=== PATIENT | female | born 1970 | race Caucasian/White ===

== ENCOUNTER 2019-02-24 09:44 | Inpatient (IN) | payer MEDICARE, MEDICAID ==
[~2019-02-24] VITALS: Ht 167.6 cm; Wt 190.0 kg
[~2019-02-24 09:44] MED LIST: BUPR300T86 PO; CELE200C PO
[2019-02-24] MEDS ORDERED: piperacillin/tazo 3.375gm/50ml 50 ML IV ONE (10:40)
[2019-02-24] MEDS ORDERED: vancomycin/NS 1 GM ADD-VANTAGE 250 ML IV ONE (10:40)
[2019-02-24] MEDS ORDERED: normal saline 1000ML IV soln IV ONE (10:40)
[2019-02-24 11:30] LABS: BASOPHILS % (AUTO) 0.5 % (0-1); EOSINOPHILS % (AUTO) 0.4 % (0-6); HEMOGLOBIN 14.3 g/dl (12.0-16.0); LYMPHOCYTES % (AUTO) 25.7 % (21-51); MEAN CORPUSCULAR HEMOGLOBIN 29.4 PG (27.0-31.0); MEAN CORPUSCULAR HGB CONC 33.3 g/dL (33.0-36.5); MEAN CORPUSCULAR VOLUME 88.4 FL (78-98); MONOCYTES # (AUTO) 0.5 X10'3 (0-0.9); MONOCYTES % (AUTO) 6.8 % (2-12); NEUTROPHILS # (AUTO) 5.1 X10'3 (1.8-7.7); NEUTROPHILS % (AUTO) 66.6 % (42-75); PLATELET COUNT 179 X10'3 (140-440); RED BLOOD COUNT 4.86 X10'6 (4.20-5.60); RED CELL DISTRIBUTION WIDTH 13.6 % (11.5-14.5); WHITE BLOOD COUNT 7.6 X10'3 (4.5-11.0)
[2019-02-24 12:05] LABS: ALANINE AMINOTRANSFERASE 14 U/L (12-78); ALBUMIN 3.3 G/DL (3.4-5.0); ALBUMIN/GLOBULIN RATIO 0.8 (1.1-1.5); ALKALINE PHOSPHATASE 60 IU/L (46-116); ANION GAP 9 (8-16); ASPARTATE AMINO TRANSFERASE 8 U/L (10-37); BILIRUBIN,TOTAL 0.6 MG/DL (0.1-1.0); BLOOD UREA NITROGEN 10 MG/DL (7-18); BUN/CREATININE RATIO 15.9 (6.6-38.0); CALCIUM 8.8 MG/DL (8.5-10.1); CHLORIDE 104 MMOL/L (99-107); CREATININE 0.63 MG/DL (0.40-0.90); GLUCOSE 99 MG/DL (70-104); POTASSIUM 3.7 MMOL/L (3.5-5.1); SODIUM 139 MMOL/L (135-145); TOTAL CARBON DIOXIDE 25.7 MMOL/L (24-32); TOTAL PROTEIN 7.7 G/DL (6.4-8.2); eGFR > 90 ML/MIN
[2019-02-24] MEDS ORDERED: magnesium Cl slow-release 64mg tablet PO PRN (12:50)
[2019-02-24] MEDS ORDERED: magnesium hydroxide 30ml (MOM) UD suspension PO PRN (12:50)
[2019-02-24] MEDS ORDERED: acetaminophen 325mg tablet PO PRN ×2 (12:50)
[2019-02-24] MEDS ORDERED: mag hydrox/Alum hydrox/simeth 30ml oral suspension PO PRN (12:50)
[2019-02-24] MEDS ORDERED: morphine 2 MG/ML inj. syringe IV PRN (12:50)
[2019-02-24] MEDS ORDERED: magnesium 2GM in 50ml NS 50 ML IV PRN (12:50)
[2019-02-24] MEDS ORDERED: potassium CL 10mEq/100ml bag 100 ML IV PRN ×2 (12:50)
[2019-02-24] MEDS ORDERED: potassium Cl 20 mEq SR tablet PO PRN (12:50)
[2019-02-24] MEDS ORDERED: magnesium 4gm in 100ml NS 100 ML IV PRN (12:50)
[2019-02-24] MEDS ORDERED: HYDROcodone/acetaminophen 5mg/325mg tablet PO PRN (12:50)
[2019-02-24] MEDS ORDERED: DULO30CA52 PO (12:58)
[2019-02-24] MEDS ORDERED: MIRT15TA PO (12:58)
[2019-02-24] MEDS ORDERED: NYST15PO4 TOP (13:01)
[2019-02-24] MEDS ORDERED: LORazepam 2 mg/ml vial IV STA (13:16)
[2019-02-24] MEDS ORDERED: LORazepam 2 mg/ml vial IV ONE (13:25)
--- NOTE | 2019-02-24 13:28 | NUR ---
pt talking with tech and began coughing and hyperventilating. Pt unwilling to open eyes or speak to staff. Ohlfs at bedside. Pt attempted to remove PIV with teeth said she wants to go home and tried to get up, biting at staff. MD requested soft upper limb restraints. Required 4 nurses and MD at bedside to keep patient from removing lines and not getting out of bed. Pt crying and appears to be trying to gag herself to throw up. HOB is up, suction at bedside. Attempting to calm patient down. Ativan given per MD order.
[2019-02-24] MEDS: normal saline 1000ml 1,000 ML IV SCH ×2 (14:10→22:49)
--- NOTE | 2019-02-24 15:20 | NUR ---
pt has wrist restraints but still managing to pull at PIV. Unable to administer vancomycin due to patient combativeness. Nurse at bedside. MD aware and pharmacist being called for medication schedule chnage.
--- NOTE | 2019-02-24 16:29 | NUR ---
non-behavioral restraints soft limb upper extremity restraints placed at 1323 per MD order. behavioral restraints were ordered by mistake. Charge nurse revising computer order. Pt was placed in soft limb restraints for confusion, pulling at lines, and unable to follow commands to keep patient safe.
--- NOTE | 2019-02-24 16:45 | NUR ---
Received report from KAILASH Ontiveros in ED.
[2019-02-24] MEDS: morphine 2 MG/ML inj. syringe IV PRN (17:21)
--- NOTE | 2019-02-24 17:40 | NUR ---
Patient receiving a lab draw and began hyperventilating, face became red, patient refused to respond to staff, or open her eyes. Kathi, dry charge process attendant, myself and sitter and aide at bedside, attempting to calm patient down. O2 saturation 98% with HR of 90, BP 150/90. Communicated to quality control lab technician to come back at a later time. Respiratory therapy called to bedside, got a fan and patient now calming down. notified and requested ativan. awaiting further orders.
[2019-02-24 17:51] VITALS: BP 150/98
[2019-02-24] MEDS: LORazepam 2 mg/ml vial IV PRN (18:21)
--- NOTE | 2019-02-24 18:35 | NUR ---
Patient in room [facility]. I have received report from Michelle LINDER and Rachel RN and had the opportunity to ask questions and assume patient care.
--- NOTE | 2019-02-24 18:36 | NUR ---
patient continues to bang head against the rail seizure pads placed and restraints, patient has sitter. medicated also with Ativan night staff will continue to monitor
--- NOTE | 2019-02-24 19:21 | NUR ---
Patient has just fallen to sleep, RN will give meds when patient wakes up as patient is very agitated and upset and a danger to self when awake. Patient is sleeping in bed, breathing even and unlabored. no s/s of distress. Sitter at bedside. Will continue to monitor closely.
[2019-02-24 21:00] VITALS: BP 132/69
[2019-02-24] MEDS: heparin, porcine 5000 units/ml vial SQ SCH (21:10)
[2019-02-24] MEDS: mirtazapine 15mg tablet PO SCH (21:26)
[2019-02-24] MEDS: docusate sod 100mg capsule PO SCH (21:26)
[2019-02-24] MEDS: HYDROcodone/acetaminophen 10/325mg tab PO PRN (21:38)
[2019-02-24] MEDS ORDERED: haloperidol lactate 5mg/ml inj IM PRN (21:50)
[2019-02-24] MEDS: quetiapine 100mg tablet PO PRN (22:00)
[2019-02-25] MEDS: normal saline 1000ml 1,000 ML IV SCH ×2 (00:21→12:41)
[2019-02-25 06:30] VITALS: BP 132/78
--- NOTE | 2019-02-25 06:35 | NUR ---
Problems reprioritized. Patient report given, questions answered & plan of care reviewed with Kristyn LINDER
--- NOTE | 2019-02-25 06:40 | NUR ---
Patient in room [facility]. I have received report from KAILASH Rosenberg and had the opportunity to ask questions and assume patient care.
--- NOTE | 2019-02-25 07:15 | NUR ---
Lab reports they are unable to obtain labs 2/2 pt resistance even with the help of 2 other people.
[2019-02-25] MEDS: K and/or MAG REPLACEMENT MC SCH (07:29)
[2019-02-25] MEDS: docusate sod 100mg capsule PO SCH ×2 (08:21→20:53)
[2019-02-25] MEDS: heparin, porcine 5000 units/ml vial SQ SCH ×2 (08:32→20:53)
[2019-02-25] MEDS: LORazepam 2 mg/ml vial IV PRN ×3 (08:50→17:58)
[2019-02-25 11:00] VITALS: BP 131/67
[2019-02-25] MEDS ORDERED: MESSAGE TO NURSING IV ONE (13:30)
[2019-02-25] MEDS ORDERED: VANCOMYCIN LEVEL IV NR (13:30)
[2019-02-25 14:15] LABS: ALBUMIN 2.7 G/DL (3.4-5.0); ANION GAP 8 (8-16); BLOOD UREA NITROGEN 6 MG/DL (7-18); BUN/CREATININE RATIO 10.7 (6.6-38.0); CALCIUM 8.3 MG/DL (8.5-10.1); CHLORIDE 108 MMOL/L (99-107); CREATININE 0.56 MG/DL (0.40-0.90); GLUCOSE 87 MG/DL (70-104); MAGNESIUM 1.9 MG/DL (1.5-2.4); POTASSIUM 3.9 MMOL/L (3.5-5.1); SODIUM 139 MMOL/L (135-145); eGFR > 90 ML/MIN
[2019-02-25 14:16] LABS: BASOPHILS % (AUTO) 0.3 % (0-1); EOSINOPHILS # (AUTO) 0.1 X10'3 (0-0.9); EOSINOPHILS % (AUTO) 1.4 % (0-6); HEMOGLOBIN 12.9 g/dl (12.0-16.0); LYMPHOCYTES # (AUTO) 1.9 X10'3 (1.1-4.8); LYMPHOCYTES % (AUTO) 29.4 % (21-51); MEAN CORPUSCULAR HEMOGLOBIN 29.5 PG (27.0-31.0); MEAN CORPUSCULAR VOLUME 89.5 FL (78-98); MEAN PLATELET VOLUME 10.3 FL (7.4-10.4); MONOCYTES # (AUTO) 0.3 X10'3 (0-0.9); MONOCYTES % (AUTO) 5.3 % (2-12); NEUTROPHILS # (AUTO) 4.1 X10'3 (1.8-7.7); NEUTROPHILS % (AUTO) 63.6 % (42-75); PLATELET COUNT 169 X10'3 (140-440); RED BLOOD COUNT 4.35 X10'6 (4.20-5.60); RED CELL DISTRIBUTION WIDTH 13.8 % (11.5-14.5); WHITE BLOOD COUNT 6.4 X10'3 (4.5-11.0)
[2019-02-25 18:00] VITALS: BP 128/72
--- NOTE | 2019-02-25 18:15 | NUR ---
Problems reprioritized. Patient report given, questions answered & plan of care reviewed with KAILASH De León.
--- NOTE | 2019-02-25 18:33 | NUR ---
Patient in room [facility]. I have received report from KAILASH Simons and had the opportunity to ask questions and assume patient care. Addendum: 02/25/19 at 1835 by Joan Hogan RN Amended: Links added.
[2019-02-25] MEDS: mirtazapine 15mg tablet PO SCH (20:53)
[2019-02-25] MEDS: lactobacillus rhamnosus 10,000 MMU CELLS/CAPSULE PO SCH (20:53)
[2019-02-26] MEDS: LORazepam 2 mg/ml vial IV PRN ×5 (00:16→23:06)
[2019-02-26] MEDS: quetiapine 100mg tablet PO PRN (00:30)
[2019-02-26] MEDS: normal saline 1000ml 1,000 ML IV SCH ×2 (05:32→15:14)
--- NOTE | 2019-02-26 06:15 | NUR ---
Patient in room [facility]. I have received report from KAILASH De León and had the opportunity to ask questions and assume patient care.
--- NOTE | 2019-02-26 06:29 | NUR ---
Problems reprioritized. Patient report given, questions answered & plan of care reviewed with KAILASH Simons. Addendum: 02/26/19 at 8728 by Joan Hogan RN Amended: Links added.
[2019-02-26 06:30] VITALS: BP 132/92
[2019-02-26] MEDS: K and/or MAG REPLACEMENT MC SCH (07:46)
[2019-02-26] MEDS: lactobacillus rhamnosus 10,000 MMU CELLS/CAPSULE PO SCH ×2 (09:42→22:41)
[2019-02-26] MEDS: docusate sod 100mg capsule PO SCH ×2 (09:42→22:41)
[2019-02-26] MEDS: heparin, porcine 5000 units/ml vial SQ SCH ×2 (09:46→22:43)
--- NOTE | 2019-02-26 12:00 | NUR ---
Pt refused VS check
[2019-02-26 14:45] LABS: CLARITY,URINE CLEAR (Clear); COLOR,URINE STRAW (Yellow); GLUCOSE, URINE NEGATIVE (Neg); KETONES,URINE >=80 mg/dl (Neg); LEUKOCYTE ESTERASE ,URINE NEGATIVE (Neg); NITRITES, URINE NEGATIVE (Neg); OCCULT BLOOD,URINE MODERATE (Neg); PH,URINE 5.5 (4.8-8.0); PROTEIN,URINE NEGATIVE (Neg); UROBILINOGEN,URINE 0.2 E.U/dL (0.2-1.0)
[2019-02-26 14:50] LABS: UA COLLECTION TYPE FOLEY CATH
[2019-02-26 14:54] LABS: BACTERIA,URINE FEW /HPF (Neg); MUCUS STRANDS FEW /LPF (Neg); SQUAMOUS EPITHELIAL CELL,UR FEW /LPF (FEW); WBC,URINE 0-4 /HPF (0-4)
--- NOTE | 2019-02-26 18:30 | NUR ---
Problems reprioritized. Patient report given, questions answered & plan of care reviewed with KAILASH Pagan.
--- NOTE | 2019-02-26 18:50 | NUR ---
Patient in room [facility]. I have received report from Kristyn LINDER and had the opportunity to ask questions and assume patient care.
[2019-02-26 19:00] VITALS: BP 142/52
[2019-02-26 20:13] LABS: BASOPHILS % (AUTO) 0.4 % (0-1); EOSINOPHILS # (AUTO) 0.1 X10'3 (0-0.9); EOSINOPHILS % (AUTO) 1.4 % (0-6); HEMATOCRIT 38.5 % (35.0-45.0); HEMOGLOBIN 12.6 g/dl (12.0-16.0); LYMPHOCYTES # (AUTO) 1.6 X10'3 (1.1-4.8); MEAN CORPUSCULAR HGB CONC 32.7 g/dL (33.0-36.5); MEAN CORPUSCULAR VOLUME 88.5 FL (78-98); MEAN PLATELET VOLUME 9.8 FL (7.4-10.4); MONOCYTES # (AUTO) 0.3 X10'3 (0-0.9); MONOCYTES % (AUTO) 5.1 % (2-12); NEUTROPHILS # (AUTO) 4.1 X10'3 (1.8-7.7); NEUTROPHILS % (AUTO) 67.1 % (42-75); PLATELET COUNT 171 X10'3 (140-440); RED BLOOD COUNT 4.35 X10'6 (4.20-5.60); RED CELL DISTRIBUTION WIDTH 13.8 % (11.5-14.5); WHITE BLOOD COUNT 6.2 X10'3 (4.5-11.0)
[2019-02-26 20:15] LABS: ALBUMIN 2.4 G/DL (3.4-5.0); ANION GAP 10 (8-16); BLOOD UREA NITROGEN 5 MG/DL (7-18); BUN/CREATININE RATIO 9.4 (6.6-38.0); CHLORIDE 107 MMOL/L (99-107); CREATININE 0.53 MG/DL (0.40-0.90); GLUCOSE 101 MG/DL (70-104); MAGNESIUM 1.7 MG/DL (1.5-2.4); POTASSIUM 3.3 MMOL/L (3.5-5.1); SODIUM 139 MMOL/L (135-145); TOTAL CARBON DIOXIDE 22.2 MMOL/L (24-32); eGFR > 90 ML/MIN
[2019-02-26] MEDS: mirtazapine 15mg tablet PO SCH (22:49)
[2019-02-26] MEDS: morphine 2 MG/ML inj. syringe IV PRN (23:30)
[2019-02-27] VITALS: BP 163/80
[2019-02-27] MEDS: normal saline 1000ml 1,000 ML IV SCH ×2 (00:49→11:43)
[2019-02-27] MEDS: potassium Cl 20 mEq SR tablet PO PRN ×2 (02:40→08:10)
[2019-02-27] MEDS: quetiapine 100mg tablet PO PRN (02:40)
--- NOTE | 2019-02-27 06:15 | NUR ---
Patient in room [facility]. I have received report from KAILASH Pagan and had the opportunity to ask questions and assume patient care.
[2019-02-27 06:30] VITALS: BP 164/91
--- NOTE | 2019-02-27 06:46 | NUR ---
Problems reprioritized. Patient report given, questions answered & plan of care reviewed with Kristyn RN.
[2019-02-27] MEDS: K and/or MAG REPLACEMENT MC SCH (06:50)
[2019-02-27] MEDS: docusate sod 100mg capsule PO SCH ×2 (07:47→20:00)
[2019-02-27] MEDS: heparin, porcine 5000 units/ml vial SQ SCH ×2 (07:47→20:00)
[2019-02-27] MEDS: lactobacillus rhamnosus 10,000 MMU CELLS/CAPSULE PO SCH ×2 (07:47→20:00)
[2019-02-27] MEDS: CefTRIAXone 2gm/D5W 50ml 50 ML IV SCH (07:48)
[2019-02-27] MEDS: LORazepam 2 mg/ml vial IV PRN ×2 (07:48→13:52)
[2019-02-27 11:00] VITALS: BP 184/93
[2019-02-27] MEDS: morphine 2 MG/ML inj. syringe IV PRN (11:44)
[2019-02-27 16:44] LABS: BASOPHILS % (AUTO) 0.4 % (0-1); EOSINOPHILS # (AUTO) 0.1 X10'3 (0-0.9); EOSINOPHILS % (AUTO) 1.5 % (0-6); HEMOGLOBIN 12.9 g/dl (12.0-16.0); LYMPHOCYTES # (AUTO) 1.6 X10'3 (1.1-4.8); LYMPHOCYTES % (AUTO) 26.7 % (21-51); MEAN CORPUSCULAR HEMOGLOBIN 29.2 PG (27.0-31.0); MEAN CORPUSCULAR HGB CONC 33.1 g/dL (33.0-36.5); MEAN CORPUSCULAR VOLUME 88.3 FL (78-98); MEAN PLATELET VOLUME 9.8 FL (7.4-10.4); MONOCYTES # (AUTO) 0.3 X10'3 (0-0.9); MONOCYTES % (AUTO) 5.7 % (2-12); NEUTROPHILS % (AUTO) 65.7 % (42-75); PLATELET COUNT 183 X10'3 (140-440); RED BLOOD COUNT 4.42 X10'6 (4.20-5.60); RED CELL DISTRIBUTION WIDTH 13.6 % (11.5-14.5); WHITE BLOOD COUNT 6.1 X10'3 (4.5-11.0)
[2019-02-27 16:54] LABS: ALBUMIN 2.4 G/DL (3.4-5.0); ANION GAP 9 (8-16); BLOOD UREA NITROGEN 5 MG/DL (7-18); BUN/CREATININE RATIO 9.4 (6.6-38.0); CALCIUM 7.7 MG/DL (8.5-10.1); CHLORIDE 109 MMOL/L (99-107); CREATININE 0.53 MG/DL (0.40-0.90); GLUCOSE 99 MG/DL (70-104); MAGNESIUM 1.7 MG/DL (1.5-2.4); POTASSIUM 3.5 MMOL/L (3.5-5.1); SODIUM 141 MMOL/L (135-145); eGFR > 90 ML/MIN
--- NOTE | 2019-02-27 18:40 | NUR ---
Problems reprioritized. Patient report given, questions answered & plan of care reviewed with KAILASH Haley.
[2019-02-27 20:00] VITALS: BP 149/74
[2019-02-28 00:57] VITALS: BP 123/66
[2019-02-28] MEDS ORDERED: DULO-31 PO (01:22)
[2019-02-28] MEDS ORDERED: FURO-150 PO (01:22)
[2019-02-28] MEDS ORDERED: POTA10TA36 PO (01:22)
[2019-02-28] MEDS: mirtazapine 15mg tablet PO SCH ×2 (03:20→20:13)
[2019-02-28] MEDS: LORazepam 2 mg/ml vial IV PRN ×2 (03:56→09:25)
[2019-02-28 05:13] LABS: BASOPHILS # (AUTO) 0.1 X10'3 (0-0.2); BASOPHILS % (AUTO) 0.9 % (0-1); EOSINOPHILS # (AUTO) 0.1 X10'3 (0-0.9); EOSINOPHILS % (AUTO) 1.6 % (0-6); HEMATOCRIT 40.7 % (35.0-45.0); HEMOGLOBIN 13.2 g/dl (12.0-16.0); LYMPHOCYTES # (AUTO) 1.7 X10'3 (1.1-4.8); LYMPHOCYTES % (AUTO) 27.2 % (21-51); MEAN CORPUSCULAR HEMOGLOBIN 28.8 PG (27.0-31.0); MEAN CORPUSCULAR HGB CONC 32.5 g/dL (33.0-36.5); MEAN CORPUSCULAR VOLUME 88.6 FL (78-98); MEAN PLATELET VOLUME 9.7 FL (7.4-10.4); MONOCYTES # (AUTO) 0.5 X10'3 (0-0.9); MONOCYTES % (AUTO) 7.3 % (2-12); PLATELET COUNT 187 X10'3 (140-440); RED BLOOD COUNT 4.59 X10'6 (4.20-5.60); RED CELL DISTRIBUTION WIDTH 13.9 % (11.5-14.5); WHITE BLOOD COUNT 6.4 X10'3 (4.5-11.0)
[2019-02-28 05:38] LABS: ALBUMIN 2.5 G/DL (3.4-5.0); ANION GAP 10 (8-16); BLOOD UREA NITROGEN 5 MG/DL (7-18); BUN/CREATININE RATIO 9.8 (6.6-38.0); CALCIUM 8.3 MG/DL (8.5-10.1); CHLORIDE 108 MMOL/L (99-107); CREATININE 0.51 MG/DL (0.40-0.90); GLUCOSE 102 MG/DL (70-104); MAGNESIUM 1.6 MG/DL (1.5-2.4); POTASSIUM 3.3 MMOL/L (3.5-5.1); SODIUM 141 MMOL/L (135-145); TOTAL CARBON DIOXIDE 23.1 MMOL/L (24-32); eGFR > 90 ML/MIN
--- NOTE | 2019-02-28 06:37 | NUR ---
Problems reprioritized. Patient report given, questions answered & plan of care reviewed with KAILASH Brown.
[2019-02-28 07:24] VITALS: BP 164/91
[2019-02-28] MEDS: K and/or MAG REPLACEMENT MC SCH (08:00)
[2019-02-28] MEDS: docusate sod 100mg capsule PO SCH ×2 (08:00→20:13)
[2019-02-28] MEDS: CefTRIAXone 2gm/D5W 50ml 50 ML IV SCH (09:15)
[2019-02-28] MEDS: heparin, porcine 5000 units/ml vial SQ SCH ×2 (09:25→20:12)
[2019-02-28] MEDS: lactobacillus rhamnosus 10,000 MMU CELLS/CAPSULE PO SCH ×2 (09:25→20:13)
[2019-02-28] MEDS: HYDROcodone/acetaminophen 10/325mg tab PO PRN (14:02)
[2019-02-28] MEDS ORDERED: potassium CL 10mEq/100ml bag 100 ML IV PRN (16:05)
[2019-02-28] MEDS ORDERED: potassium Cl 20 mEq SR tablet PO PRN (16:05)
[2019-02-28] MEDS: duloxetine 30mg CAPSULE.DR PO SCH (17:35)
[2019-02-28] MEDS: potassium Cl 20 mEq SR tablet PO PRN ×2 (17:36→21:27)
--- NOTE | 2019-02-28 18:57 | NUR ---
Patient in room [facility]. I have received report from KAILASH Fletcher and had the opportunity to ask questions and assume patient care. Addendum: 02/28/19 at 1857 by Joan Hogan RN Amended: Links added.
[2019-02-28 20:00] VITALS: BP 158/90
[2019-02-28] MEDS: morphine 2 MG/ML inj. syringe IV PRN (20:11)
[2019-02-28] MEDS: potassium chloride 10mEq ER tablet PO SCH (20:13)
[2019-02-28] MEDS: furosemide 20MG tablet PO SCH (20:13)
[2019-02-28] MEDS: quetiapine 100mg tablet PO PRN (21:29)
[2019-03-01] VITALS: BP 159/90
--- NOTE | 2019-03-01 06:30 | NUR ---
Problems reprioritized. Patient report given, questions answered & plan of care reviewed with KAILASH TITUS.
[2019-03-01 07:08] LABS: BASOPHILS % (AUTO) 0.6 % (0-1); EOSINOPHILS # (AUTO) 0.1 X10'3 (0-0.9); HEMATOCRIT 42.3 % (35.0-45.0); HEMOGLOBIN 14.1 g/dl (12.0-16.0); LYMPHOCYTES # (AUTO) 1.5 X10'3 (1.1-4.8); LYMPHOCYTES % (AUTO) 20.3 % (21-51); MEAN CORPUSCULAR HEMOGLOBIN 29.3 PG (27.0-31.0); MEAN CORPUSCULAR HGB CONC 33.3 g/dL (33.0-36.5); MEAN CORPUSCULAR VOLUME 87.9 FL (78-98); MONOCYTES # (AUTO) 0.5 X10'3 (0-0.9); MONOCYTES % (AUTO) 7.3 % (2-12); NEUTROPHILS # (AUTO) 5.1 X10'3 (1.8-7.7); NEUTROPHILS % (AUTO) 69.8 % (42-75); PLATELET COUNT 190 X10'3 (140-440); RED BLOOD COUNT 4.82 X10'6 (4.20-5.60); RED CELL DISTRIBUTION WIDTH 13.6 % (11.5-14.5); WHITE BLOOD COUNT 7.3 X10'3 (4.5-11.0)
[2019-03-01 07:25] VITALS: BP 144/71
[2019-03-01 07:36] LABS: ALBUMIN 2.7 G/DL (3.4-5.0); ANION GAP 7 (8-16); BLOOD UREA NITROGEN 6 MG/DL (7-18); BUN/CREATININE RATIO 11.1 (6.6-38.0); CALCIUM 8.6 MG/DL (8.5-10.1); CHLORIDE 105 MMOL/L (99-107); CREATININE 0.54 MG/DL (0.40-0.90); GLUCOSE 101 MG/DL (70-104); MAGNESIUM 1.5 MG/DL (1.5-2.4); SODIUM 141 MMOL/L (135-145); TOTAL CARBON DIOXIDE 29.1 MMOL/L (24-32); eGFR > 90 ML/MIN
[2019-03-01] MEDS: K and/or MAG REPLACEMENT MC SCH (08:00)
[2019-03-01] MEDS: potassium chloride 10mEq ER tablet PO SCH ×2 (08:13→20:08)
[2019-03-01] MEDS: CefTRIAXone 2gm/D5W 50ml 50 ML IV SCH (08:13)
[2019-03-01] MEDS: duloxetine 30mg CAPSULE.DR PO SCH (08:13)
[2019-03-01] MEDS: lactobacillus rhamnosus 10,000 MMU CELLS/CAPSULE PO SCH ×2 (08:13→20:08)
[2019-03-01] MEDS: heparin, porcine 5000 units/ml vial SQ SCH ×2 (08:14→20:13)
[2019-03-01] MEDS: docusate sod 100mg capsule PO SCH ×2 (08:14→20:08)
[2019-03-01] MEDS: furosemide 20MG tablet PO SCH ×2 (08:14→20:08)
[2019-03-01 11:00] VITALS: BP 156/87
--- NOTE | 2019-03-01 11:05 | NUR ---
Initial: Pt admit with bilat chronic lymphedema with suspected cellulitis. Pt has been in restraints with a sitter d/t current mentation. Pt on heart healthy diet documented to have refused all meals 02/25-02/27; poor PO intake likely r/t mentation. Pt documented with 75-100% PO intake 02/28, pending PO intake for today. Per MD notes pt overall behaving a little better. Pt A/O x 1 and confused per physical assessment. LB 02/27. Will follow closely and monitor PO trends and need for ONS. Recommendations: 1) Advance to regular diet as medically indicated 2) Monitor need for ONS 3) Wt per rx Addendum: 03/01/19 at [address] Amended: Links added.
[2019-03-01] MEDS: LORazepam 2 mg/ml vial IV PRN ×2 (13:21→20:23)
--- NOTE | 2019-03-01 18:12 | NUR ---
Problems reprioritized. Patient report given, questions answered & plan of care reviewed with KAILASH Haley.
--- NOTE | 2019-03-01 18:30 | NUR ---
Patient in room [facility]. I have received report from KAILASH TITUS and had the opportunity to ask questions and assume patient care. Addendum: 03/01/19 at 1830 by Joan Hogan RN Amended: Links added.
[2019-03-01 20:00] VITALS: BP 115/70
[2019-03-01] MEDS: mirtazapine 15mg tablet PO SCH (20:08)
[2019-03-02] VITALS: BP 147/83
[2019-03-02] MEDS: nystatin 15 GM powder TP SCH ×4 (02:42→20:20)
[2019-03-02] MEDS: LORazepam 2 mg/ml vial IV PRN ×3 (02:48→20:34)
--- NOTE | 2019-03-02 06:27 | NUR ---
Problems reprioritized. Patient report given, questions answered & plan of care reviewed with KAILASH Luis.
[2019-03-02 07:15] VITALS: BP 144/84
[2019-03-02] MEDS: K and/or MAG REPLACEMENT MC SCH (08:00)
[2019-03-02] MEDS: potassium chloride 10mEq ER tablet PO SCH ×2 (08:27→20:13)
[2019-03-02] MEDS: CefTRIAXone 2gm/D5W 50ml 50 ML IV SCH (08:27)
[2019-03-02] MEDS: furosemide 20MG tablet PO SCH ×2 (08:27→20:14)
[2019-03-02] MEDS: lactobacillus rhamnosus 10,000 MMU CELLS/CAPSULE PO SCH ×2 (08:27→20:14)
[2019-03-02] MEDS: duloxetine 30mg CAPSULE.DR PO SCH (08:27)
[2019-03-02] MEDS: docusate sod 100mg capsule PO SCH ×2 (08:27→20:13)
[2019-03-02] MEDS: heparin, porcine 5000 units/ml vial SQ SCH ×2 (08:28→20:12)
[2019-03-02 11:00] VITALS: BP 122/81
[2019-03-02 18:00] VITALS: BP 112/59
--- NOTE | 2019-03-02 18:25 | NUR ---
Patient in room [facility]. I have received report from KAILASH Moe and had the opportunity to ask questions and assume patient care.
--- NOTE | 2019-03-02 18:45 | NUR ---
Problems reprioritized. Patient report given, questions answered & plan of care reviewed with KAILASH Billy.
[2019-03-02] MEDS: mirtazapine 15mg tablet PO SCH (20:13)
[2019-03-03] VITALS: BP 108/67
--- NOTE | 2019-03-03 06:37 | NUR ---
Problems reprioritized. Patient report given, questions answered & plan of care reviewed with KAILASH Kothari.
--- NOTE | 2019-03-03 06:39 | NUR ---
Patient in room [facility]. I have received report from KAILASH Billy and had the opportunity to ask questions and assume patient care.
[2019-03-03 08:00] VITALS: BP 129/75
[2019-03-03] MEDS: K and/or MAG REPLACEMENT MC SCH (08:00)
[2019-03-03] MEDS: duloxetine 30mg CAPSULE.DR PO SCH (09:28)
[2019-03-03] MEDS: lactobacillus rhamnosus 10,000 MMU CELLS/CAPSULE PO SCH ×2 (09:28→20:25)
[2019-03-03] MEDS: docusate sod 100mg capsule PO SCH ×2 (09:28→20:25)
[2019-03-03] MEDS: potassium chloride 10mEq ER tablet PO SCH ×2 (09:28→20:25)
[2019-03-03] MEDS: cefpodoxime proxetil 100mg tablet PO SCH ×2 (09:28→17:30)
[2019-03-03] MEDS: heparin, porcine 5000 units/ml vial SQ SCH ×2 (09:29→20:31)
[2019-03-03] MEDS: furosemide 20MG tablet PO SCH ×2 (09:29→20:25)
[2019-03-03] MEDS: nystatin 15 GM powder TP SCH ×3 (09:29→20:33)
[2019-03-03 12:00] VITALS: BP 109/60
[2019-03-03] MEDS: LORazepam 2 mg/ml vial IV PRN ×2 (13:39→20:27)
[2019-03-03 18:00] VITALS: BP 110/65
--- NOTE | 2019-03-03 18:22 | NUR ---
Patient in room [facility]. I have received report from KAILASH MERRITT and had the opportunity to ask questions and assume patient care.
--- NOTE | 2019-03-03 18:22 | NUR ---
Patient in PROCEDURE, EGD. I have received report from KAILASH MERRITT and had the opportunity to ask questions and assume patient care. AWAITING PT ARRIVAL BACK TO UNIT FROM PROCEDURE. Addendum: 03/03/19 at 1847 by Jeovanny Law RN DISREGARD NOTE, WRONG PATIENT
--- NOTE | 2019-03-03 18:45 | NUR ---
Problems reprioritized. Patient report given, questions answered & plan of care reviewed with KAILASH Billy.
[2019-03-03] MEDS: mirtazapine 15mg tablet PO SCH (20:25)
--- NOTE | 2019-03-03 21:45 | NUR ---
pt attempted to exit bed. after placing back into bed, surrounding skin of genitalia breakdown noted. placed Calazime lotion and nystatin.
[2019-03-04] VITALS: BP_SYST 115; BP_SYST 125; BP_DIAS 60; BP_DIAS 61
--- NOTE | 2019-03-04 06:25 | NUR ---
Patient in room [facility]. I have received report from KAILASH Billy and had the opportunity to ask questions and assume patient care.
[2019-03-04 06:30] VITALS: BP 117/71
--- NOTE | 2019-03-04 06:46 | NUR ---
Problems reprioritized. Patient report given, questions answered & plan of care reviewed with KAILASH Simons.
[2019-03-04] MEDS: K and/or MAG REPLACEMENT MC SCH (07:17)
[2019-03-04] MEDS: cefpodoxime proxetil 100mg tablet PO SCH ×2 (08:47→17:19)
[2019-03-04] MEDS: potassium chloride 10mEq ER tablet PO SCH ×2 (08:47→20:09)
[2019-03-04] MEDS: docusate sod 100mg capsule PO SCH ×2 (08:47→20:09)
[2019-03-04] MEDS: furosemide 20MG tablet PO SCH ×2 (08:49→20:09)
[2019-03-04] MEDS: lactobacillus rhamnosus 10,000 MMU CELLS/CAPSULE PO SCH ×2 (08:49→20:09)
[2019-03-04] MEDS: heparin, porcine 5000 units/ml vial SQ SCH ×2 (08:49→20:11)
[2019-03-04] MEDS: duloxetine 30mg CAPSULE.DR PO SCH (08:49)
[2019-03-04] MEDS: nystatin 15 GM powder TP SCH ×3 (08:51→20:12)
[2019-03-04 11:00] VITALS: BP 135/78
[2019-03-04 18:00] VITALS: BP 127/70
--- NOTE | 2019-03-04 18:07 | NUR ---
Patient in room [facility]. I have received report from KAILASH Simons and had the opportunity to ask questions and assume patient care.
[2019-03-04] MEDS: mirtazapine 15mg tablet PO SCH (20:09)
[2019-03-04] MEDS: LORazepam 2 mg/ml vial IV PRN (22:52)
[2019-03-05] VITALS: BP 113/85
[2019-03-05 06:30] VITALS: BP 144/78
--- NOTE | 2019-03-05 06:30 | NUR ---
Patient in room [facility]. I have received report from KAILASH Billy and had the opportunity to ask questions and assume patient care.
--- NOTE | 2019-03-05 06:33 | NUR ---
Problems reprioritized. Patient report given, questions answered & plan of care reviewed with KAILASH Simons.
[2019-03-05] MEDS: K and/or MAG REPLACEMENT MC SCH (06:56)
[2019-03-05 09:49] LABS: BASOPHILS # (AUTO) 0.1 X10'3 (0-0.2); BASOPHILS % (AUTO) 0.9 % (0-1); EOSINOPHILS # (AUTO) 0.2 X10'3 (0-0.9); EOSINOPHILS % (AUTO) 2.6 % (0-6); HEMATOCRIT 48.2 % (35.0-45.0); HEMOGLOBIN 16.3 g/dl (12.0-16.0); LYMPHOCYTES % (AUTO) 29.5 % (21-51); MEAN CORPUSCULAR HEMOGLOBIN 29.6 PG (27.0-31.0); MEAN CORPUSCULAR HGB CONC 33.7 g/dL (33.0-36.5); MEAN CORPUSCULAR VOLUME 87.8 FL (78-98); MEAN PLATELET VOLUME 9.8 FL (7.4-10.4); MONOCYTES # (AUTO) 0.5 X10'3 (0-0.9); MONOCYTES % (AUTO) 7.8 % (2-12); NEUTROPHILS % (AUTO) 59.2 % (42-75); PLATELET COUNT 199 X10'3 (140-440); RED BLOOD COUNT 5.49 X10'6 (4.20-5.60); RED CELL DISTRIBUTION WIDTH 13.8 % (11.5-14.5); WHITE BLOOD COUNT 6.8 X10'3 (4.5-11.0)
[2019-03-05] MEDS: potassium chloride 10mEq ER tablet PO SCH ×2 (09:54→20:22)
[2019-03-05] MEDS: lactobacillus rhamnosus 10,000 MMU CELLS/CAPSULE PO SCH ×2 (09:54→20:21)
[2019-03-05] MEDS: docusate sod 100mg capsule PO SCH ×2 (09:54→20:21)
[2019-03-05] MEDS: furosemide 20MG tablet PO SCH ×2 (09:55→20:22)
[2019-03-05] MEDS: duloxetine 30mg CAPSULE.DR PO SCH (09:55)
[2019-03-05] MEDS: heparin, porcine 5000 units/ml vial SQ SCH ×2 (09:56→20:24)
[2019-03-05] MEDS: nystatin 15 GM powder TP SCH ×3 (09:56→20:22)
[2019-03-05 10:00] LABS: ALBUMIN 3.2 G/DL (3.4-5.0); ANION GAP 6 (8-16); BLOOD UREA NITROGEN 14 MG/DL (7-18); BUN/CREATININE RATIO 20.9 (6.6-38.0); CHLORIDE 100 MMOL/L (99-107); CREATININE 0.67 MG/DL (0.40-0.90); GLUCOSE 120 MG/DL (70-104); MAGNESIUM 1.8 MG/DL (1.5-2.4); POTASSIUM 3.9 MMOL/L (3.5-5.1); SODIUM 138 MMOL/L (135-145); TOTAL CARBON DIOXIDE 32.1 MMOL/L (24-32); eGFR > 90 ML/MIN
[2019-03-05 10:02] LABS: CALCIUM 9.6 MG/DL (8.5-10.1)
[2019-03-05] MEDS: LORazepam 2 mg/ml vial IV PRN ×3 (10:30→20:19)
[2019-03-05 11:00] VITALS: BP 136/76
--- NOTE | 2019-03-05 14:52 | NUR ---
Nutrition consult RE "pt requests only veggies broccoli and asparagus; likes hamburgers:" Pt currently AOx1 w/ acute psychotic symptoms including mood swings, agitation, and self-harm following behavioral healthy MD per MD note. Will continue to send regular diet and monitor for pt preferences once more appropriate. PO 25%/refusing meals w/ ALOC. LBM 03/04. Ensure pudding TIDWM added for additional protein needs; dietary notified. Will continue to monitor. Recommendations: 1) Continue regular diet 2) ensure pudding TIDWM 3) Wt per rx Addendum: 03/05/19 at [address] Amended: Links added.
--- NOTE | 2019-03-05 15:15 | NUR ---
Bladder nfbw=263. Pt has not voided today & states the last time she voided it severely burned. Request for FC from . Order received.
[2019-03-05 15:57] LABS: CLARITY,URINE SLIGHTLY CLOUDY (Clear); COLOR,URINE YELLOW (Yellow); GLUCOSE, URINE NEGATIVE (Neg); KETONES,URINE NEGATIVE (Neg); LEUKOCYTE ESTERASE ,URINE MODERATE (Neg); NITRITES, URINE NEGATIVE (Neg); OCCULT BLOOD,URINE TRACE-LYSED (Neg); PROTEIN,URINE NEGATIVE (Neg); UROBILINOGEN,URINE 0.2 E.U/dL (0.2-1.0)
[2019-03-05 16:03] LABS: UA COLLECTION TYPE NON-SPECIFIED
[2019-03-05 16:06] LABS: BACTERIA,URINE 1+ /HPF (Neg); MUCUS STRANDS FEW /LPF (Neg); RBC,URINE 0-2 /HPF (0-2); SQUAMOUS EPITHELIAL CELL,UR MODERATE /LPF (FEW)
[2019-03-05 16:07] LABS: CAL OXALATE CRYSTALS 1+ /HPF (NEGATIVE); HYALINE CASTS 0-3 /LPF (NEGATIVE); YEAST FEW /HPF (NEGATIVE)
--- NOTE | 2019-03-05 18:20 | NUR ---
Patient in room [facility]. I have received report from Autumn LINDER and had the opportunity to ask questions and assume patient care.
--- NOTE | 2019-03-05 18:25 | NUR ---
Problems reprioritized. Patient report given, questions answered & plan of care reviewed with KAILASH Pagan.
[2019-03-05] MEDS: ondansetron/PF 4mg/2ml inj IV PRN (18:57)
[2019-03-05 19:00] VITALS: BP 133/81
[2019-03-05] MEDS: HYDROcodone/acetaminophen 10/325mg tab PO PRN (20:22)
[2019-03-05] MEDS: mirtazapine 15mg tablet PO SCH (20:28)
[2019-03-06] VITALS: BP 125/71
[2019-03-06] MEDS: LORazepam 2 mg/ml vial IV PRN ×3 (02:07→21:36)
--- NOTE | 2019-03-06 04:15 | NUR ---
Bladder scanned as patient has not voided since around 8pm. Scanner revealed 208ml. Patient was also bladder scanned earlier at 1am with only 98cc in ladder at this time. Have been trying to encourage patient to drink more when awake, but patient will only take a few sips at a time, despite juices being offered.
--- NOTE | 2019-03-06 06:25 | NUR ---
Patient in room [facility]. I have received report from KAILASH Pagan and had the opportunity to ask questions and assume patient care.
[2019-03-06 06:30] VITALS: BP 125/67
--- NOTE | 2019-03-06 06:30 | NUR ---
Patient in room [facility]. I have received report from Kristyn LINDER and had the opportunity to ask questions and assume patient care.
[2019-03-06] MEDS: K and/or MAG REPLACEMENT MC SCH (06:49)
[2019-03-06] MEDS: heparin, porcine 5000 units/ml vial SQ SCH ×2 (08:40→21:35)
[2019-03-06] MEDS: duloxetine 30mg CAPSULE.DR PO SCH (08:40)
[2019-03-06] MEDS: potassium chloride 10mEq ER tablet PO SCH ×2 (08:40→21:34)
[2019-03-06] MEDS: lactobacillus rhamnosus 10,000 MMU CELLS/CAPSULE PO SCH ×2 (08:40→21:34)
[2019-03-06] MEDS: furosemide 20MG tablet PO SCH ×2 (08:40→21:34)
[2019-03-06] MEDS: docusate sod 100mg capsule PO SCH ×2 (08:40→21:34)
[2019-03-06] MEDS: nystatin 15 GM powder TP SCH ×3 (08:41→21:36)
--- NOTE | 2019-03-06 09:50 | NUR ---
Dr Mauricio notified of pt recently was having a state of staring @ the ceiling w/o blinking X several mins while grunting. Ativan given & w/in a minute pt closed her eyes & fell asleep. Dr Mauricio states to have the psych MD to come see pt again today. [facility] notified & they state Dr Acevedo is not in yet, but they will inform him when he does rounds today.
[2019-03-06 11:00] VITALS: BP 126/78
[2019-03-06] MEDS: dextrose 5%-normal saline 1,000 ML IV SCH (12:22)
--- NOTE | 2019-03-06 18:35 | NUR ---
Problems reprioritized. Patient report given, questions answered & plan of care reviewed with KAILASH Pagan.
--- NOTE | 2019-03-06 18:35 | NUR ---
Patient in room [facility]. I have received report from Autumn LINDER and had the opportunity to ask questions and assume patient care.
[2019-03-06 19:00] VITALS: BP 126/79
[2019-03-06] MEDS: mirtazapine 15mg tablet PO SCH (21:35)
[2019-03-07] VITALS: BP 116/67
[2019-03-07] MEDS: dextrose 5%-normal saline 1,000 ML IV SCH ×2 (04:12→20:32)
[2019-03-07] MEDS: HYDROcodone/acetaminophen 10/325mg tab PO PRN (05:00)
[2019-03-07] MEDS: LORazepam 2 mg/ml vial IV PRN ×4 (05:00→20:46)
--- NOTE | 2019-03-07 06:30 | NUR ---
Patient in room [facility]. I have received report from EVITA LINDER and had the opportunity to ask questions and assume patient care.
--- NOTE | 2019-03-07 06:40 | NUR ---
Reported off to Lv LINDER. Sitter at bedside.
[2019-03-07 07:37] VITALS: BP 110/72
[2019-03-07] MEDS: K and/or MAG REPLACEMENT MC SCH (08:00)
[2019-03-07] MEDS: docusate sod 100mg capsule PO SCH ×2 (09:59→20:33)
[2019-03-07] MEDS: lactobacillus rhamnosus 10,000 MMU CELLS/CAPSULE PO SCH ×2 (09:59→20:33)
[2019-03-07] MEDS: furosemide 20MG tablet PO SCH ×2 (10:00→20:33)
[2019-03-07] MEDS: potassium chloride 10mEq ER tablet PO SCH ×2 (10:00→20:33)
[2019-03-07] MEDS: duloxetine 30mg CAPSULE.DR PO SCH (10:01)
[2019-03-07] MEDS: heparin, porcine 5000 units/ml vial SQ SCH ×2 (10:02→20:34)
[2019-03-07] MEDS: nystatin 15 GM powder TP SCH ×3 (10:02→20:34)
[2019-03-07 11:00] VITALS: BP 114/78
--- NOTE | 2019-03-07 18:30 | NUR ---
Problems reprioritized. Patient report given, questions answered & plan of care reviewed with Rachel LINDER.
[2019-03-07 20:00] VITALS: BP 138/71
[2019-03-07] MEDS: mirtazapine 15mg tablet PO SCH (20:33)
[2019-03-08] VITALS: BP 126/62
[2019-03-08] MEDS: LORazepam 2 mg/ml vial IV PRN ×2 (04:03→08:22)
--- NOTE | 2019-03-08 06:35 | NUR ---
Problems reprioritized. Patient report given, questions answered & plan of care reviewed with Lv RN.
[2019-03-08 07:29] VITALS: BP 134/68
[2019-03-08] MEDS: K and/or MAG REPLACEMENT MC SCH (08:00)
[2019-03-08] MEDS: potassium chloride 10mEq ER tablet PO SCH ×2 (08:20→19:34)
[2019-03-08] MEDS: docusate sod 100mg capsule PO SCH ×2 (08:20→19:34)
[2019-03-08] MEDS: furosemide 20MG tablet PO SCH ×2 (08:20→19:35)
[2019-03-08] MEDS: duloxetine 30mg CAPSULE.DR PO SCH (08:21)
[2019-03-08] MEDS: lactobacillus rhamnosus 10,000 MMU CELLS/CAPSULE PO SCH ×2 (08:21→19:35)
[2019-03-08] MEDS: heparin, porcine 5000 units/ml vial SQ SCH ×2 (08:22→19:34)
[2019-03-08] MEDS: nystatin 15 GM powder TP SCH ×3 (08:27→19:34)
--- NOTE | 2019-03-08 10:41 | NUR ---
Reassessment: Per MD notes cellulitis clinically improving and pt continues with Lasix for lymphedema. PO intake seems to be improving. Pt documented with 0-25% PO intake 03/06 and 50-100% PO intake 03/07, pending PO intake for today. LBM 03/07. Per MD notes pt continues with a sitter with restraints PRN and awaiting SNF placement. Will continue to follow. Recommendations: 1) Continue regular diet 2) ensure pudding TIDWM 3) Wt per rx Addendum: 03/08/19 at [address] Amended: Links added.
[2019-03-08 11:00] VITALS: BP 129/78
--- NOTE | 2019-03-08 15:28 | NUR ---
Pt requested specialty lymphadema wrapping to be applied to legs before discharge d/t her concern the "wrapping" will not be available unless she goes to a facility after discharge. This was discussed w/ Dr. Mauricio and KAILASH Awan. stated there is no medical necessity at this time for wraps, and RN reiterated CM stated no facilities are accepting pt, and current plan is pt will be d/c'g to her private residence w/ [facility] to follow pt. Pt was instructed that wraps will not be applied at this time.
--- NOTE | 2019-03-08 18:57 | NUR ---
Problems reprioritized. Patient report given, questions answered & plan of care reviewed with Sierra LINDER.
[2019-03-08] MEDS: mirtazapine 15mg tablet PO SCH (19:34)
[2019-03-08] MEDS: LORazepam 1 MG tablet PO PRN (19:34)
--- NOTE | 2019-03-09 02:12 | NUR ---
Patient in room [facility]. I have received report from KAILASH Awan and had the opportunity to ask questions and assume patient care. Addendum: 03/09/19 at 0213 by Sierra Flower RN Amended: Links added.
[2019-03-09] MEDS: LORazepam 1 MG tablet PO PRN ×3 (03:04→20:00)
[2019-03-09] MEDS ORDERED: ziprasidone IM 20mg inj **IM only IM ONE (03:30)
--- NOTE | 2019-03-09 06:20 | NUR ---
Patient in room [facility]. I have received report from KAILASH Esquivel and had the opportunity to ask questions and assume patient care.
--- NOTE | 2019-03-09 06:35 | NUR ---
Problems reprioritized. Patient report given, questions answered & plan of care reviewed with KAILASH Santana. Addendum: 03/09/19 at 0635 by Sierra Flower RN Amended: Links added.
[2019-03-09 07:29] VITALS: BP 143/76
[2019-03-09] MEDS: K and/or MAG REPLACEMENT MC SCH (08:00)
[2019-03-09] MEDS: duloxetine 30mg CAPSULE.DR PO SCH (09:33)
[2019-03-09] MEDS: lactobacillus rhamnosus 10,000 MMU CELLS/CAPSULE PO SCH ×2 (09:33→19:59)
[2019-03-09] MEDS: potassium chloride 10mEq ER tablet PO SCH ×2 (09:33→19:59)
[2019-03-09] MEDS: furosemide 20MG tablet PO SCH ×2 (09:34→19:59)
[2019-03-09] MEDS: heparin, porcine 5000 units/ml vial SQ SCH ×2 (09:34→20:00)
[2019-03-09] MEDS: docusate sod 100mg capsule PO SCH ×2 (09:34→19:59)
[2019-03-09] MEDS: nystatin 15 GM powder TP SCH ×3 (09:35→20:00)
[2019-03-09 11:30] VITALS: BP 136/79
--- NOTE | 2019-03-09 13:00 | NUR ---
Patient is becoming very agitated wanting to climb out of bed. She is very difficult to reason with and talks in circles. She is very afraid about what will happen if we can't find a place for her. She said that someone came in to talk to her and told her that she would have to go home if we couldn't find placement for her. The was very upset and was given Ativan to try and help her relax. AKILASH Bocanegra and I tried to reason with her and help her understand that we wouldn't send her home if it wasn't safe for her to go there. I also paged PT to come and work with her because she kept saying that she had to get out of here and wanted to get out of bed.
--- NOTE | 2019-03-09 18:15 | NUR ---
Patient in room [facility]. I have received report from Esther LINDER and had the opportunity to ask questions and assume patient care.
--- NOTE | 2019-03-09 18:25 | NUR ---
Problems reprioritized. Patient report given, questions answered & plan of care reviewed with KAILASH Quevedo.
[2019-03-09 20:00] VITALS: BP 131/71
[2019-03-09] MEDS: mirtazapine 15mg tablet PO SCH (20:00)
[2019-03-10] VITALS: BP 122/74
[2019-03-10] MEDS: LORazepam 1 MG tablet PO PRN ×5 (02:00→23:51)
--- NOTE | 2019-03-10 06:33 | NUR ---
Problems reprioritized. Patient report given, questions answered & plan of care reviewed with Jesi LINDER.
--- NOTE | 2019-03-10 06:46 | NUR ---
Patient in room [facility]. I have received report from Sae LINDER and had the opportunity to ask questions and assume patient care.
[2019-03-10 07:00] VITALS: BP 120/82
[2019-03-10] MEDS: K and/or MAG REPLACEMENT MC SCH (08:00)
[2019-03-10] MEDS: duloxetine 30mg CAPSULE.DR PO SCH (08:39)
[2019-03-10] MEDS: potassium chloride 10mEq ER tablet PO SCH ×2 (08:39→20:03)
[2019-03-10] MEDS: docusate sod 100mg capsule PO SCH ×2 (08:39→20:03)
[2019-03-10] MEDS: lactobacillus rhamnosus 10,000 MMU CELLS/CAPSULE PO SCH ×2 (08:39→20:03)
[2019-03-10] MEDS: furosemide 20MG tablet PO SCH ×2 (08:39→20:03)
[2019-03-10] MEDS: nystatin 15 GM powder TP SCH ×3 (08:40→20:05)
[2019-03-10] MEDS: heparin, porcine 5000 units/ml vial SQ SCH ×2 (08:40→20:04)
[2019-03-10 11:00] VITALS: BP 156/87
--- NOTE | 2019-03-10 18:15 | NUR ---
Patient in room [facility]. I have received report from Jesi LINDER and had the opportunity to ask questions and assume patient care.
--- NOTE | 2019-03-10 18:17 | NUR ---
patient ambulated with PT see note. Able to tolerate sitting in chair. Ativan required x3 for anxiety and mild agitation. Resting in bed with appropriate affecrt at time of report.
--- NOTE | 2019-03-10 18:18 | NUR ---
Problems reprioritized. Patient report given, questions answered & plan of care reviewed with Sae LINDER.
[2019-03-10 20:00] VITALS: BP 130/65
[2019-03-10] MEDS: mirtazapine 15mg tablet PO SCH (20:03)
--- NOTE | 2019-03-10 23:12 | NUR ---
Patient stated that her stomach felt like it was going to "pop" and that she could not pee. Bladder scan showed 535ml. Spoke with Dr. Mauricio and recieved order to straight cath once, and if repeat is necessary to place a alex. Straight cath drained 400ml. Patient says that she no longer feels the need to pee. Will continue to monitor.
[2019-03-11] VITALS: BP 138/81
--- NOTE | 2019-03-11 06:18 | NUR ---
Problems reprioritized. Patient report given, questions answered & plan of care reviewed with Jesi LINDER.
--- NOTE | 2019-03-11 06:23 | NUR ---
Patient in room [facility]. I have received report from Sae LINDER and had the opportunity to ask questions and assume patient care.
[2019-03-11 07:00] VITALS: BP 127/79
[2019-03-11] MEDS: docusate sod 100mg capsule PO SCH ×2 (07:51→21:20)
[2019-03-11] MEDS: potassium chloride 10mEq ER tablet PO SCH ×2 (07:51→21:19)
[2019-03-11] MEDS: duloxetine 30mg CAPSULE.DR PO SCH (07:51)
[2019-03-11] MEDS: furosemide 20MG tablet PO SCH ×2 (07:51→21:20)
[2019-03-11] MEDS: nystatin 15 GM powder TP SCH ×3 (07:51→21:25)
[2019-03-11] MEDS: lactobacillus rhamnosus 10,000 MMU CELLS/CAPSULE PO SCH ×2 (07:51→21:20)
[2019-03-11] MEDS: heparin, porcine 5000 units/ml vial SQ SCH ×2 (07:51→21:21)
[2019-03-11] MEDS: K and/or MAG REPLACEMENT MC SCH (07:52)
[2019-03-11 11:00] VITALS: BP 141/88
[2019-03-11] MEDS: LORazepam 1 MG tablet PO PRN ×2 (11:09→21:20)
--- NOTE | 2019-03-11 12:33 | NUR ---
Reassessment: Chronic bilat lymphedema improved per MD notes. Patient's PO intake fluctuates with overall 50-100% PO intake with Ensure pudding TID likely closely meeting nutrient needs. Unknown LBM per physical assessment, pt receiving routine Colace with MoM PRN. Outpatient tx being arranged per MD notes. Will continue to follow. Recommendations: 1) Continue regular diet 2) ensure pudding TIDWM 3) Routine bowel care; monitor need for additional 4) Wt per rx Addendum: 03/11/19 at [address] Amended: Links added.
[2019-03-11] MEDS: HYDROcodone/acetaminophen 10/325mg tab PO PRN (17:40)
--- NOTE | 2019-03-11 18:15 | NUR ---
patient pleasant today interacting with sister and staff. Ativan given x1 for anxiety. [place] x1 for pain. patient complained of sore bottom. calzime applied to buttocks, and nystatin powder also applied between legs and folds with relief. patient worked with PT see note. Report given to Sae LINDER
--- NOTE | 2019-03-11 18:20 | NUR ---
Patient in room [facility]. I have received report from Jesi LINDER and had the opportunity to ask questions and assume patient care.
[2019-03-11 20:00] VITALS: BP 132/84
[2019-03-11] MEDS: mirtazapine 15mg tablet PO SCH (21:20)
[2019-03-12] VITALS: BP 152/78
--- NOTE | 2019-03-12 06:34 | NUR ---
Problems reprioritized. Patient report given, questions answered & plan of care reviewed with Michelle RN.
--- NOTE | 2019-03-12 06:34 | NUR ---
Patient in room [facility]. I have received report from KAILASH Quevedo and had the opportunity to ask questions and assume patient care.
[2019-03-12 07:00] VITALS: BP 120/60
[2019-03-12] MEDS: K and/or MAG REPLACEMENT MC SCH (08:00)
[2019-03-12] MEDS: duloxetine 30mg CAPSULE.DR PO SCH (08:32)
[2019-03-12] MEDS: potassium chloride 10mEq ER tablet PO SCH ×2 (08:32→21:42)
[2019-03-12] MEDS: docusate sod 100mg capsule PO SCH ×2 (08:32→21:42)
[2019-03-12] MEDS: lactobacillus rhamnosus 10,000 MMU CELLS/CAPSULE PO SCH ×2 (08:32→21:42)
[2019-03-12] MEDS: furosemide 20MG tablet PO SCH ×2 (08:32→21:42)
[2019-03-12] MEDS: heparin, porcine 5000 units/ml vial SQ SCH ×2 (08:33→21:42)
[2019-03-12] MEDS: nystatin 15 GM powder TP SCH ×3 (08:33→21:43)
[2019-03-12] MEDS: LORazepam 1 MG tablet PO PRN ×3 (08:44→23:05)
[2019-03-12 11:30] VITALS: BP 125/83
--- NOTE | 2019-03-12 18:20 | NUR ---
Patient in room [facility]. I have received report from Janelle LINDER and had the opportunity to ask questions and assume patient care. Addendum: 03/13/19 at 0035 by Latasha Patton RN Nurse was Michelle LINDER NOT Janelle Linder
--- NOTE | 2019-03-12 18:49 | NUR ---
Problems reprioritized. Patient report given, questions answered & plan of care reviewed with KAILASH Pagan.
[2019-03-12 19:00] VITALS: BP 133/87
[2019-03-12] MEDS: mirtazapine 15mg tablet PO SCH (21:43)
--- NOTE | 2019-03-13 00:16 | NUR ---
Patient had received 1x dose of ativan at 2305 for agitation and trying to climb out of bed. It appeared to help for a while but then patient awoke crying and trying to get OOb again. Unable to get patient to relax and settle. Called MD and got an order for 1 time dose of 10mg geodon IM, and soft wrist restraints as patient trying to bite her SL tubing and pull out her F/C. Geodon given IM to L thigh,patient tolerated well. Charge nurse in room talking to patient using soothing talk. Patient appears to be calming down.
--- NOTE | 2019-03-13 06:45 | NUR ---
Problems reprioritized. Patient report given, questions answered & plan of care reviewed with Sindy LINDER.
[2019-03-13 07:00] VITALS: BP 159/89
[2019-03-13] MEDS: K and/or MAG REPLACEMENT MC SCH (08:00)
--- NOTE | 2019-03-13 08:03 | NUR ---
PAGER ID: [phone] MESSAGE: [phone] Angeline Mathur Can we have order to DC restraints. Sindy [id number]
[2019-03-13] MEDS: furosemide 20MG tablet PO SCH ×2 (08:18→20:07)
[2019-03-13] MEDS: HYDROcodone/acetaminophen 10/325mg tab PO PRN (08:18)
[2019-03-13] MEDS: docusate sod 100mg capsule PO SCH ×2 (08:18→20:06)
[2019-03-13] MEDS: potassium chloride 10mEq ER tablet PO SCH ×2 (08:18→20:06)
[2019-03-13] MEDS: lactobacillus rhamnosus 10,000 MMU CELLS/CAPSULE PO SCH ×2 (08:18→20:06)
[2019-03-13] MEDS: duloxetine 30mg CAPSULE.DR PO SCH (08:19)
[2019-03-13] MEDS: nystatin 15 GM powder TP SCH ×3 (08:19→20:08)
[2019-03-13] MEDS: heparin, porcine 5000 units/ml vial SQ SCH ×2 (08:19→20:08)
--- NOTE | 2019-03-13 08:47 | NUR ---
Pt anxious and trying to stand up alone. Ativan administered per order. MD notified.
[2019-03-13] MEDS: LORazepam 1 MG tablet PO PRN (08:52)
[2019-03-13 11:16] VITALS: BP 140/75
[2019-03-13] MEDS ORDERED: normal saline 1000ml 1,000 ML IVB ONE (16:58)
--- NOTE | 2019-03-13 17:07 | NUR ---
Verified intake with PLIER WORKER - 120 intake. Addendum: 03/13/19 at 1708 by Sindy Melara RN Amended: Links added.
--- NOTE | 2019-03-13 17:10 | NUR ---
Pt. only had 200 out in [place]. made aware. Flushed catheter. ordered bolus NS. See new orders.
--- NOTE | 2019-03-13 18:30 | NUR ---
Patient in room [facility]. I have received report from Sindy LINDER and had the opportunity to ask questions and assume patient care.
[2019-03-13] MEDS ORDERED: ziprasidone IM 20mg inj **IM only IM ONE ×3 (18:45)
--- NOTE | 2019-03-13 18:51 | NUR ---
while giving report to Latasha LINDER patient start to climb out of bed, hit her head. when wrist restraints reapplied she started to try to self harm on the side of the bed, and managed to break free of her soft restraints. notified, see new orders.
--- NOTE | 2019-03-13 19:00 | NUR ---
Patient received 1 time dose of geodon, and sitter in room helping to calmer her down. Patient would not allow for vs to be taken at this time.
[2019-03-13] MEDS: mirtazapine 15mg tablet PO SCH (20:08)
[2019-03-14 05:00] VITALS: BP 138/74
--- NOTE | 2019-03-14 06:36 | NUR ---
Patient in room [facility]. I have received report from Latasha LINDER and had the opportunity to ask questions and assume patient care.
[2019-03-14 07:00] VITALS: BP 146/84
[2019-03-14] MEDS: K and/or MAG REPLACEMENT MC SCH (08:00)
[2019-03-14] MEDS ORDERED: QUEtiapine 25mg tablet PO SCH (08:00)
[2019-03-14] MEDS: LORazepam 1 MG tablet PO PRN ×4 (08:44→22:58)
[2019-03-14] MEDS: furosemide 20MG tablet PO SCH ×2 (08:45→19:01)
[2019-03-14] MEDS: docusate sod 100mg capsule PO SCH ×2 (08:45→19:06)
[2019-03-14] MEDS: potassium chloride 10mEq ER tablet PO SCH ×2 (08:45→19:01)
[2019-03-14] MEDS: lactobacillus rhamnosus 10,000 MMU CELLS/CAPSULE PO SCH ×2 (08:45→19:01)
[2019-03-14] MEDS: duloxetine 30mg CAPSULE.DR PO SCH (08:46)
[2019-03-14] MEDS: heparin, porcine 5000 units/ml vial SQ SCH ×2 (08:47→19:02)
[2019-03-14] MEDS: nystatin 15 GM powder TP SCH ×3 (08:47→19:02)
[2019-03-14 11:00] VITALS: BP 135/88
--- NOTE | 2019-03-14 13:35 | NUR ---
Reassessment: Pt with fluctuating PO intake averaging 75% then 25-50% with some refusals. Fluctuations in PO intake likely r/t mentation. Pt documented with intermittent cooperation with increased agitation; pt with a sitter and restraints PRN. Pt receiving Ensure Pudding TID to optimize PO intake. [facility] 03/13. Will continue to follow closely and obtain food preferences to optimize PO intake once appropriate. Recommendations: 1) Continue regular diet 2) ensure pudding TIDWM 3) Routine bowel care; monitor need for additional 4) Encourage PO intake 5) Wt per rx Addendum: 03/14/19 at [address] Amended: Links added.
[2019-03-14] MEDS: QUEtiapine 25mg tablet PO SCH (17:00)
--- NOTE | 2019-03-14 18:40 | NUR ---
Problems reprioritized. Patient report given, questions answered & plan of care reviewed with [cayetano land].
[2019-03-14] MEDS: mirtazapine 15mg tablet PO SCH (19:01)
[2019-03-14 20:00] VITALS: BP 121/71
[2019-03-15] MEDS: LORazepam 1 MG tablet PO PRN ×3 (04:19→21:15)
--- NOTE | 2019-03-15 06:40 | NUR ---
Patient in room [facility]. I have received report from Sudha LINDER and had the opportunity to ask questions and assume patient care.
--- NOTE | 2019-03-15 06:42 | NUR ---
Problems reprioritized. Patient report given, questions answered & plan of care reviewed with KAILASH Fulton.
[2019-03-15] MEDS: docusate sod 100mg capsule PO SCH ×2 (07:12→21:15)
[2019-03-15] MEDS: lactobacillus rhamnosus 10,000 MMU CELLS/CAPSULE PO SCH ×2 (07:12→21:15)
[2019-03-15] MEDS: QUEtiapine 25mg tablet PO SCH ×2 (07:12→17:00)
[2019-03-15] MEDS: heparin, porcine 5000 units/ml vial SQ SCH ×2 (07:12→21:16)
[2019-03-15] MEDS: furosemide 20MG tablet PO SCH ×2 (07:13→21:15)
[2019-03-15] MEDS: potassium chloride 10mEq ER tablet PO SCH ×2 (07:13→21:15)
[2019-03-15] MEDS: duloxetine 30mg CAPSULE.DR PO SCH (07:16)
[2019-03-15] MEDS: nystatin 15 GM powder TP SCH ×3 (07:28→21:19)
[2019-03-15] MEDS: K and/or MAG REPLACEMENT MC SCH (07:40)
--- NOTE | 2019-03-15 07:57 | NUR ---
Pt refused to allow us to do her vitals. She is upset because her roommate in bed B is too noisy and she could not sleep all night.
[2019-03-15] MEDS: LORazepam 2 mg/ml vial IV PRN (08:52)
--- NOTE | 2019-03-15 12:56 | NUR ---
Pt refused vitals, asked at 0800, 0900, 1000, 1100, 1200. Pt refusing to get vitals done. She is upset and tired from no sleep. sitter on bedside.
[2019-03-15] MEDS ORDERED: ziprasidone IM 20mg inj **IM only IM ONE (16:00)
--- NOTE | 2019-03-15 18:12 | NUR ---
pt's urine output was very low today, x1 void and 200ml all day. Dr Marcell Maciel. notified while his visit with the pt and he educated her on the risks of dehydration and not drinking enough fluids. Been encouraging pt to drink fluids but pt has refused fluids other than 2 juice boxes and two sips of tea.
--- NOTE | 2019-03-15 18:16 | NUR ---
Problems reprioritized. Patient report given, questions answered & plan of care reviewed with Sudha LINDER.
[2019-03-15 20:06] VITALS: BP 116/59
[2019-03-15] MEDS: mirtazapine 15mg tablet PO SCH (21:15)
[2019-03-15] MEDS: ondansetron/PF 4mg/2ml inj IV PRN (22:08)
[2019-03-16] VITALS: BP 116/71
--- NOTE | 2019-03-16 06:38 | NUR ---
Patient in room [facility]. I have received report from Sudha Rutherford RN and had the opportunity to ask questions and assume patient care.
--- NOTE | 2019-03-16 06:38 | NUR ---
Problems reprioritized. Patient report given, questions answered & plan of care reviewed with KAILASH Martinez.
[2019-03-16] MEDS: LORazepam 2 mg/ml vial IV PRN (07:53)
[2019-03-16 08:00] VITALS: BP 116/61
[2019-03-16] MEDS: K and/or MAG REPLACEMENT MC SCH (08:00)
[2019-03-16] MEDS: QUEtiapine 25mg tablet PO SCH ×2 (08:00→17:00)
[2019-03-16] MEDS: furosemide 20MG tablet PO SCH ×2 (09:15→20:27)
[2019-03-16] MEDS: docusate sod 100mg capsule PO SCH ×2 (09:15→20:28)
[2019-03-16] MEDS: potassium chloride 10mEq ER tablet PO SCH ×2 (09:15→20:28)
[2019-03-16] MEDS: lactobacillus rhamnosus 10,000 MMU CELLS/CAPSULE PO SCH ×2 (09:15→20:28)
[2019-03-16] MEDS: duloxetine 30mg CAPSULE.DR PO SCH (09:15)
[2019-03-16] MEDS: nystatin 15 GM powder TP SCH ×3 (09:16→20:53)
[2019-03-16] MEDS: heparin, porcine 5000 units/ml vial SQ SCH ×2 (09:17→20:28)
--- NOTE | 2019-03-16 09:30 | NUR ---
Patient taking wound dressing off her RLE and scratching her leg and scratching at her back, stating it itches. Pt resistive to care and not listening to sitter or nursing staff, but continuing to try and harm herself by hitting and scratching. Patient refusing medication for itching. Charge nurse Kathi in to speak to patient. Dr. Maciel notified. Orders received for IM Tamiko to give. Patient refuses Geodon states "you are not going to give me that shot!" Educated patient on necessity of being safe for/to herself. Dr. Faith now at bedside. Will continue to monitor.
[2019-03-16] MEDS ORDERED: hydrOXYzine 10 MG tablet PO PRN (09:55)
[2019-03-16] MEDS ORDERED: ziprasidone IM 20mg inj **IM only IM ONE ×2 (09:55→18:05)
[2019-03-16 12:00] VITALS: BP 123/71
[2019-03-16] MEDS: LORazepam 1 MG tablet PO PRN (17:21)
--- NOTE | 2019-03-16 17:55 | NUR ---
Patient suddenly began attempting to climb out of bed, patient then proceeded to start kicking, hitting her head with her hands. Dr. Faith notified that patient in a state of psychotic crisis. Vitals taken, O2 saturation 97%. Orders received to place pt back on soft limb restraints and orders received to give Geodon 10 mg IM now. Geodon given. Psychiatrist, Dr. Childs, also now at bedside to evaluate patient. Sitter at bedside. Will continue to monitor.
[2019-03-16 18:00] VITALS: BP 129/64
--- NOTE | 2019-03-16 18:59 | NUR ---
Patient in room [facility]. I have received report from KAILASH Martinez and had the opportunity to ask questions and assume patient care. Addendum: 03/16/19 at 1859 by Joan Hogan RN Amended: Links added.
--- NOTE | 2019-03-16 19:01 | NUR ---
Problems reprioritized. Patient report given, questions answered & plan of care reviewed with Sudha Trujillo RN.
[2019-03-16] MEDS: mirtazapine 15mg tablet PO SCH (20:27)
[2019-03-16] MEDS: risperiDONE 0.5mg tablet PO SCH (20:36)
[2019-03-17] VITALS: BP 110/56
--- NOTE | 2019-03-17 06:38 | NUR ---
Problems reprioritized. Patient report given, questions answered & plan of care reviewed with KAILASH Martinez.
--- NOTE | 2019-03-17 06:40 | NUR ---
Patient in room [facility]. I have received report from Sudha Trujillo RN and had the opportunity to ask questions and assume patient care.
[2019-03-17 07:30] VITALS: BP 100/70
[2019-03-17] MEDS: K and/or MAG REPLACEMENT MC SCH (08:00)
[2019-03-17] MEDS: furosemide 20MG tablet PO SCH ×2 (08:32→20:42)
[2019-03-17] MEDS: lactobacillus rhamnosus 10,000 MMU CELLS/CAPSULE PO SCH ×2 (08:32→20:41)
[2019-03-17] MEDS: potassium chloride 10mEq ER tablet PO SCH ×2 (08:32→20:42)
[2019-03-17] MEDS: nystatin 15 GM powder TP SCH ×3 (08:32→20:43)
[2019-03-17] MEDS: docusate sod 100mg capsule PO SCH ×2 (08:32→20:00)
[2019-03-17] MEDS: duloxetine 30mg CAPSULE.DR PO SCH (08:32)
[2019-03-17] MEDS: risperiDONE 0.5mg tablet PO SCH ×2 (08:32→20:42)
[2019-03-17] MEDS: heparin, porcine 5000 units/ml vial SQ SCH ×2 (08:40→20:43)
--- NOTE | 2019-03-17 10:33 | NUR ---
Reassessment: Pt continues with fluctuating PO intake with 100% 03/14, 0% and 100% 03/15, and 0-50% 03/16; pending documented PO intake for today. Pt now receiving routine Remeron which may increase appetite. Likely fluctuations in PO intake are r/t fluctuations in mentation as pt is increasingly agitated however medically stable per MD notes, psychiatry following. Per MD notes pt wont drink water and only wants soda and juice. Pt receiving Ensure pudding TID, d/w dietary to send vanilla shake with lunch to optimize PO intake. LBM 03/15. Will continue to follow closely and make recommendations as appropriate. Recommendations: 1) Continue regular diet 2) Vanilla ensure pudding TIDWM 3) Routine bowel care; monitor need for additional 4) Encourage PO intake 5) Wt per rx Addendum: 03/17/19 at [address] Amended: Links added.
--- NOTE | 2019-03-17 11:30 | NUR ---
Upon Physical therapy entering room to ambulate with patient, patient crying and refused. Physical therapy had patient standing, sat patient back down into bed, and left room. RN in room with patient, patient's legs hanging off bed. Upon physical therapy leaving the room, patient immediately sat up and started to leave bed and slide down. RN assisted pt with knees to floor. Patient on floor when physical therapy, ED technicians, RN and sitter all helped patient into EZ lift sling and lifted patient back to bed. Patient was not injured. Denies pain. MD aware of the situation.
--- NOTE | 2019-03-17 12:30 | NUR ---
Patient refusing afternoon vitals. states to leave her the alone.
[2019-03-17 18:00] VITALS: BP 143/82
--- NOTE | 2019-03-17 18:25 | NUR ---
Patient in room [facility]. I have received report from KAILASH Martinez and had the opportunity to ask questions and assume patient care. Addendum: 03/17/19 at 1826 by Joan Hogan RN Amended: Links added.
--- NOTE | 2019-03-17 19:31 | NUR ---
pt has no IV access and ok per MD Addendum: 03/17/19 at 1931 by Joan Hogan RN Amended: Links added.
[2019-03-17] MEDS: mirtazapine 15mg tablet PO SCH (20:41)
--- NOTE | 2019-03-18 06:50 | NUR ---
Problems reprioritized. Patient report given, questions answered & plan of care reviewed with KAILASH Nye. Addendum: 03/18/19 at 0651 by Joan Hogan RN Amended: Links added.
--- NOTE | 2019-03-18 06:58 | NUR ---
Patient in room [facility]. I have received report from Sudha Trujillo RN and had the opportunity to ask questions and assume patient care.
[2019-03-18] MEDS: docusate sod 100mg capsule PO SCH ×2 (08:00→20:56)
[2019-03-18] MEDS: K and/or MAG REPLACEMENT MC SCH (08:00)
[2019-03-18 09:20] VITALS: BP 141/72
[2019-03-18] MEDS: risperiDONE 0.5mg tablet PO SCH ×2 (09:55→20:56)
[2019-03-18] MEDS: nystatin 15 GM powder TP SCH ×3 (09:55→20:57)
[2019-03-18] MEDS: lactobacillus rhamnosus 10,000 MMU CELLS/CAPSULE PO SCH ×2 (09:55→20:56)
[2019-03-18] MEDS: potassium chloride 10mEq ER tablet PO SCH ×2 (09:56→20:56)
[2019-03-18] MEDS: duloxetine 30mg CAPSULE.DR PO SCH (09:56)
[2019-03-18] MEDS: furosemide 20MG tablet PO SCH ×2 (09:56→20:56)
[2019-03-18] MEDS: heparin, porcine 5000 units/ml vial SQ SCH ×2 (10:00→20:57)
[2019-03-18 11:00] VITALS: BP 122/78
[2019-03-18 12:00] LABS: ALANINE AMINOTRANSFERASE 25 U/L (12-78); ALBUMIN/GLOBULIN RATIO 0.7 (1.1-1.5); ALKALINE PHOSPHATASE 63 IU/L (46-116); ANION GAP 9 (8-16); ASPARTATE AMINO TRANSFERASE 18 U/L (10-37); BILIRUBIN,TOTAL 0.5 MG/DL (0.1-1.0); BLOOD UREA NITROGEN 11 MG/DL (7-18); BUN/CREATININE RATIO 15.5 (6.6-38.0); CALCIUM 9.1 MG/DL (8.5-10.1); CHLORIDE 104 MMOL/L (99-107); CREATININE 0.71 MG/DL (0.40-0.90); GLUCOSE 148 MG/DL (70-104); MAGNESIUM 1.8 MG/DL (1.5-2.4); PHOSPHORUS 3.7 MG/DL (2.3-4.5); SODIUM 141 MMOL/L (135-145); TOTAL CARBON DIOXIDE 28.4 MMOL/L (24-32); TOTAL PROTEIN 7.1 G/DL (6.4-8.2); eGFR 87 ML/MIN
[2019-03-18 12:32] LABS: BASOPHILS % (AUTO) 0.8 % (0-1); EOSINOPHILS # (AUTO) 0.1 X10'3 (0-0.9); EOSINOPHILS % (AUTO) 2.1 % (0-6); HEMATOCRIT 45.3 % (35.0-45.0); HEMOGLOBIN 15.2 g/dl (12.0-16.0); LYMPHOCYTES # (AUTO) 1.6 X10'3 (1.1-4.8); LYMPHOCYTES % (AUTO) 25.2 % (21-51); MEAN CORPUSCULAR HEMOGLOBIN 29.7 PG (27.0-31.0); MEAN CORPUSCULAR HGB CONC 33.5 g/dL (33.0-36.5); MEAN CORPUSCULAR VOLUME 88.7 FL (78-98); MEAN PLATELET VOLUME 9.9 FL (7.4-10.4); MONOCYTES # (AUTO) 0.5 X10'3 (0-0.9); MONOCYTES % (AUTO) 7.3 % (2-12); NEUTROPHILS # (AUTO) 4.2 X10'3 (1.8-7.7); NEUTROPHILS % (AUTO) 64.6 % (42-75); PLATELET COUNT 169 X10'3 (140-440); RED BLOOD COUNT 5.11 X10'6 (4.20-5.60); RED CELL DISTRIBUTION WIDTH 13.9 % (11.5-14.5); WHITE BLOOD COUNT 6.5 X10'3 (4.5-11.0)
[2019-03-18] MEDS: LORazepam 1 MG tablet PO PRN ×2 (17:25→21:50)
--- NOTE | 2019-03-18 18:41 | NUR ---
Problems reprioritized. Patient report given, questions answered & plan of care reviewed with Pat RN.
[2019-03-18 19:30] VITALS: BP 125/77
[2019-03-18] MEDS: mirtazapine 15mg tablet PO SCH (20:57)
[2019-03-19] VITALS: BP 117/70
--- NOTE | 2019-03-19 06:17 | NUR ---
Patient in room [facility]. I have received report from Pat RN and had the opportunity to ask questions and assume patient care.
[2019-03-19 07:00] VITALS: BP 151/84
[2019-03-19] MEDS: K and/or MAG REPLACEMENT MC SCH (08:00)
[2019-03-19] MEDS: lactobacillus rhamnosus 10,000 MMU CELLS/CAPSULE PO SCH ×2 (09:24→20:16)
[2019-03-19] MEDS: duloxetine 30mg CAPSULE.DR PO SCH (09:24)
[2019-03-19] MEDS: furosemide 20MG tablet PO SCH ×2 (09:24→20:16)
[2019-03-19] MEDS: potassium chloride 10mEq ER tablet PO SCH ×2 (09:24→20:16)
[2019-03-19] MEDS: risperiDONE 0.5mg tablet PO SCH ×2 (09:24→20:17)
[2019-03-19] MEDS: docusate sod 100mg capsule PO SCH ×2 (09:24→20:16)
[2019-03-19] MEDS: nystatin 15 GM powder TP SCH ×3 (09:25→21:33)
[2019-03-19] MEDS: heparin, porcine 5000 units/ml vial SQ SCH ×2 (09:26→20:16)
[2019-03-19] MEDS: LORazepam 1 MG tablet PO PRN ×2 (09:30→20:16)
--- NOTE | 2019-03-19 09:41 | NUR ---
Patient started getting anxious and wanted to get up from bed. Ativan PO given as indicated. Bed alarm on. Sitter at bedside.
[2019-03-19 11:00] VITALS: BP 131/84
--- NOTE | 2019-03-19 18:24 | NUR ---
Patient in room [facility]. I have received report from Popeye LINDER and had the opportunity to ask questions and assume patient care.
--- NOTE | 2019-03-19 18:54 | NUR ---
Problems reprioritized. Patient report given, questions answered & plan of care reviewed with Radha LINDER.
[2019-03-19 20:00] VITALS: BP 157/72
[2019-03-19] MEDS: mirtazapine 15mg tablet PO SCH (20:17)
[2019-03-20] VITALS: BP 133/79
[2019-03-20] MEDS: LORazepam 1 MG tablet PO PRN ×3 (03:59→21:56)
--- NOTE | 2019-03-20 06:20 | NUR ---
Problems reprioritized. Patient report given, questions answered & plan of care reviewed with Lv RN.
[2019-03-20 07:33] VITALS: BP 152/84
[2019-03-20] MEDS: K and/or MAG REPLACEMENT MC SCH (08:46)
[2019-03-20] MEDS: furosemide 20MG tablet PO SCH ×2 (10:22→21:28)
[2019-03-20] MEDS: duloxetine 30mg CAPSULE.DR PO SCH (10:23)
[2019-03-20] MEDS: potassium chloride 10mEq ER tablet PO SCH ×2 (10:23→21:29)
[2019-03-20] MEDS: docusate sod 100mg capsule PO SCH ×2 (10:23→21:28)
[2019-03-20] MEDS: heparin, porcine 5000 units/ml vial SQ SCH ×2 (10:24→21:33)
[2019-03-20] MEDS: lactobacillus rhamnosus 10,000 MMU CELLS/CAPSULE PO SCH ×2 (10:24→21:29)
[2019-03-20] MEDS: risperiDONE 0.5mg tablet PO SCH ×2 (10:27→21:29)
[2019-03-20] MEDS: nystatin 15 GM powder TP SCH ×3 (10:30→21:34)
[2019-03-20] MEDS: diphenhydrAMINE 25mg capsule PO PRN (14:27)
--- NOTE | 2019-03-20 15:44 | NUR ---
Reassessment: Pt PO 75-100% avg regular meals meeting needs. LBM 03/18. No nutrition concerns at this time. Recommendations: 1) Continue regular diet 2) Vanilla ensure pudding TIDWM; vanilla shake at lunch 3) Routine bowel care 4) Encourage PO intake 5) Wt per rx Addendum: 03/20/19 at [address] Amended: Links added.
--- NOTE | 2019-03-20 16:48 | NUR ---
Patient did have one of her two 7.5oz cans.
[2019-03-20 20:00] VITALS: BP 154/86
[2019-03-20] MEDS: mirtazapine 15mg tablet PO SCH (21:29)
[2019-03-21] VITALS: BP 119/86
--- NOTE | 2019-03-21 06:30 | NUR ---
Patient in room [facility]. I have received report from Radha LINDER and had the opportunity to ask questions and assume patient care.
--- NOTE | 2019-03-21 06:37 | NUR ---
Problems reprioritized. Patient report given, questions answered & plan of care reviewed with Lv RN.
[2019-03-21 08:00] VITALS: BP 135/82
[2019-03-21] MEDS: K and/or MAG REPLACEMENT MC SCH (08:00)
[2019-03-21] MEDS: furosemide 20MG tablet PO SCH ×2 (09:33→19:25)
[2019-03-21] MEDS: potassium chloride 10mEq ER tablet PO SCH ×2 (09:34→19:25)
[2019-03-21] MEDS: duloxetine 30mg CAPSULE.DR PO SCH (09:34)
[2019-03-21] MEDS: docusate sod 100mg capsule PO SCH ×2 (09:34→19:25)
[2019-03-21] MEDS: risperiDONE 0.5mg tablet PO SCH ×2 (09:35→19:25)
[2019-03-21] MEDS: nystatin 15 GM powder TP SCH ×3 (09:36→19:33)
[2019-03-21] MEDS: lactobacillus rhamnosus 10,000 MMU CELLS/CAPSULE PO SCH ×2 (09:37→19:25)
[2019-03-21] MEDS: heparin, porcine 5000 units/ml vial SQ SCH ×2 (09:38→19:25)
[2019-03-21 11:00] VITALS: BP 151/76
--- NOTE | 2019-03-21 18:30 | NUR ---
Problems reprioritized. Patient report given, questions answered & plan of care reviewed with Radha LINDER.
[2019-03-21 19:00] VITALS: BP 127/93
--- NOTE | 2019-03-21 19:09 | NUR ---
Patient in room [facility]. I have received report from Lv LINDER and had the opportunity to ask questions and assume patient care.
[2019-03-21] MEDS: mirtazapine 15mg tablet PO SCH (19:25)
[2019-03-21] MEDS: LORazepam 1 MG tablet PO PRN (19:25)
[2019-03-21 20:23] VITALS: BP 127/93
[2019-03-22 00:23] VITALS: BP 121/71
[2019-03-22] MEDS: LORazepam 1 MG tablet PO PRN ×3 (02:40→17:36)
--- NOTE | 2019-03-22 06:06 | NUR ---
Problems reprioritized. Patient report given, questions answered & plan of care reviewed with Danisha LINDER.
[2019-03-22 07:00] VITALS: BP 125/89
[2019-03-22] MEDS: K and/or MAG REPLACEMENT MC SCH (08:00)
[2019-03-22] MEDS: docusate sod 100mg capsule PO SCH ×3 (08:00→23:35)
[2019-03-22] MEDS: nystatin 15 GM powder TP SCH ×3 (08:00→23:36)
[2019-03-22] MEDS: lactobacillus rhamnosus 10,000 MMU CELLS/CAPSULE PO SCH ×3 (09:29→23:35)
[2019-03-22] MEDS: duloxetine 30mg CAPSULE.DR PO SCH (09:29)
[2019-03-22] MEDS: potassium chloride 10mEq ER tablet PO SCH ×3 (09:30→23:35)
[2019-03-22] MEDS: furosemide 20MG tablet PO SCH ×2 (09:30→23:35)
[2019-03-22] MEDS: risperiDONE 0.5mg tablet PO SCH ×3 (09:30→23:35)
[2019-03-22] MEDS: heparin, porcine 5000 units/ml vial SQ SCH ×3 (09:30→23:35)
[2019-03-22 12:00] VITALS: BP 146/94
[2019-03-22 18:00] VITALS: BP 145/77
--- NOTE | 2019-03-22 20:15 | NUR ---
pt. very agitated saying "i need to get out of this bed". Unable to reason with pt. Tamiko given IM as ordered prn.
[2019-03-22] MEDS: ziprasidone IM 20mg inj **IM only IM PRN (20:19)
[2019-03-22] MEDS: mirtazapine 15mg tablet PO SCH ×2 (21:00→23:35)
--- NOTE | 2019-03-22 22:29 | NUR ---
Patient in room [facility]. I have received report from KAILASH Raman and had the opportunity to ask questions and assume patient care. Addendum: 03/22/19 at 2234 by Sierra Flower RN Amended: Links added.
--- NOTE | 2019-03-23 06:27 | NUR ---
Problems reprioritized. Patient report given, questions answered & plan of care reviewed with KAILASH Raman. Addendum: 03/23/19 at 0933 by Sierra Flower RN Amended: Links added.
[2019-03-23 08:00] VITALS: BP 160/69
[2019-03-23] MEDS: K and/or MAG REPLACEMENT MC SCH (08:00)
[2019-03-23] MEDS: duloxetine 30mg CAPSULE.DR PO SCH (10:00)
[2019-03-23] MEDS: furosemide 20MG tablet PO SCH ×2 (10:00→20:43)
[2019-03-23] MEDS: lactobacillus rhamnosus 10,000 MMU CELLS/CAPSULE PO SCH ×2 (10:00→20:43)
[2019-03-23] MEDS: potassium chloride 10mEq ER tablet PO SCH ×2 (10:00→20:43)
[2019-03-23] MEDS: risperiDONE 0.5mg tablet PO SCH ×2 (10:00→20:43)
[2019-03-23] MEDS: docusate sod 100mg capsule PO SCH ×2 (10:00→20:43)
[2019-03-23] MEDS: heparin, porcine 5000 units/ml vial SQ SCH ×2 (10:01→20:43)
[2019-03-23] MEDS: nystatin 15 GM powder TP SCH ×3 (10:01→20:44)
[2019-03-23 11:00] VITALS: BP 152/78
[2019-03-23] MEDS: LORazepam 1 MG tablet PO PRN ×2 (16:53→20:43)
[2019-03-23 18:00] VITALS: BP 146/92
[2019-03-23] MEDS: mirtazapine 15mg tablet PO SCH (20:43)
--- NOTE | 2019-03-23 23:12 | NUR ---
Patient in room [facility]. I have received report from KAILASH Raman and had the opportunity to ask questions and assume patient care. Addendum: 03/23/19 at 2315 by Sierra Flower RN Amended: Links added.
[2019-03-24] MEDS: ondansetron 4mg rapidly disintigrating tab PO PRN (00:04)
[2019-03-24 06:00] VITALS: BP 123/82
--- NOTE | 2019-03-24 06:30 | NUR ---
Patient in room [facility]. I have received report from KAILASH Esquivel and had the opportunity to ask questions and assume patient care.
--- NOTE | 2019-03-24 06:33 | NUR ---
Problems reprioritized. Patient report given, questions answered & plan of care reviewed with [KAILASH Santana]. Addendum: 03/24/19 at 0634 by Sierra Flower RN Amended: Links added.
[2019-03-24] MEDS: K and/or MAG REPLACEMENT MC SCH (08:00)
[2019-03-24] MEDS: docusate sod 100mg capsule PO SCH ×2 (09:33→20:04)
[2019-03-24] MEDS: lactobacillus rhamnosus 10,000 MMU CELLS/CAPSULE PO SCH ×2 (09:33→20:04)
[2019-03-24] MEDS: duloxetine 30mg CAPSULE.DR PO SCH (09:34)
[2019-03-24] MEDS: furosemide 20MG tablet PO SCH ×2 (09:34→20:03)
[2019-03-24] MEDS: potassium chloride 10mEq ER tablet PO SCH ×2 (09:34→20:04)
[2019-03-24] MEDS: risperiDONE 0.5mg tablet PO SCH ×2 (09:35→20:04)
[2019-03-24] MEDS: nystatin 15 GM powder TP SCH ×3 (09:35→20:04)
[2019-03-24] MEDS: heparin, porcine 5000 units/ml vial SQ SCH ×2 (09:36→20:04)
[2019-03-24 11:00] VITALS: BP 131/87
--- NOTE | 2019-03-24 11:28 | NUR ---
Reassessment: PO intake fluctuates overall 75-100% with some 25-50%. Cellulitis discontinued per physical assessment. LBM 03/23. CM working on placement per MD notes. No nutrition diagnosis at this time. Will continue to follow. Recommendations: 1) Continue regular diet 2) Vanilla ensure pudding TIDWM; vanilla shake at lunch 3) Routine bowel care 4) Encourage PO intake 5) Wt per rx Addendum: 03/24/19 at [address] Amended: Links added.
[2019-03-24] MEDS: LORazepam 1 MG tablet PO PRN ×2 (14:51→20:03)
[2019-03-24] MEDS: fluconazole 100mg tablet PO SCH (16:10)
--- NOTE | 2019-03-24 18:25 | NUR ---
Problems reprioritized. Patient report given, questions answered & plan of care reviewed with KAILASH Rivera.
--- NOTE | 2019-03-24 18:43 | NUR ---
Received report from Esther LINDER pt is awake eating dinner on RA in no apparent distress.
[2019-03-24 19:00] VITALS: BP 135/73
[2019-03-24] MEDS: mirtazapine 15mg tablet PO SCH (20:03)
--- NOTE | 2019-03-24 21:35 | NUR ---
pt trying to get out of bed, becoming inconsolable, have given PO ativan 95mins ago, will try Tamiko IM
[2019-03-24] MEDS: ziprasidone IM 20mg inj **IM only IM PRN (21:39)
[2019-03-25 06:30] VITALS: BP 146/83
--- NOTE | 2019-03-25 06:37 | NUR ---
Problems reprioritized. Patient report given, questions answered & plan of care reviewed with Kristyn RN.
--- NOTE | 2019-03-25 06:45 | NUR ---
Patient in room [facility]. I have received report from KAILASH Rivera and had the opportunity to ask questions and assume patient care.
[2019-03-25 08:15] LABS: BASOPHILS # (AUTO) 0.1 X10'3 (0-0.2); EOSINOPHILS # (AUTO) 0.2 X10'3 (0-0.9); EOSINOPHILS % (AUTO) 2.2 % (0-6); HEMATOCRIT 44.8 % (35.0-45.0); HEMOGLOBIN 14.9 g/dl (12.0-16.0); LYMPHOCYTES # (AUTO) 2.1 X10'3 (1.1-4.8); LYMPHOCYTES % (AUTO) 24.8 % (21-51); MEAN CORPUSCULAR HEMOGLOBIN 29.5 PG (27.0-31.0); MEAN CORPUSCULAR HGB CONC 33.2 g/dL (33.0-36.5); MEAN CORPUSCULAR VOLUME 88.9 FL (78-98); MEAN PLATELET VOLUME 10.1 FL (7.4-10.4); MONOCYTES # (AUTO) 0.6 X10'3 (0-0.9); MONOCYTES % (AUTO) 7.4 % (2-12); NEUTROPHILS # (AUTO) 5.4 X10'3 (1.8-7.7); NEUTROPHILS % (AUTO) 64.6 % (42-75); PLATELET COUNT 175 X10'3 (140-440); RED BLOOD COUNT 5.04 X10'6 (4.20-5.60); RED CELL DISTRIBUTION WIDTH 13.7 % (11.5-14.5); WHITE BLOOD COUNT 8.4 X10'3 (4.5-11.0)
[2019-03-25 08:24] LABS: ALBUMIN 2.7 G/DL (3.4-5.0); ALKALINE PHOSPHATASE 72 IU/L (46-116); ANION GAP 5 (8-16); ASPARTATE AMINO TRANSFERASE 12 U/L (10-37); CHLORIDE 103 MMOL/L (99-107); POTASSIUM 4.1 MMOL/L (3.5-5.1); SODIUM 142 MMOL/L (135-145); TOTAL CARBON DIOXIDE 33.8 MMOL/L (24-32)
[2019-03-25 08:32] LABS: ALANINE AMINOTRANSFERASE 27 U/L (12-78); ALBUMIN/GLOBULIN RATIO 0.6 (1.1-1.5); BILIRUBIN,TOTAL 0.5 MG/DL (0.1-1.0); BLOOD UREA NITROGEN 14 MG/DL (7-18); BUN/CREATININE RATIO 22.2 (6.6-38.0); CALCIUM 8.6 MG/DL (8.5-10.1); CREATININE 0.63 MG/DL (0.40-0.90); GLUCOSE 100 MG/DL (70-104); TOTAL PROTEIN 6.9 G/DL (6.4-8.2); eGFR > 90 ML/MIN
[2019-03-25] MEDS: K and/or MAG REPLACEMENT MC SCH (10:14)
[2019-03-25] MEDS: potassium chloride 10mEq ER tablet PO SCH ×2 (10:20→20:30)
[2019-03-25] MEDS: lactobacillus rhamnosus 10,000 MMU CELLS/CAPSULE PO SCH ×2 (10:20→20:30)
[2019-03-25] MEDS: duloxetine 30mg CAPSULE.DR PO SCH (10:20)
[2019-03-25] MEDS: fluconazole 100mg tablet PO SCH (10:20)
[2019-03-25] MEDS: furosemide 20MG tablet PO SCH ×2 (10:20→20:30)
[2019-03-25] MEDS: docusate sod 100mg capsule PO SCH ×2 (10:20→20:30)
[2019-03-25] MEDS: risperiDONE 0.5mg tablet PO SCH ×2 (10:21→20:30)
[2019-03-25] MEDS: nystatin 15 GM powder TP SCH ×3 (10:21→20:31)
[2019-03-25] MEDS: heparin, porcine 5000 units/ml vial SQ SCH ×2 (10:21→20:31)
[2019-03-25 11:30] VITALS: BP 127/71
--- NOTE | 2019-03-25 18:15 | NUR ---
Problems reprioritized. Patient report given, questions answered & plan of care reviewed with KAILASH Rivera.
--- NOTE | 2019-03-25 18:30 | NUR ---
Received report from Kristyn LINDER pt is awake and alert on RA. pt mentioned how happy she was to be able to go outside today. pt also requested to have all 4 rails up on the bed due to fear she would fall out of bed.
[2019-03-25 19:30] VITALS: BP 121/70
[2019-03-25] MEDS: mirtazapine 15mg tablet PO SCH (20:30)
[2019-03-25] MEDS: LORazepam 1 MG tablet PO PRN (21:16)
[2019-03-26 00:36] VITALS: BP 113/73
--- NOTE | 2019-03-26 06:20 | NUR ---
Patient in room [facility]. I have received report from KAILASH Rivera and had the opportunity to ask questions and assume patient care.
[2019-03-26 06:30] VITALS: BP 122/83
--- NOTE | 2019-03-26 06:37 | NUR ---
Problems reprioritized. Patient report given, questions answered & plan of care reviewed with Kristyn RN.
[2019-03-26] MEDS: K and/or MAG REPLACEMENT MC SCH (07:11)
[2019-03-26] MEDS: fluconazole 100mg tablet PO SCH (08:56)
[2019-03-26] MEDS: risperiDONE 0.5mg tablet PO SCH ×3 (08:56→19:45)
[2019-03-26] MEDS: docusate sod 100mg capsule PO SCH ×3 (08:56→19:45)
[2019-03-26] MEDS: potassium chloride 10mEq ER tablet PO SCH ×3 (08:56→19:46)
[2019-03-26] MEDS: furosemide 20MG tablet PO SCH ×3 (08:56→19:45)
[2019-03-26] MEDS: duloxetine 30mg CAPSULE.DR PO SCH (08:56)
[2019-03-26] MEDS: lactobacillus rhamnosus 10,000 MMU CELLS/CAPSULE PO SCH ×3 (08:56→19:45)
[2019-03-26] MEDS: heparin, porcine 5000 units/ml vial SQ SCH ×2 (08:57→19:35)
[2019-03-26] MEDS: nystatin 15 GM powder TP SCH ×3 (08:57→20:47)
[2019-03-26 11:30] VITALS: BP 112/63
[2019-03-26] MEDS: LORazepam 1 MG tablet PO PRN (15:49)
--- NOTE | 2019-03-26 18:15 | NUR ---
Patient in room [facility]. I have received report from Kristyn LINDER and had the opportunity to ask questions and assume patient care.
--- NOTE | 2019-03-26 18:45 | NUR ---
Problems reprioritized. Patient report given, questions answered & plan of care reviewed with KAILASH Pagan.
[2019-03-26 19:00] VITALS: BP 122/71
[2019-03-26] MEDS: mirtazapine 15mg tablet PO SCH (19:53)
[2019-03-26 23:45] VITALS: BP 121/75
--- NOTE | 2019-03-27 04:35 | NUR ---
Patient refused a bed bath this shift Addendum: 03/27/19 at 0435 by Latasha Patton RN Amended: Links added.
[2019-03-27 06:30] VITALS: BP 138/86
--- NOTE | 2019-03-27 06:30 | NUR ---
Problems reprioritized. Patient report given, questions answered & plan of care reviewed with Denies RN.
[2019-03-27 06:34] LABS: BASOPHILS # (AUTO) 0.1 X10'3 (0-0.2); BASOPHILS % (AUTO) 0.7 % (0-1); EOSINOPHILS # (AUTO) 0.2 X10'3 (0-0.9); EOSINOPHILS % (AUTO) 2.3 % (0-6); HEMATOCRIT 44.1 % (35.0-45.0); HEMOGLOBIN 14.9 g/dl (12.0-16.0); LYMPHOCYTES # (AUTO) 2.8 X10'3 (1.1-4.8); MEAN CORPUSCULAR HEMOGLOBIN 29.9 PG (27.0-31.0); MEAN CORPUSCULAR HGB CONC 33.7 g/dL (33.0-36.5); MEAN CORPUSCULAR VOLUME 88.6 FL (78-98); MEAN PLATELET VOLUME 10.1 FL (7.4-10.4); MONOCYTES # (AUTO) 0.6 X10'3 (0-0.9); MONOCYTES % (AUTO) 6.5 % (2-12); NEUTROPHILS % (AUTO) 58.5 % (42-75); PLATELET COUNT 179 X10'3 (140-440); RED BLOOD COUNT 4.98 X10'6 (4.20-5.60); WHITE BLOOD COUNT 8.6 X10'3 (4.5-11.0)
--- NOTE | 2019-03-27 06:35 | NUR ---
Patient in room [facility]. I have received report from KAILASH Pagan and had the opportunity to ask questions and assume patient care.
[2019-03-27 06:55] LABS: ALANINE AMINOTRANSFERASE 27 U/L (12-78); ALBUMIN 2.7 G/DL (3.4-5.0); ALBUMIN/GLOBULIN RATIO 0.6 (1.1-1.5); ALKALINE PHOSPHATASE 73 IU/L (46-116); ANION GAP 8 (8-16); ASPARTATE AMINO TRANSFERASE 15 U/L (10-37); BILIRUBIN,TOTAL 0.5 MG/DL (0.1-1.0); BLOOD UREA NITROGEN 14 MG/DL (7-18); BUN/CREATININE RATIO 19.7 (6.6-38.0); CALCIUM 8.7 MG/DL (8.5-10.1); CHLORIDE 103 MMOL/L (99-107); CREATININE 0.71 MG/DL (0.40-0.90); GLUCOSE 105 MG/DL (70-104); POTASSIUM 4.2 MMOL/L (3.5-5.1); SODIUM 140 MMOL/L (135-145); TOTAL CARBON DIOXIDE 28.8 MMOL/L (24-32); eGFR 87 ML/MIN
[2019-03-27] MEDS: K and/or MAG REPLACEMENT MC SCH (08:00)
[2019-03-27] MEDS: LORazepam 1 MG tablet PO PRN ×2 (09:40→23:55)
[2019-03-27] MEDS: fluconazole 100mg tablet PO SCH (09:45)
[2019-03-27] MEDS: heparin, porcine 5000 units/ml vial SQ SCH ×2 (09:45→21:38)
[2019-03-27] MEDS: duloxetine 30mg CAPSULE.DR PO SCH (09:45)
[2019-03-27] MEDS: nystatin 15 GM powder TP SCH ×3 (10:00→21:38)
[2019-03-27] MEDS ORDERED: bisacodyl 10mg suppository rectal RC PRN (13:27)
--- NOTE | 2019-03-27 18:05 | NUR ---
Problems reprioritized. Patient report given, questions answered & plan of care reviewed with KAILASH Pagan.
--- NOTE | 2019-03-27 18:16 | NUR ---
Patient in room [facility]. I have received report from Kristyn LINDER and had the opportunity to ask questions and assume patient care.
[2019-03-27 20:00] VITALS: BP 126/72
[2019-03-27] MEDS ORDERED: bisacodyl 10mg suppository rectal RC SCH (20:00)
--- NOTE | 2019-03-27 21:27 | NUR ---
Patient is concerned about what is going to happen when she is d/c'd home as she is the only one who basically looks after her mom. Her mom really needs IHSs? . Addendum: 03/27/19 at 2130 by Latasha Patton RN Will request SS consult.
[2019-03-27] MEDS: furosemide 20MG tablet PO SCH (21:36)
[2019-03-27] MEDS: risperiDONE 0.5mg tablet PO SCH (21:36)
[2019-03-27] MEDS: potassium chloride 10mEq ER tablet PO SCH (21:36)
[2019-03-27] MEDS: lactobacillus rhamnosus 10,000 MMU CELLS/CAPSULE PO SCH (21:36)
[2019-03-27] MEDS: docusate sod 100mg capsule PO SCH (21:36)
[2019-03-27] MEDS: mirtazapine 15mg tablet PO SCH (21:37)
--- NOTE | 2019-03-28 06:11 | NUR ---
Problems reprioritized. Patient report given, questions answered & plan of care reviewed with Esther LINDER.
--- NOTE | 2019-03-28 06:48 | NUR ---
Patient in room [facility]. I have received report from KAILASH Pagan and had the opportunity to ask questions and assume patient care.
[2019-03-28 07:30] VITALS: BP 127/65
[2019-03-28] MEDS: K and/or MAG REPLACEMENT MC SCH (08:00)
[2019-03-28] MEDS: lactobacillus rhamnosus 10,000 MMU CELLS/CAPSULE PO SCH ×2 (09:41→20:28)
[2019-03-28] MEDS: duloxetine 30mg CAPSULE.DR PO SCH (09:41)
[2019-03-28] MEDS: docusate sod 100mg capsule PO SCH ×2 (09:41→20:27)
[2019-03-28] MEDS: fluconazole 100mg tablet PO SCH (09:42)
[2019-03-28] MEDS: potassium chloride 10mEq ER tablet PO SCH ×2 (09:42→20:26)
[2019-03-28] MEDS: furosemide 20MG tablet PO SCH ×2 (09:42→20:28)
[2019-03-28] MEDS: risperiDONE 0.5mg tablet PO SCH ×2 (09:43→20:33)
[2019-03-28] MEDS: heparin, porcine 5000 units/ml vial SQ SCH ×2 (09:43→20:29)
[2019-03-28] MEDS: nystatin 15 GM powder TP SCH ×3 (09:44→20:33)
[2019-03-28 11:41] VITALS: BP 107/67
[2019-03-28 18:00] VITALS: BP 131/74
--- NOTE | 2019-03-28 18:25 | NUR ---
Problems reprioritized. Patient report given, questions answered & plan of care reviewed with KAILASH Cagle.
[2019-03-28] MEDS: LORazepam 1 MG tablet PO PRN (19:39)
[2019-03-28] MEDS: mirtazapine 15mg tablet PO SCH (20:26)
--- NOTE | 2019-03-29 06:30 | NUR ---
Patient in room [facility]. I have received report from Gurjit LINDER and had the opportunity to ask questions and assume patient care.
--- NOTE | 2019-03-29 06:32 | NUR ---
Problems reprioritized. Patient report given, questions answered & plan of care reviewed with KAILASH Ontiveros.
[2019-03-29 07:10] VITALS: BP 118/69
[2019-03-29] MEDS: K and/or MAG REPLACEMENT MC SCH (08:00)
[2019-03-29] MEDS: potassium chloride 10mEq ER tablet PO SCH ×2 (08:24→20:00)
[2019-03-29] MEDS: risperiDONE 0.5mg tablet PO SCH ×2 (08:24→20:00)
[2019-03-29] MEDS: docusate sod 100mg capsule PO SCH ×2 (08:24→20:00)
[2019-03-29] MEDS: fluconazole 100mg tablet PO SCH (08:24)
[2019-03-29] MEDS: furosemide 20MG tablet PO SCH ×2 (08:24→20:00)
[2019-03-29] MEDS: lactobacillus rhamnosus 10,000 MMU CELLS/CAPSULE PO SCH (08:24)
[2019-03-29] MEDS: heparin, porcine 5000 units/ml vial SQ SCH ×2 (08:25→20:00)
[2019-03-29] MEDS: duloxetine 30mg CAPSULE.DR PO SCH (08:25)
[2019-03-29] MEDS: nystatin 15 GM powder TP SCH ×3 (08:25→21:00)
--- NOTE | 2019-03-29 10:22 | NUR ---
Reassessment: No significant changes in PO intake, continues overall at 75-100% with 25% or refusal of one meal over the last three days. Likely pt is still closely meeting nutrient needs receiving Ensure pudding TID and vanilla shake with lunch. LBM 03/28. Pt continues awaiting placement. Will continue to follow. Recommendations: 1) Continue regular diet 2) Vanilla ensure pudding TIDWM; vanilla shake at lunch 3) Routine bowel care 4) Encourage PO intake 5) Wt per rx Addendum: 03/29/19 at [address] Amended: Links added.
[2019-03-29 11:30] VITALS: BP 115/77
[2019-03-29] MEDS: LORazepam 1 MG tablet PO PRN ×2 (17:24→20:06)
--- NOTE | 2019-03-29 18:29 | NUR ---
Problems reprioritized. Patient report given, questions answered & plan of care reviewed with Gurjit LINDER.
--- NOTE | 2019-03-29 18:44 | NUR ---
Patient in room [facility]. I have received report from KAILASH Ontiveros and had the opportunity to ask questions and assume patient care.
[2019-03-29] MEDS: ziprasidone IM 20mg inj **IM only IM PRN (20:12)
--- NOTE | 2019-03-29 20:40 | NUR ---
Patient became very agitated, tried to get out of bed, and was trying to break her fingers, as well as punch herself in the face. She was being uncooperative, and would not listen or settle down. Relaxation techniques were not helping, she refused PO Ativan. So Yousifdon was given IM , at 2011. Patient is now relaxed, and resting comfortable. Will continue to monitor patient.
[2019-03-29] MEDS: mirtazapine 15mg tablet PO SCH (21:00)
--- NOTE | 2019-03-30 06:32 | NUR ---
Problems reprioritized. Patient report given, questions answered & plan of care reviewed with KAILASH Martinez.
[2019-03-30 08:00] VITALS: BP 158/82
[2019-03-30] MEDS: K and/or MAG REPLACEMENT MC SCH (08:00)
[2019-03-30] MEDS: heparin, porcine 5000 units/ml vial SQ SCH ×2 (08:18→19:56)
[2019-03-30] MEDS: potassium chloride 10mEq ER tablet PO SCH ×2 (08:19→19:49)
[2019-03-30] MEDS: nystatin 15 GM powder TP SCH ×3 (08:19→20:04)
[2019-03-30] MEDS: docusate sod 100mg capsule PO SCH ×2 (08:19→19:49)
[2019-03-30] MEDS: duloxetine 30mg CAPSULE.DR PO SCH (08:19)
[2019-03-30] MEDS: furosemide 20MG tablet PO SCH ×2 (08:19→19:49)
[2019-03-30] MEDS: risperiDONE 0.5mg tablet PO SCH ×2 (08:39→20:02)
[2019-03-30] MEDS: fluconazole 100mg tablet PO SCH (08:40)
[2019-03-30] MEDS: LORazepam 1 MG tablet PO PRN ×3 (10:35→21:33)
--- NOTE | 2019-03-30 10:38 | NUR ---
PT IS FEELING A LITTLE ANXIOUS. GAVE HER ATIVAN
[2019-03-30 12:00] VITALS: BP 112/62
--- NOTE | 2019-03-30 18:06 | NUR ---
Patient in room [facility]. I have received report from KAILASH Martinez and had the opportunity to ask questions and assume patient care.
--- NOTE | 2019-03-30 18:11 | NUR ---
Problems reprioritized. Patient report given, questions answered & plan of care reviewed with KAILASH Billy.
[2019-03-30 20:00] VITALS: BP 127/78
[2019-03-30] MEDS: mirtazapine 15mg tablet PO SCH (20:02)
[2019-03-30] MEDS: ziprasidone IM 20mg inj **IM only IM PRN (21:55)
--- NOTE | 2019-03-30 21:55 | NUR ---
pt became increasing agitated and attempted to climb out of bed saying she is going to go home right now. PO ativan given at 2132 due to pt request of increasing anxiety and agitation. unable to reassure pt and calm through therapeutic communication. WESLY Morrison given. will continue to monitor Addendum: 03/31/19 at 0202 by Jeovanny Law RN Amended: Links added.
--- NOTE | 2019-03-31 06:48 | NUR ---
Problems reprioritized. Patient report given, questions answered & plan of care reviewed with KAILASH Callahan.
[2019-03-31] MEDS: K and/or MAG REPLACEMENT MC SCH (08:00)
[2019-03-31] MEDS: nystatin 15 GM powder TP SCH ×4 (10:00→22:16)
[2019-03-31] MEDS: heparin, porcine 5000 units/ml vial SQ SCH ×2 (10:00→22:24)
[2019-03-31] MEDS: duloxetine 30mg CAPSULE.DR PO SCH (10:00)
[2019-03-31] MEDS: fluconazole 100mg tablet PO SCH (10:01)
[2019-03-31] MEDS: risperiDONE 0.5mg tablet PO SCH ×2 (10:01→22:14)
[2019-03-31] MEDS: docusate sod 100mg capsule PO SCH ×2 (10:01→22:13)
[2019-03-31] MEDS: potassium chloride 10mEq ER tablet PO SCH ×2 (10:01→22:14)
[2019-03-31] MEDS: furosemide 20MG tablet PO SCH ×2 (10:01→22:13)
[2019-03-31] MEDS: ziprasidone IM 20mg inj **IM only IM PRN ×2 (10:40→14:30)
[2019-03-31] MEDS: LORazepam 1 MG tablet PO PRN ×3 (17:30→22:13)
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
--- NOTE | 2019-03-31 18:58 | NUR ---
PT. REFUSED FOR VITALS TO BE TAKEN ALL SHIFT.
[2019-03-31 19:00] VITALS: BP 136/80
--- NOTE | 2019-03-31 19:27 | NUR ---
GAVE REPORT TO LIAM LINDER.
[2019-03-31] MEDS: mirtazapine 15mg tablet PO SCH (22:14)
--- NOTE | 2019-04-01 07:02 | NUR ---
Problems reprioritized. Patient report given, questions answered & plan of care reviewed with Jesi LINDER. Addendum: 04/01/19 at 0703 by Jocelyn Rhodes RN Amended: Links added.
[2019-04-01 08:00] VITALS: BP 120/78
[2019-04-01] MEDS: K and/or MAG REPLACEMENT MC SCH (08:00)
[2019-04-01] MEDS: risperiDONE 0.5mg tablet PO SCH ×2 (08:58→21:13)
[2019-04-01] MEDS: furosemide 20MG tablet PO SCH ×2 (08:58→20:55)
[2019-04-01] MEDS: LORazepam 1 MG tablet PO PRN ×3 (08:58→21:06)
[2019-04-01] MEDS: nystatin 15 GM powder TP SCH ×3 (08:58→21:18)
[2019-04-01] MEDS: docusate sod 100mg capsule PO SCH ×2 (08:58→20:54)
[2019-04-01] MEDS: duloxetine 30mg CAPSULE.DR PO SCH (08:58)
[2019-04-01] MEDS: potassium chloride 10mEq ER tablet PO SCH ×2 (08:58→21:16)
[2019-04-01] MEDS: heparin, porcine 5000 units/ml vial SQ SCH ×2 (08:59→21:01)
[2019-04-01] MEDS: HYDROcodone/acetaminophen 10/325mg tab PO PRN (12:10)
[2019-04-01] MEDS: diphenhydrAMINE 25mg capsule PO PRN (12:10)
--- NOTE | 2019-04-01 18:45 | NUR ---
Good shift with patient appropriate with affect and cheerful with mood. Ativan x3 for anxiety. Report given to Mark LINDER
[2019-04-01 19:00] VITALS: BP 120/78
[2019-04-01] MEDS: mirtazapine 15mg tablet PO SCH (20:59)
[2019-04-01] MEDS: ondansetron 4mg rapidly disintigrating tab PO PRN (23:37)
[2019-04-02] MEDS: diphenhydrAMINE 25mg capsule PO PRN ×2 (00:39→17:36)
[2019-04-02] MEDS: HYDROcodone/acetaminophen 10/325mg tab PO PRN ×2 (00:39→17:37)
[2019-04-02] MEDS: LORazepam 1 MG tablet PO PRN ×3 (04:13→14:35)
[2019-04-02 05:00] VITALS: BP 127/79
--- NOTE | 2019-04-02 06:41 | NUR ---
Problems reprioritized. Patient report given, questions answered & plan of care reviewed with Jesi LINDER. Addendum: 04/02/19 at 0641 by Jocelyn Rhodes RN Amended: Links added.
--- NOTE | 2019-04-02 07:09 | NUR ---
Patient in room [facility]. I have received report from rafal LINDER and had the opportunity to ask questions and assume patient care.
[2019-04-02] MEDS: K and/or MAG REPLACEMENT MC SCH (08:00)
[2019-04-02] MEDS: nystatin 15 GM powder TP SCH ×3 (08:00→21:02)
[2019-04-02] MEDS: duloxetine 30mg CAPSULE.DR PO SCH (09:01)
[2019-04-02] MEDS: potassium chloride 10mEq ER tablet PO SCH ×2 (09:01→21:01)
[2019-04-02] MEDS: furosemide 20MG tablet PO SCH ×2 (09:02→21:01)
[2019-04-02] MEDS: docusate sod 100mg capsule PO SCH ×2 (09:02→21:01)
[2019-04-02] MEDS: heparin, porcine 5000 units/ml vial SQ SCH ×2 (09:02→21:01)
[2019-04-02] MEDS: risperiDONE 0.5mg tablet PO SCH ×2 (09:02→21:03)
[2019-04-02 13:06] VITALS: BP 127/87
[2019-04-02 18:00] VITALS: BP 116/70
--- NOTE | 2019-04-02 18:58 | NUR ---
Patient in room [facility]. I have received report from KAILASH Dennison and had the opportunity to ask questions and assume patient care. Addendum: 04/02/19 at 1858 by Joan Hogan RN Amended: Links added.
--- NOTE | 2019-04-02 18:59 | NUR ---
Problems reprioritized. Patient report given, questions answered & plan of care reviewed with JOSUE Garcia RN.
[2019-04-02] MEDS: mirtazapine 15mg tablet PO SCH (21:01)
[2019-04-03 06:30] VITALS: BP 131/85
--- NOTE | 2019-04-03 06:30 | NUR ---
Patient in room [facility]. I have received report from KAILASH Haley and had the opportunity to ask questions and assume patient care.
--- NOTE | 2019-04-03 06:41 | NUR ---
Problems reprioritized. Patient report given, questions answered & plan of care reviewed with KAILASH Simons. Addendum: 04/03/19 at 0642 by Joan Hogan RN Amended: Links added.
[2019-04-03] MEDS: K and/or MAG REPLACEMENT MC SCH (07:17)
[2019-04-03] MEDS: furosemide 20MG tablet PO SCH ×2 (09:25→19:54)
[2019-04-03] MEDS: duloxetine 30mg CAPSULE.DR PO SCH (09:25)
[2019-04-03] MEDS: risperiDONE 0.5mg tablet PO SCH ×2 (09:26→19:54)
[2019-04-03] MEDS: docusate sod 100mg capsule PO SCH ×2 (09:26→19:54)
[2019-04-03] MEDS: heparin, porcine 5000 units/ml vial SQ SCH ×2 (09:26→19:55)
[2019-04-03] MEDS: potassium chloride 10mEq ER tablet PO SCH ×2 (09:26→19:54)
[2019-04-03] MEDS: nystatin 15 GM powder TP SCH ×3 (09:27→19:57)
[2019-04-03] MEDS: LORazepam 1 MG tablet PO PRN ×3 (09:57→19:54)
[2019-04-03 11:00] VITALS: BP 124/78
--- NOTE | 2019-04-03 14:24 | NUR ---
Reassessment: Pt PO 75% avg meals meeting needs. LBM 04/01. No nutrition concerns at this time. Will continue to monitor. Recommendations: 1) Continue regular diet 2) Vanilla ensure pudding TIDWM; vanilla shake at lunch 3) Routine bowel care 4) Encourage PO intake 5) Wt per rx Addendum: 04/03/19 at [address] Amended: Links added.
--- NOTE | 2019-04-03 18:25 | NUR ---
Problems reprioritized. Patient report given, questions answered & plan of care reviewed with KAILASH Pagan.
--- NOTE | 2019-04-03 18:30 | NUR ---
Patient in room [facility]. I have received report from Kristyn LINDER and had the opportunity to ask questions and assume patient care.
[2019-04-03 19:00] VITALS: BP 105/60
[2019-04-03] MEDS: mirtazapine 15mg tablet PO SCH (19:54)
--- NOTE | 2019-04-04 06:25 | NUR ---
Problems reprioritized. Patient report given, questions answered & plan of care reviewed with Sindy LINDER.
[2019-04-04 07:00] VITALS: BP 125/78
[2019-04-04] MEDS: K and/or MAG REPLACEMENT MC SCH (08:00)
[2019-04-04] MEDS: duloxetine 30mg CAPSULE.DR PO SCH (08:54)
[2019-04-04] MEDS: risperiDONE 0.5mg tablet PO SCH ×2 (08:54→19:11)
[2019-04-04] MEDS: docusate sod 100mg capsule PO SCH ×2 (08:54→19:10)
[2019-04-04] MEDS: furosemide 20MG tablet PO SCH ×2 (08:54→19:10)
[2019-04-04] MEDS: potassium chloride 10mEq ER tablet PO SCH ×2 (08:54→19:10)
[2019-04-04] MEDS: heparin, porcine 5000 units/ml vial SQ SCH ×2 (08:55→19:10)
[2019-04-04] MEDS: nystatin 15 GM powder TP SCH ×3 (08:55→19:56)
--- NOTE | 2019-04-04 11:02 | NUR ---
PT. TEARFUL STATING SHE IS NERVOUS TO GO HOME. REASSURANCE INEFFECTIVE, ATIVAN ADMINISTERED PER ORDER.
[2019-04-04] MEDS: LORazepam 1 MG tablet PO PRN ×2 (11:03→19:10)
[2019-04-04 11:34] VITALS: BP 125/78
--- NOTE | 2019-04-04 12:37 | NUR ---
PT CRYING AND SCREAMING. UPSET BECAUSE HEALTH ASSISTANT SPOKE TO HER ABOUT GOING HOME. MULTIPLE STAFF MEMBERS TRIED TO REASSURE. INEFFECTIVE. ASKED PT. IF SHE FELT HER MEDICATION WOULD BE HELPFUL. SHE STATED YES. THERON JARRELL ADMINISTERED PER ORDER.
[2019-04-04] MEDS: ziprasidone IM 20mg inj **IM only IM PRN ×2 (12:39→20:29)
[2019-04-04 18:20] LABS: GLUCOSE, URINE NEGATIVE (Neg); KETONES,URINE NEGATIVE (Neg); LEUKOCYTE ESTERASE ,URINE NEGATIVE (Neg); NITRITES, URINE NEGATIVE (Neg); OCCULT BLOOD,URINE NEGATIVE (Neg); PROTEIN,URINE NEGATIVE (Neg); UROBILINOGEN,URINE 0.2 E.U/dL (0.2-1.0)
[2019-04-04 18:22] LABS: COLOR,URINE DARK YELLOW (Yellow); UA COLLECTION TYPE STRAIGHT CATH
--- NOTE | 2019-04-04 18:39 | NUR ---
Patient in room [facility]. I have received report from Sindy LINDER and had the opportunity to ask questions and assume patient care.
--- NOTE | 2019-04-04 18:40 | NUR ---
Pt. resting in bed, breathing. Gave report to
[2019-04-04 18:45] LABS: CLARITY,URINE SLIGHTLY CLOUDY (Clear)
[2019-04-04 18:48] LABS: RBC,URINE NONE SEEN /HPF (0-2); SQUAMOUS EPITHELIAL CELL,UR FEW /LPF (FEW); WBC,URINE 0-4 /HPF (0-4)
[2019-04-04 18:49] LABS: BACTERIA,URINE FEW /HPF (Neg); MUCUS STRANDS MANY /LPF (Neg)
[2019-04-04] MEDS: mirtazapine 15mg tablet PO SCH (19:10)
[2019-04-04 20:00] VITALS: BP 125/77
--- NOTE | 2019-04-05 06:38 | NUR ---
Patient in room [facility]. I have received report from Radha LINDER and had the opportunity to ask questions and assume patient care.
--- NOTE | 2019-04-05 06:38 | NUR ---
Problems reprioritized. Patient report given, questions answered & plan of care reviewed with Justine LINDER.
[2019-04-05 08:00] VITALS: BP 101/59
[2019-04-05] MEDS: K and/or MAG REPLACEMENT MC SCH (08:00)
[2019-04-05] MEDS: docusate sod 100mg capsule PO SCH ×2 (08:32→19:18)
[2019-04-05] MEDS: nystatin 15 GM powder TP SCH ×3 (08:32→20:10)
[2019-04-05] MEDS: furosemide 20MG tablet PO SCH ×2 (08:32→19:13)
[2019-04-05] MEDS: potassium chloride 10mEq ER tablet PO SCH ×2 (08:32→19:13)
[2019-04-05] MEDS: duloxetine 30mg CAPSULE.DR PO SCH (08:32)
[2019-04-05] MEDS: risperiDONE 0.5mg tablet PO SCH ×2 (08:32→19:13)
[2019-04-05] MEDS: heparin, porcine 5000 units/ml vial SQ SCH ×2 (08:33→19:14)
[2019-04-05] MEDS: LORazepam 1 MG tablet PO PRN ×2 (13:49→19:13)
[2019-04-05 18:00] VITALS: BP 132/84
--- NOTE | 2019-04-05 18:30 | NUR ---
Patient in room [facility]. I have received report from KAILASH Fletcher and had the opportunity to ask questions and assume patient care.
[2019-04-05] MEDS: mirtazapine 15mg tablet PO SCH (20:10)
[2019-04-05] MEDS: ziprasidone IM 20mg inj **IM only IM PRN (21:50)
--- NOTE | 2019-04-06 06:26 | NUR ---
Problems reprioritized. Patient report given, questions answered & plan of care reviewed with KAILASH Fulton.
--- NOTE | 2019-04-06 06:27 | NUR ---
Patient in room [facility]. I have received report from KAILASH BARAHONA and had the opportunity to ask questions and assume patient care.
[2019-04-06 07:20] VITALS: BP 121/84
[2019-04-06] MEDS: K and/or MAG REPLACEMENT MC SCH (08:00)
[2019-04-06] MEDS: duloxetine 30mg CAPSULE.DR PO SCH (08:13)
[2019-04-06] MEDS: heparin, porcine 5000 units/ml vial SQ SCH ×2 (08:13→20:52)
[2019-04-06] MEDS: docusate sod 100mg capsule PO SCH ×2 (08:13→20:52)
[2019-04-06] MEDS: furosemide 20MG tablet PO SCH ×2 (08:13→20:52)
[2019-04-06] MEDS: potassium chloride 10mEq ER tablet PO SCH ×2 (08:13→20:52)
[2019-04-06] MEDS: risperiDONE 0.5mg tablet PO SCH ×2 (08:14→20:52)
[2019-04-06] MEDS: nystatin 15 GM powder TP SCH ×3 (08:14→20:52)
[2019-04-06 11:37] VITALS: BP 125/67
[2019-04-06 18:00] VITALS: BP 120/73
--- NOTE | 2019-04-06 18:35 | NUR ---
Patient in room [facility]. I have received report from Kirstin LINDER and had the opportunity to ask questions and assume patient care.
--- NOTE | 2019-04-06 18:40 | NUR ---
Problems reprioritized. Patient report given, questions answered & plan of care reviewed with KAILASH AYALA.
[2019-04-06] MEDS: mirtazapine 15mg tablet PO SCH (20:52)
[2019-04-06] MEDS: clonazePAM 0.5mg tablet PO PRN (20:56)
--- NOTE | 2019-04-07 06:30 | NUR ---
Patient in room [facility]. I have received report from Chet LINDER and had the opportunity to ask questions and assume patient care.
--- NOTE | 2019-04-07 06:46 | NUR ---
Problems reprioritized. Patient report given, questions answered & plan of care reviewed with Lv RN.
[2019-04-07 07:00] VITALS: BP 148/75
[2019-04-07] MEDS: K and/or MAG REPLACEMENT MC SCH (08:00)
[2019-04-07] MEDS: furosemide 20MG tablet PO SCH ×2 (08:39→20:11)
[2019-04-07] MEDS: docusate sod 100mg capsule PO SCH ×2 (08:40→20:00)
[2019-04-07] MEDS: potassium chloride 10mEq ER tablet PO SCH ×2 (08:40→20:11)
[2019-04-07] MEDS: risperiDONE 0.5mg tablet PO SCH ×2 (08:41→20:11)
[2019-04-07] MEDS: duloxetine 30mg CAPSULE.DR PO SCH (08:42)
[2019-04-07] MEDS: nystatin 15 GM powder TP SCH ×3 (08:42→20:11)
[2019-04-07] MEDS: heparin, porcine 5000 units/ml vial SQ SCH ×2 (08:43→20:13)
[2019-04-07 11:00] VITALS: BP 119/67
[2019-04-07] MEDS ORDERED: DULO30CA52 PO (13:06)
[2019-04-07] MEDS ORDERED: RISP0.5T3 PO (13:06)
[2019-04-07] MEDS ORDERED: COL100C PO (13:06)
[2019-04-07] MEDS ORDERED: HYDR-3717 PO (13:06)
[2019-04-07] MEDS ORDERED: MAGN400O6 PO (13:06)
[2019-04-07] MEDS ORDERED: MIRT15TA8 PO (13:06)
[2019-04-07] MEDS ORDERED: CLON0.5T12 PO (13:06)
[2019-04-07] MEDS: clonazePAM 0.5mg tablet PO PRN ×2 (13:48→20:11)
[2019-04-07] MEDS: HYDROcodone/acetaminophen 10/325mg tab PO PRN (14:54)
--- NOTE | 2019-04-07 18:30 | NUR ---
Problems reprioritized. Patient report given, questions answered & plan of care reviewed with Chet LINDER.
--- NOTE | 2019-04-07 18:30 | NUR ---
Patient in room [facility]. I have received report from Lv LINDER and had the opportunity to ask questions and assume patient care.
[2019-04-07 19:00] VITALS: BP 143/82
[2019-04-07] MEDS: mirtazapine 15mg tablet PO SCH (20:11)
--- NOTE | 2019-04-08 06:25 | NUR ---
Problems reprioritized. Patient report given, questions answered & plan of care reviewed with Angel LINDER.
--- NOTE | 2019-04-08 06:39 | NUR ---
Patient in room [facility]. I have received report from Chet LINDER and had the opportunity to ask questions and assume patient care.
[2019-04-08 07:17] VITALS: BP 150/54
[2019-04-08] MEDS: K and/or MAG REPLACEMENT MC SCH (08:00)
[2019-04-08] MEDS: docusate sod 100mg capsule PO SCH (08:00)
[2019-04-08] MEDS: nystatin 15 GM powder TP SCH ×2 (08:03→12:41)
[2019-04-08] MEDS: furosemide 20MG tablet PO SCH (08:04)
[2019-04-08] MEDS: risperiDONE 0.5mg tablet PO SCH (08:04)
[2019-04-08] MEDS: potassium chloride 10mEq ER tablet PO SCH (08:04)
[2019-04-08] MEDS: duloxetine 30mg CAPSULE.DR PO SCH (08:05)
[2019-04-08] MEDS: heparin, porcine 5000 units/ml vial SQ SCH (08:06)
[2019-04-08] MEDS: clonazePAM 0.5mg tablet PO PRN (12:41)
--- NOTE | 2019-04-08 15:20 | NUR ---
Patient left via Ambulance with all belongings patient left with medication and discharge instructions after teaching. Patient educated on scheduling her own follow ups and encouraged to loose weight. No iv to remove at this time
== END 2019-04-08 15:15 | disposition home health service (06) | DRG 603 ==
LOC: ER 09:45 → SUR 3N 15:02 → CMPBEDREQ 02-27 08:04 → SUR 3N 02-28 20:00
PROVIDERS: ADMIT Internal Medicine; ATTEND Family Medicine
PROC: 5A09357 Assistance with Respiratory Ventilation, Less than 24 Consecutive Hours, Continuous Positive Airway Pressure (ICD-10-PCS; principal; 2019-02-26)
DX: L03.116 Cellulitis of left lower limb (principal); F23 Brief psychotic disorder; Z68.44 Body mass index [BMI] 60.0-69.9, adult; I89.0 Lymphedema, not elsewhere classified; E66.01 Morbid (severe) obesity due to excess calories; G89.29 Other chronic pain; F41.9 Anxiety disorder, unspecified; B37.2 Candidiasis of skin and nail; F39 Unspecified mood [affective] disorder; B35.3 Tinea pedis; F43.10 Post-traumatic stress disorder, unspecified; M79.18 Myalgia, other site; F60.3 Borderline personality disorder; F91.8 Other conduct disorders; F98.4 Stereotyped movement disorders; G47.30 Sleep apnea, unspecified; K59.00 Constipation, unspecified; Z78.1 Physical restraint status; Z79.899 Other long term (current) drug therapy; Z91.410 Personal history of adult physical and sexual abuse; Z91.411 Personal history of adult psychological abuse; Z71.3 Dietary counseling and surveillance
CPT/HCPCS: 36415; 80048; 80053; 80202; 81001; 83605; 83735; 83880; 84100; 84145; 85025; 87040; 87081; 87088; 93005; 94760; 96365; 96375; 97110; 97116; 97161; 97530; 97535; 97760; 99285; G0378; J0696; J1644; J2060; J2270; J2405; J2543; J3370; J3486; J7030; J7042; Q0163

== ENCOUNTER 2019-05-12 14:59 | Emergency (ER) | payer MEDICARE, MEDICAID ==
[~2019-05-12] VITALS: Ht 167.6 cm; Wt 163.6 kg
[~2019-05-12 14:59] MED LIST changes: -BUPR300T86 PO; -CELE200C PO; +CLON0.5T12 PO; +COL100C PO; +DULO30CA52 PO; +FURO-150 PO; +HYDR-3717 PO; +MAGN400O6 PO; +MIRT15TA8 PO; +NYST15PO4 TOP; +POTA10TA36 PO; +RISP0.5T3 PO
[2019-05-12] MEDS ORDERED: LORazepam 2 mg/ml vial IV ONE (17:00)
[2019-05-12 19:54] VITALS: BP 185/97
[2019-05-12 21:48] LABS: ALANINE AMINOTRANSFERASE 17 U/L (12-78); ALBUMIN 3.5 G/DL (3.4-5.0); ALBUMIN/GLOBULIN RATIO 0.8 (1.1-1.5); ALKALINE PHOSPHATASE 80 IU/L (46-116); ANION GAP 8 (8-16); ASPARTATE AMINO TRANSFERASE 9 U/L (10-37); BILIRUBIN,TOTAL 0.5 MG/DL (0.1-1.0); BLOOD UREA NITROGEN 8 MG/DL (7-18); BUN/CREATININE RATIO 11.1 (6.6-38.0); CALCIUM 9.7 MG/DL (8.5-10.1); CHLORIDE 104 MMOL/L (99-107); CREATININE 0.72 MG/DL (0.40-0.90); GLUCOSE 95 MG/DL (70-104); SODIUM 142 MMOL/L (135-145); TOTAL CARBON DIOXIDE 29.7 MMOL/L (24-32); TOTAL PROTEIN 7.9 G/DL (6.4-8.2); eGFR 86 ML/MIN
[2019-05-12 21:59] LABS: BASOPHILS # (AUTO) 0.1 X10'3 (0-0.2); BASOPHILS % (AUTO) 0.7 % (0-1); EOSINOPHILS # (AUTO) 0.1 X10'3 (0-0.9); EOSINOPHILS % (AUTO) 0.6 % (0-6); HEMATOCRIT 40.7 % (35.0-45.0); HEMOGLOBIN 13.5 g/dl (12.0-16.0); LYMPHOCYTES # (AUTO) 2.1 X10'3 (1.1-4.8); LYMPHOCYTES % (AUTO) 21.2 % (21-51); MEAN CORPUSCULAR HEMOGLOBIN 29.9 PG (27.0-31.0); MEAN CORPUSCULAR VOLUME 90.4 FL (78-98); MEAN PLATELET VOLUME 9.5 FL (7.4-10.4); MONOCYTES # (AUTO) 0.7 X10'3 (0-0.9); NEUTROPHILS # (AUTO) 6.8 X10'3 (1.8-7.7); NEUTROPHILS % (AUTO) 70.5 % (42-75); PLATELET COUNT 230 X10'3 (140-440); RED CELL DISTRIBUTION WIDTH 14.5 % (11.5-14.5); WHITE BLOOD COUNT 9.7 X10'3 (4.5-11.0)
== END 2019-05-12 22:42 | disposition home or self-care (01) ==
LOC: ER 15:00
DX: I87.2 Venous insufficiency (chronic) (peripheral) (principal); G47.30 Sleep apnea, unspecified; Z98.890 Other specified postprocedural states; Z79.899 Other long term (current) drug therapy
CPT/HCPCS: 36415; 80053; 85025; 99283

== ENCOUNTER 2019-06-08 10:01 | Day surgery (SDC) | payer MEDICARE, MEDICAID | END 2019-06-08 12:13 | disposition home or self-care (01) | LOC: WOUND CARE 10:01 | PROVIDERS: ATTEND Surgery | DX: L97.811 Non-pressure chronic ulcer of other part of right lower leg limited to breakdown of skin (principal); L97.821 Non-pressure chronic ulcer of other part of left lower leg limited to breakdown of skin; I87.2 Venous insufficiency (chronic) (peripheral); I89.0 Lymphedema, not elsewhere classified; L03.116 Cellulitis of left lower limb; L03.115 Cellulitis of right lower limb; G47.30 Sleep apnea, unspecified; Z79.899 Other long term (current) drug therapy; Z98.890 Other specified postprocedural states | CPT/HCPCS: 97597; A6223; A4663; A6021; A6446 ==

== ENCOUNTER 2019-06-16 10:00 | Day surgery (SDC) | payer MEDICARE, MEDICAID ==
[~2019-06-16 10:00] MED LIST changes: -CLON0.5T12 PO; +CLON0.5T4 PO
[2019-06-16] MEDS ORDERED: LIDOcaine 2% 5ml jelly ONE (10:25)
== END 2019-06-16 11:47 | disposition home or self-care (01) ==
LOC: WOUND CARE 10:00
PROVIDERS: ATTEND Surgery
DX: L97.811 Non-pressure chronic ulcer of other part of right lower leg limited to breakdown of skin (principal); L97.821 Non-pressure chronic ulcer of other part of left lower leg limited to breakdown of skin; I87.2 Venous insufficiency (chronic) (peripheral); I89.0 Lymphedema, not elsewhere classified; L03.116 Cellulitis of left lower limb; L03.115 Cellulitis of right lower limb; G47.30 Sleep apnea, unspecified; Z79.899 Other long term (current) drug therapy; Z98.890 Other specified postprocedural states
CPT/HCPCS: 97597

== ENCOUNTER 2019-06-20 15:21 | Emergency (ER) | payer MEDICARE, MEDICAID ==
[~2019-06-20] VITALS: Ht 175.3 cm; Wt 181.8 kg
[2019-06-20] MEDS ORDERED: normal saline 1000ML IV soln IV ONE (15:30)
[2019-06-20] MEDS ORDERED: LORazepam 2 mg/ml vial IV ONE ×2 (15:30→16:25)
[2019-06-20 15:47] LABS: BASOPHILS % (AUTO) 0.6 % (0-1); EOSINOPHILS # (AUTO) 0.1 X10'3 (0-0.9); EOSINOPHILS % (AUTO) 1.2 % (0-6); HEMATOCRIT 40.9 % (35.0-45.0); HEMOGLOBIN 13.7 g/dl (12.0-16.0); LYMPHOCYTES # (AUTO) 1.8 X10'3 (1.1-4.8); LYMPHOCYTES % (AUTO) 24.5 % (21-51); MEAN CORPUSCULAR HEMOGLOBIN 29.6 PG (27.0-31.0); MEAN CORPUSCULAR HGB CONC 33.4 g/dL (33.0-36.5); MEAN CORPUSCULAR VOLUME 88.5 FL (78-98); MEAN PLATELET VOLUME 9.7 FL (7.4-10.4); MONOCYTES # (AUTO) 0.5 X10'3 (0-0.9); MONOCYTES % (AUTO) 6.4 % (2-12); NEUTROPHILS % (AUTO) 67.3 % (42-75); PLATELET COUNT 234 X10'3 (140-440); RED BLOOD COUNT 4.62 X10'6 (4.20-5.60); RED CELL DISTRIBUTION WIDTH 14.1 % (11.5-14.5); WHITE BLOOD COUNT 7.5 X10'3 (4.5-11.0)
[2019-06-20 16:06] LABS: LACTIC SEPSIS 2.5 MMOL/L (0.4-2.0)
[2019-06-20 16:15] LABS: ALANINE AMINOTRANSFERASE 14 U/L (12-78); ALBUMIN 3.3 G/DL (3.4-5.0); ALBUMIN/GLOBULIN RATIO 0.7 (1.1-1.5); ALKALINE PHOSPHATASE 73 IU/L (46-116); ANION GAP 8 (8-16); ASPARTATE AMINO TRANSFERASE 8 U/L (10-37); BILIRUBIN,TOTAL 0.4 MG/DL (0.1-1.0); BLOOD UREA NITROGEN 9 MG/DL (7-18); BUN/CREATININE RATIO 12.5 (6.6-38.0); CHLORIDE 101 MMOL/L (99-107); CREATININE 0.72 MG/DL (0.40-0.90); GLUCOSE 104 MG/DL (70-104); SODIUM 140 MMOL/L (135-145); TOTAL CARBON DIOXIDE 31.1 MMOL/L (24-32); TOTAL PROTEIN 7.9 G/DL (6.4-8.2); TROPONIN I < 0.04 NG/ML (0.0-0.05); eGFR 85 ML/MIN
[2019-06-20 16:16] LABS: ETHANOL < 0.010 GM/DL (0.0-0.010)
[2019-06-20 16:18] LABS: CLARITY,URINE CLEAR (Clear); COLOR,URINE STRAW (Yellow); GLUCOSE, URINE NEGATIVE (Neg); KETONES,URINE NEGATIVE (Neg); LEUKOCYTE ESTERASE ,URINE NEGATIVE (Neg); NITRITES, URINE NEGATIVE (Neg); OCCULT BLOOD,URINE NEGATIVE (Neg); PROTEIN,URINE NEGATIVE (Neg); UROBILINOGEN,URINE 0.2 E.U/dL (0.2-1.0)
[2019-06-20] MEDS ORDERED: magnesium 2GM in 50ml NS 50 ML IV ONE (16:25)
[2019-06-20] MEDS ORDERED: CefTRIAXone 2gm/D5W 50ml 50 ML IV ONE (16:25)
[2019-06-20 16:27] LABS: UA COLLECTION TYPE FOLEY CATH
[2019-06-20 16:31] LABS: URINE AMPHETAMINE SCREEN NEGATIVE (Neg); URINE BARBITUATE SCREEN NEGATIVE (Neg); URINE BENZODIAZEPINES SCREEN NEGATIVE (Neg); URINE CANNABINOID SCREEN NEGATIVE (Neg); URINE COCAINE SCREEN NEGATIVE (Neg); URINE METHADONE SCREEN NEGATIVE (Neg); URINE OPIATE SCREEN NEGATIVE (Neg); URINE PHENCYCLIDINE SCREEN NEGATIVE (Neg)
[2019-06-20 16:35] LABS: ABG BASE EXCESS 4.8 mmol/L (-2.0-3.0); ABG HCO3 30.6 mmol/L (22.0-26.0); ABG OXYGEN SATURATION 95.5 % (95-98); ABG PCO2 (T) 49.8 mmHg (35.0-45.0); ABG PH (T) 7.406 (7.350-7.450); ABG PO2 (T) 78.1 mmHg (83-108); ALLEN'S TEST Positive; FCOHb 0.9 % (0.5-1.5); FMetHb 0.1 % (0.3-1.12); FO2Hb 94.5 % (94-100); TOTAL HEMOGLOBIN 13.5 G/dl (12.0-16.0)
[2019-06-20 16:49] LABS: CREATINE KINASE 42 U/L (26-192)
[2019-06-20] MEDS ORDERED: FURO40TA4 PO (16:59)
[2019-06-20] MEDS ORDERED: RISP1TAB13 PO (16:59)
[2019-06-20] MEDS ORDERED: DULO60CA65 PO (16:59)
[2019-06-20] MEDS ORDERED: MIRT30TA8 PO (17:00)
[2019-06-20] MEDS ORDERED: CLON0.5T4 PO (17:02)
--- NOTE | 2019-06-20 17:06 | NUR ---
SISTER [phone]
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
[2019-06-20] MEDS ORDERED: haloperidol lactate 5mg/ml inj IM ONE (17:45)
--- NOTE | 2019-06-20 17:45 | NUR ---
[facility] transport crew is here to transport the patient to [facility].
--- NOTE | 2019-06-20 17:50 | NUR ---
Pt's weight obtained on the EMS gurney and noted to be 178kg exact. CT scan notified and she is under the weight limit to have scan completed here in the CT scanner, transfer to [facility] is not needed at this time.
--- NOTE | 2019-06-20 18:05 | NUR ---
Pt transported to CT scan with multiple staff members. Pt continues to be uncooperative. Pt unwilling to settle down during the scan.
--- NOTE | 2019-06-20 18:15 | NUR ---
PT returned from CT scan via gurney. Pt's restraints remain in place on the wrists and reapplied to the ankles due to the level of combative behavior from the patient.
--- NOTE | 2019-06-20 18:55 | NUR ---
COVERING PRIMARY RN FOR LUNCH. PT IS IN WRIST RESTRAINTS ONLY AT THIS TIME. CSM INTACT. PT IS RESTING STILL WITH EYES CLOSED BUT REPORTING PAIN OF 10/10. UNABLE TO SAY WHERE HER PAIN IS. PT ON SLEEP MEDICINE PHYSICIAN WITH VITALS CHARTED IN APPROPRIATE SECTION AND WNL - WILL CONTINUE TO MONITOR. PT CURRENTLY AWAITING ADMISSION BY HOSPITALIST.
--- NOTE | 2019-06-20 20:03 | NUR ---
Pt is pending transfer to ED overflow for mental health evaluation. Lab Marketing Budget Analyst collected troponin but was unsuccessful for second set of blood cultures. Lab and aoc aadc operations staff officer members have attempted multiple attempts for blood culture collection.
--- NOTE | 2019-06-20 20:20 | NUR ---
Restraints removed. PT is resting with even and unlabored respirations. Pt has stable vitals, afebrile, NSR on tele monitor. Pt's alex remains intact.
--- NOTE | 2019-06-20 21:52 | NUR ---
Scott Childs PA-C gave verbal ok to cancel troponin series. Last blood culture obtained. Santos Cath removed, Pt's tele monitor removed. Vitals stable.
--- NOTE | 2019-06-20 22:31 | NUR ---
Troponin series cancelled per Scott Ellis.
[2019-06-20] MEDS ORDERED: LORazepam 2 mg/ml vial IM ONE (22:45)
--- NOTE | 2019-06-20 22:51 | NUR ---
The patient was moved to bed 20 via guerney. She was moved to a hospital bed with max assist. She became restless and trying to roll over the side of the bed. She is one to one with staff. CHRISTIANO made aware and orders received for ativan which was given IM.
--- NOTE | 2019-06-20 23:01 | NUR ---
pt packet faxed to [facility]
--- NOTE | 2019-06-20 23:10 | NUR ---
The patient appears to be resting comfortably
--- NOTE | 2019-06-21 00:26 | NUR ---
The patient appears to be asleep. She has a one to one with staff at this time.
--- NOTE | 2019-06-21 01:55 | NUR ---
The patient appears to be sleeping. One to one with staff.
[2019-06-21] MEDS ORDERED: LORazepam 1 MG tablet PO ONE (04:05)
[2019-06-21] MEDS ORDERED: LORazepam 2 mg/ml vial ONE (04:20)
[2019-06-21] MEDS ORDERED: LORazepam 2 mg/ml vial IM ONE ×2 (04:25→07:10)
--- NOTE | 2019-06-21 04:45 | NUR ---
The patient increasingly agitated. She attempted to pull her IV out and began hitting the wall, the bedrail and her head. She was offered PO ativan which she refused. She understands direction but at this point is unable or unwilling to to follow safety requests of staff and continued to punch the side rail of the bed and hit herself in the head. She was also offered applesauce and water which she refused. She denied having to use the bathroom. Dr. Andersen was made aware that the patient refused the po ativan and behaviors. She was made aware that the patient was placed in restraints for her safety. Reviewed with the patient expected behaviors to get out of restraints. Offered reassurances and attempted to provide comfort measures ie extra pillows etc.
--- NOTE | 2019-06-21 04:59 | NUR ---
The patient appears to be sleeping.
--- NOTE | 2019-06-21 06:30 | NUR ---
Pt appears to be agitated, attempting to climb out of bed, did not listen to any services host, hitting self in the head with fist. Pt verbalized "I want to get out of bed to pee", RN advised that since she is not steady on her feet, she will use a bedpan in bed. RN assisted pt with bedpan, pt urinated without any incidence. Since pt's agitation has been escalated, ED provider will be contacted for emergency medications.
[2019-06-21] MEDS ORDERED: diphenhydrAMINE 50 mg/ml inj IM ONE (07:10)
[2019-06-21] MEDS ORDERED: haloperidol lactate 5mg/ml inj IM ONE (07:10)
--- NOTE | 2019-06-21 07:30 | NUR ---
Pt as given B52 injections due to escalated agitation and impulsitivity. RN provided medication education on B52 injections prior to administering. Pt tolerated injections without any incidence. Sitter is still with patient.
--- NOTE | 2019-06-21 09:00 | NUR ---
Pt has been in bed asleep, sitter by beside. Her sister called to check up on patient, RN provided medical updates.
--- NOTE | 2019-06-21 10:30 | NUR ---
Pt is asleep, not easily rousable. Scot from the [facility] can't assess pt at the present.
--- NOTE | 2019-06-21 12:00 | NUR ---
Pt is alseep, not in apparent distress. Sitter by [facility]
--- NOTE | 2019-06-21 14:00 | NUR ---
Pt is asleep in bed, difficult to rouse, moves all extremities by self. Sitter by bedside.
--- NOTE | 2019-06-21 15:39 | NUR ---
RESTING IN POC, NO CHANGES.
[2019-06-21 17:23] VITALS: BP 136/73
--- NOTE | 2019-06-21 17:41 | NUR ---
Assisted with bed edmonds, changed linen. Pt is aware that she is going to get discharged tonight
--- NOTE | 2019-06-21 17:41 | NUR ---
[facility] CALLED FOR TRANSPORT. NOT CURRENTLY AT LEVELS. WILL CALL BACK WITH ETA
== END 2019-06-21 18:48 | disposition home or self-care (01) ==
LOC: ER 15:22
DX: G93.41 Metabolic encephalopathy (principal); E87.2 Acidosis; I16.0 Hypertensive urgency; E66.01 Morbid (severe) obesity due to excess calories; R41.0 Disorientation, unspecified; R45.1 Restlessness and agitation; R00.0 Tachycardia, unspecified; G47.30 Sleep apnea, unspecified; Z79.899 Other long term (current) drug therapy; Z98.890 Other specified postprocedural states
CPT/HCPCS: 36415; 36600; 70450; 71045; 80053; 80305; 80320; 81003; 82140; 82550; 82803; 83605; 84145; 84484; 85018; 85025; 85610; 87040; 93005; 96361; 96365; 96366; 96368; 96372; 96375; 96376; 99291; J0696; J1200; J1630; J2060; J3475; J7030

== ENCOUNTER 2019-06-23 09:50 | Outpatient (CLI) | payer MEDICARE, MEDICAID ==
[~2019-06-23 09:50] MED LIST changes: -COL100C PO; -DULO30CA52 PO; +DULO60CA65 PO; -FURO-150 PO; +FURO40TA4 PO; -HYDR-3717 PO; -MAGN400O6 PO; -MIRT15TA8 PO; +MIRT30TA8 PO; -NYST15PO4 TOP; -RISP0.5T3 PO; +RISP1TAB13 PO
== END 2019-06-23 11:08 | disposition home or self-care (01) ==
LOC: WOUND CARE 09:50 → EDSTATUS 10:00 → WOUND CARE 11:08
PROVIDERS: ATTEND Surgery
DX: L97.811 Non-pressure chronic ulcer of other part of right lower leg limited to breakdown of skin (principal); L97.821 Non-pressure chronic ulcer of other part of left lower leg limited to breakdown of skin; I87.2 Venous insufficiency (chronic) (peripheral); I89.0 Lymphedema, not elsewhere classified; L03.116 Cellulitis of left lower limb; L03.115 Cellulitis of right lower limb; G47.30 Sleep apnea, unspecified; Z79.899 Other long term (current) drug therapy; Z98.890 Other specified postprocedural states
CPT/HCPCS: 29581; A4663; A6441

== ENCOUNTER 2019-06-30 09:45 | Day surgery (SDC) | payer MEDICARE, MEDICAID | END 2019-06-30 12:03 | disposition home or self-care (01) | LOC: WOUND CARE 09:45 | PROVIDERS: ATTEND Surgery | DX: L97.811 Non-pressure chronic ulcer of other part of right lower leg limited to breakdown of skin (principal); L97.821 Non-pressure chronic ulcer of other part of left lower leg limited to breakdown of skin; L97.211 Non-pressure chronic ulcer of right calf limited to breakdown of skin; L97.221 Non-pressure chronic ulcer of left calf limited to breakdown of skin; I87.2 Venous insufficiency (chronic) (peripheral); I89.0 Lymphedema, not elsewhere classified; L03.116 Cellulitis of left lower limb; L03.115 Cellulitis of right lower limb; E66.01 Morbid (severe) obesity due to excess calories; G47.30 Sleep apnea, unspecified; Z79.899 Other long term (current) drug therapy; Z98.890 Other specified postprocedural states; Z68.44 Body mass index [BMI] 60.0-69.9, adult | CPT/HCPCS: 29581; 97597; A4663; A6021; A6154; A6441 ==

== ENCOUNTER 2019-07-07 10:05 | Day surgery (SDC) | payer MEDICARE, MEDICAID | END 2019-07-07 11:41 | disposition home or self-care (01) | LOC: WOUND CARE 10:05 | PROVIDERS: ATTEND Surgery | DX: L97.811 Non-pressure chronic ulcer of other part of right lower leg limited to breakdown of skin (principal); L97.821 Non-pressure chronic ulcer of other part of left lower leg limited to breakdown of skin; L97.211 Non-pressure chronic ulcer of right calf limited to breakdown of skin; L97.221 Non-pressure chronic ulcer of left calf limited to breakdown of skin; I87.2 Venous insufficiency (chronic) (peripheral); I89.0 Lymphedema, not elsewhere classified; L03.116 Cellulitis of left lower limb; L03.115 Cellulitis of right lower limb; E66.01 Morbid (severe) obesity due to excess calories; G47.30 Sleep apnea, unspecified; Z79.899 Other long term (current) drug therapy; Z98.890 Other specified postprocedural states; Z68.44 Body mass index [BMI] 60.0-69.9, adult | CPT/HCPCS: 29581; A4663; A6441 ==

== ENCOUNTER 2019-08-10 11:21 | Emergency (ER) | payer MEDICARE, MEDICAID ==
[~2019-08-10] VITALS: Ht 167.6 cm; Wt 175.0 kg
[2019-08-10] MEDS ORDERED: normal saline 1000ml 1,000 ML IV ONE (13:40)
--- NOTE | 2019-08-10 13:41 | NUR ---
attempted iv start/ lab draw x4 no success. picc nurse paged.
--- NOTE | 2019-08-10 13:53 | NUR ---
picc nurse called stated she will be down shortly to start a line for labs and fluids. notified.
[2019-08-10 14:43] LABS: BASOPHILS % (AUTO) 0.7 % (0-1); EOSINOPHILS # (AUTO) 0.1 X10'3 (0-0.9); EOSINOPHILS % (AUTO) 1.1 % (0-6); HEMATOCRIT 40.1 % (35.0-45.0); HEMOGLOBIN 13.2 g/dl (12.0-16.0); LYMPHOCYTES # (AUTO) 1.8 X10'3 (1.1-4.8); LYMPHOCYTES % (AUTO) 26.6 % (21-51); MEAN CORPUSCULAR HEMOGLOBIN 28.6 PG (27.0-31.0); MEAN CORPUSCULAR HGB CONC 32.9 g/dL (33.0-36.5); MEAN CORPUSCULAR VOLUME 87.1 FL (78-98); MEAN PLATELET VOLUME 9.5 FL (7.4-10.4); MONOCYTES # (AUTO) 0.4 X10'3 (0-0.9); MONOCYTES % (AUTO) 5.9 % (2-12); NEUTROPHILS # (AUTO) 4.5 X10'3 (1.8-7.7); NEUTROPHILS % (AUTO) 65.7 % (42-75); PLATELET COUNT 214 X10'3 (140-440); WHITE BLOOD COUNT 6.8 X10'3 (4.5-11.0)
[2019-08-10 15:09] LABS: ALANINE AMINOTRANSFERASE 18 U/L (12-78); ALBUMIN 3.4 G/DL (3.4-5.0); ALKALINE PHOSPHATASE 70 IU/L (46-116); ANION GAP 5 (8-16); ASPARTATE AMINO TRANSFERASE 9 U/L (10-37); BILIRUBIN,TOTAL 0.3 MG/DL (0.1-1.0); BLOOD UREA NITROGEN 13 MG/DL (7-18); BUN/CREATININE RATIO 22.4 (6.6-38.0); CALCIUM 8.4 MG/DL (8.5-10.1); CHLORIDE 104 MMOL/L (99-107); CREATININE 0.58 MG/DL (0.40-0.90); GLUCOSE 99 MG/DL (70-104); SODIUM 141 MMOL/L (135-145); TOTAL CARBON DIOXIDE 32.2 MMOL/L (24-32); TOTAL PROTEIN 6.9 G/DL (6.4-8.2); eGFR > 90 ML/MIN
[2019-08-10 16:31] VITALS: BP 136/71
== END 2019-08-10 16:33 | disposition home or self-care (01) ==
LOC: ER 11:21
DX: E86.0 Dehydration (principal); G47.30 Sleep apnea, unspecified; Z98.890 Other specified postprocedural states; Z79.899 Other long term (current) drug therapy
CPT/HCPCS: 36415; 71045; 80053; 84484; 85025; 93005; 96360; 99284; J7030

== ENCOUNTER 2020-01-11 11:19 | Inpatient (IN) | payer MEDICARE, MEDICAID ==
[~2020-01-11] VITALS: Ht 165.1 cm; Wt 156.0 kg
[2020-01-11] MEDS ORDERED: magnesium hydroxide 30ml (MOM) UD suspension PO PRN (16:25)
[2020-01-11] MEDS ORDERED: LORazepam 1 MG tablet PO PRN (16:25)
[2020-01-11] MEDS ORDERED: mag hydrox/Alum hydrox/simeth 30ml oral suspension PO PRN (16:25)
[2020-01-11] MEDS ORDERED: acetaminophen 325mg tablet PO PRN ×2 (16:25)
[2020-01-11] MEDS ORDERED: loperamide 2mg capsule PO PRN (16:25)
[2020-01-11] MEDS ORDERED: diphenhydrAMINE 25mg capsule PO ONE (16:45)
[2020-01-11] MEDS ORDERED: LORazepam 1 MG tablet PO ONE (16:45)
[2020-01-11] MEDS ORDERED: haloperidol 5mg tablet PO ONE (16:45)
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
[2020-01-11] MEDS ORDERED: LORazepam 2 mg/ml vial IM ONE (19:55)
[2020-01-11] MEDS ORDERED: haloperidol lactate 5mg/ml inj IM ONE (19:55)
[2020-01-11] MEDS ORDERED: diphenhydrAMINE 50 mg/ml inj IM ONE (19:55)
[2020-01-11] MEDS ORDERED: diphenhydrAMINE 50 mg/ml inj ONE (20:05)
[2020-01-11] MEDS ORDERED: haloperidol lactate 5mg/ml inj ONE (20:05)
[2020-01-11] MEDS ORDERED: LORazepam 2 mg/ml vial ONE (20:08)
[2020-01-11] MEDS: potassium chloride 10mEq ER tablet PO SCH (20:28)
[2020-01-11] MEDS: mirtazapine 15mg tablet PO SCH (20:29)
[2020-01-11] MEDS: risperiDONE 0.5mg tablet PO SCH (20:29)
[2020-01-11] MEDS: furosemide 40mg tablet PO SCH (20:29)
--- NOTE | 2020-01-12 03:15 | NUR ---
Nursing Progress Note: Legal hold: 5150 Client on involuntary status for DTS. Report received from Rochelle CEDILLO, with use of SBAR. Why are they here: Pt admitted to [facility] bed 329 from [facility] at 1605. Pt arrived on the unit in a w/c accompanied by manager product marketing and security. Pt's home health nurse called 911 because pt became very dizzy during a panic attack. Pt was unwilling to cooperate with the formation of a safety plan and so was placed on a 5150 for DTS by [facility]. Pt is morbidly obese, Coco's reported weight was 156 kg. Pt has lymphedema, JAYDEN; per report does not use a CPAP and MDD. Pt has a hx of previous SA's sometime ago in the and when she was a teenager. She has been hospitalized in [facility] 4 times, the most recent one in 2019. Per report, pt had a UTI and was treated with IV Rocephin X 2 days which has now been changed to PO Keflex, culture pending. Assessment What has happened this shift: Patient in her room yelling about her dinner being cold and threatening to throw it at the beginning of shift. PCT offered to warm food up and she stated, "that'd do no good." PCT removed food from her bedroom and she began yelling at him to bring her food back. She proceeded to get out of her bed and refusing help fro staff while continuing to yell about food and insulting male staff by calling them "fat asses" and stating they have "small dicks." Patient was able to be redirected back to her bed by staff. PCT warmed her food and patient threw her food on the ground. She then began yelling at her LOS to get out of her bedroom and reporting to this telegraphic typewriter repairer "he is doing inappropriate things" and accusing him of being a "predator." Patient was initially non compliant with med rec but NGUYEN Doherty was able to complete with patient. Shortly after patient urinated in her bed and threw saturated linen at staff and insulting male staff again. CHRISTIANO Carrillo informed and ordered IM Haldol 10mg, Ativan 2mg and Benadryl 50mg. B52 administered by NGUYEN and this telegraphic typewriter repairer without incident and security on standby. Patient compliant with HS medication without incident. She denies SI, HI, A/VH. Patient able to explain panic attack lead her to [facility] by ambulance but reports she does not understand why she is placed on 5150 and transferred to [facility]. Unable to obtain VS and MRSA swab. S/I, H/I: Denies A/VH: Denies Sleep: Refer to sleep assessment ADL's: Needs assistance Group attendance: No groups this shift Were meds taken: Yes Any med S/E: None observed or reported Mental Status Exam Appearance: Disheveled, hospital gown hanging off her shoulder and exposing bare buttocks, malodorous Eye contact: Intense Behavior: Throwing food, throwing urine saturated linen, resisting care Speech: Pressured, escalated Mood: Agitated Affect: Labile Thought process: Accusatory Thought Content: Wants to leave, bored, insulting male staff and accusing them of harming her Cognition: Intact Insight: Poor Judgment: Poor Interventions PRN's used: IM Haldol 10mg, Ativan 2mg, Benadryl 50mg Therapeutic interventions: Introduced self and established rapport, ensured contract for safety, maintained a safe and therapeutic environment, provided clear and simple instructions, provided active listening and positive encouragement. Restraints/seclusion/emergency medication: Emergency medication Justification of Continued Inpatient Treatment: Patient requires interruption of current crisis, medication adjustments, and a safe and therapeutic environment.
--- NOTE | 2020-01-12 04:57 | NUR ---
CLIENT BEHAVIOR: This RN approached the clients room to complete the Med Rec. The client was yelling at two NA's. She yelled "you nigger!", "you have small penises!". On entering the room, the client was sitting with her back to the door and her gown was open. Food was spread on the floor next to the clients bed. The client stated, "There's food on my floor! I'm not cleaning it up!" This RN introduced herself and stated we needed to complete her Med Rec. The client said, "So what!" Initially she refused to confirm what medications she was on. When the client was informed no meds could be ordered without her cooperation the client provided answers. The client presents as demanding, hostile, and oppositional. She urinated on her bed and threw the soiled sheets at the NA.
[2020-01-12 07:36] VITALS: BP 121/56
[2020-01-12 08:00] VITALS: BP 121/56
[2020-01-12] MEDS: risperiDONE 0.5mg tablet PO SCH ×2 (08:00→20:23)
[2020-01-12] MEDS: furosemide 40mg tablet PO SCH ×2 (08:00→20:24)
[2020-01-12] MEDS: duloxetine 30mg CAPSULE.DR PO SCH (08:00)
[2020-01-12] MEDS: potassium chloride 10mEq ER tablet PO SCH ×2 (08:00→20:23)
[2020-01-12 12:35] LABS: HEMOGLOBIN A1C 5.4 % (4.5-6.2)
[2020-01-12 12:49] LABS: CHOL/HDL RATIO 4.3 (0.00-4.99); CHOLESTEROL 170 MG/DL (0-200); HDL CHOLESTEROL 40 MG/DL (35-60); LDL CHOLESTEROL 114 MG/DL (50-100); TRIGLYCERIDES 87 MG/DL (20-135)
--- NOTE | 2020-01-12 15:35 | NUR ---
DISCHARGE PLANNING-MARSHMALLOW MAKER 1:30 PM ON SAT Called [facility] (ph# [phone]) to arrange for transport home. They are scheduled to pick her up on Sat at 1:30 pm. ESTEPHANIE Wheeler
--- NOTE | 2020-01-12 16:58 | NUR ---
NURSING PROGRESS NOTE Legal hold: 5150 Client on involuntary status for DTS. Report received from NELL Rendon with use of SBAR. Why are they here: Pt admitted to [facility] bed 329 from [facility] at 1605. Pt arrived on the unit in a w/c accompanied by box sealing machine catcher and security. Pt's home health nurse called 911 because pt became very dizzy during a panic attack. Pt was unwilling to cooperate with the formation of a safety plan and so was placed on a 5150 for DTS by [facility]. Pt is morbidly obese, Coco's reported weight was 156 kg. Pt has lymphedema, JAYDEN; per report does not use a CPAP and MDD. Pt has a hx of previous SA's sometime ago in the and when she was a teenager. She has been hospitalized in [facility] 4 times, the most recent one in 2019. Per report, pt had a UTI and was treated with IV Rocephin X 2 days which has now been changed to PO Keflex, culture pending. Assessment What has happened this shift: The patient was asleep the entire shift. She was arousable and was able to follow directions and help turn herself during bed bath and zoila care. She was not awake enough to eat meals or to take medications. (CHRISTIANO Ingram is aware of sleepiness.) Patient was turn q2h and at times more often. VSS. No outbursts or aggressiveness today. S/I, H/I: unable to answer A/VH: unable to answer Sleep: slept all day ADL's: Needs assistance Group attendance: None Were meds taken: No, unable Any med S/E: None observed or reported Mental Status Exam Appearance: Disheveled Eye contact: none Behavior: Asleep Speech: grunts Mood: can not assess Affect: sleeping Thought process: unknown Thought Content: unable to assess Cognition: sleeping Insight: Poor Judgment: Poor Interventions PRN's used: None Therapeutic interventions: Introduced self and established rapport, ensured contract for safety, maintained a safe and therapeutic environment, provided clear and simple instructions, provided active listening and positive encouragement. Restraints/seclusion/emergency medication: None Justification of Continued Inpatient Treatment: Patient requires interruption of current crisis, medication adjustments, and a safe and therapeutic environment.
[2020-01-12 20:00] VITALS: BP 129/67
--- NOTE | 2020-01-12 20:10 | NUR ---
UA MMC: Spoke with RN (ED) at [facility]. Clients' UA was positive for E. Coli. Urine culture is pending. Client received Rocephin on 01/08 and 01/09. 500 mg Keflex Tab PO QID was started at [facility] and was not continued when client was admitted. The aforementioned medications were not included in the clients medical records from [facility]. The client did not report s/s of UTI to admitting RN. Nataly Mills NP ordered the Keflex to be restarted.
[2020-01-12] MEDS: cephalexin 500mg capsule PO SCH (20:23)
[2020-01-12] MEDS: nystatin 15 GM powder TP SCH ×2 (20:24→21:00)
[2020-01-12] MEDS: mirtazapine 15mg tablet PO SCH (20:24)
[2020-01-13] MEDS: cephalexin 500mg capsule PO SCH ×2 (02:02→08:24)
--- NOTE | 2020-01-13 04:05 | NUR ---
Nursing Progress Note: Legal hold: 5150 Client on involuntary status for DTS. Report received from Rochelle CEDILLO, with use of SBAR. Why are they here: Pt admitted to [facility] bed 329 from [facility] at 1605. Pt arrived on the unit in a w/c accompanied by business continuity consultant and security. Pt's home health nurse called 911 because pt became very dizzy during a panic attack. Pt was unwilling to cooperate with the formation of a safety plan and so was placed on a 5150 for DTS by [facility]. Pt is morbidly obese, Coco's reported weight was 156 kg. Pt has lymphedema, JAYDEN; per report does not use a CPAP and MDD. Pt has a hx of previous SA's sometime ago in the and when she was a teenager. She has been hospitalized in [facility] 4 times, the most recent one in 2019. Per report, pt had a UTI and was treated with IV Rocephin X 2 days which has now been changed to PO Keflex, culture pending. Assessment What has happened this shift: Patient observed sleeping at the beginning of shift. Patient woke irritable with LOS staff being in her bedroom and was easily deescalated with staff sitting outside of her bedroom. She was provided her dinner but did not eat measurable amount and ate a burrito instead. Patient talked on the phone briefly this shift. She was pleasant and cooperative with majority of care, impulsive at times. Patient attempted to get out of bed on her own on several occasions, stating, "I got to go home" but easily redirected by sheet writer. Managing Partner [employer] explained D/C plan was to have [facility] pick her up around 1330 next shift and she appeared happy about plan but continues to "want to leave now." One of the times the patient woke she reported "there are bugs in my bed; don't let them get me." Managing Partner [employer] explained there aren't any bugs and while she was sitting up was shown there weren't any there and laid back down. Patient provided zoila care, gown and linen change x2 d/t urine incontinence. Inner thighs and pannus reddened with some open spots toward R side pannus; area cleaned and Nystop applied. Patient cooperative repositioning with staff assist throughout the shift. Patient denies SI, HI, A/VH but appears depressed. Heriberto ALVARADO able to speak with patient this shift. Keflex started for UTI per Yaw this shift with no ASE observed or reported. UA positive for E. Coli and culture remains pending at [facility]. Compliant with all medication. S/I, H/I: Denies A/VH: Denies Sleep: Refer to sleep assessment ADL's: Needs assistance Group attendance: No groups this shift Were meds taken: Yes Any med S/E: None observed or reported Mental Status Exam Appearance: Disheveled, hospital gown, malodorous Eye contact: Good Behavior: Cooperative, impulsive, talked on phone Speech: Pressured, escalated Mood: Depressed Affect: Congruent Thought process: Perseverating Thought Content: Discharge Cognition: Intact Insight: Fair Judgment: Poor Interventions PRN's used: None Therapeutic interventions: Introduced self and established rapport, ensured contract for safety, maintained a safe and therapeutic environment, provided clear and simple instructions, provided active listening and positive encouragement. Restraints/seclusion/emergency medication: None Justification of Continued Inpatient Treatment: Patient requires interruption of current crisis, medication adjustments, and a safe and therapeutic environment.
[2020-01-13 08:00] VITALS: BP 133/67
[2020-01-13] MEDS: potassium chloride 10mEq ER tablet PO SCH (08:24)
[2020-01-13] MEDS: risperiDONE 0.5mg tablet PO SCH (08:24)
[2020-01-13] MEDS: duloxetine 30mg CAPSULE.DR PO SCH (08:24)
[2020-01-13] MEDS: nystatin 15 GM powder TP SCH (08:25)
[2020-01-13] MEDS: furosemide 40mg tablet PO SCH (08:25)
[2020-01-13] MEDS ORDERED: NYSPWD TP (11:25)
[2020-01-13] MEDS ORDERED: ATI1T PO (11:25)
[2020-01-13] MEDS ORDERED: CEPH500C5 PO (11:25)
--- NOTE | 2020-01-13 11:38 | NUR ---
DCP Presenting Issues: Pt is desiring to go home, SS met w/pt and assessed her readiness for d/c. Pt denies any current SI, Thoughts of suicide, any preparation thoughts/activities, and has had no suicidal behaviors w/in past year. Interventions: SS engaged pt in dcp activities, pt agreed to f/u with [facility] for follow-up care and agreed to allow SS to contact her SS & providers to resume services for her. Plan: Pt to d/c this afternoon transported by [facility]. Navya Dodd LCSW Addendum: 01/13/20 at 1154 by Navya Dodd Amended: Links added.
--- NOTE | 2020-01-13 13:44 | NUR ---
Patient off unit at 1330 via [facility] and BALTAZAR Marcus. Client is happy to be going home. She has her prescriptions. She was provided with nicotine cessation education. She went home with all of her belongings.
== END 2020-01-13 13:30 | disposition home or self-care (01) | DRG 885 ==
LOC: ADULT MH 11:19
PROVIDERS: ADMIT Psychiatry & Neurology Psychiatry; ATTEND Family Medicine
DX: F31.9 Bipolar disorder, unspecified (principal); N39.0 Urinary tract infection, site not specified; Z68.43 Body mass index [BMI] 50.0-59.9, adult; G89.4 Chronic pain syndrome; F60.3 Borderline personality disorder; F06.4 Anxiety disorder due to known physiological condition; R32 Unspecified urinary incontinence; G47.33 Obstructive sleep apnea (adult) (pediatric); B96.20 Unspecified Escherichia coli [E. coli] as the cause of diseases classified elsewhere; E66.01 Morbid (severe) obesity due to excess calories; F39 Unspecified mood [affective] disorder
CPT/HCPCS: 36415; 80061; 83036; 99285; J1200; J1630; J2060; Q0163

== ENCOUNTER 2021-05-08 09:30 | Day surgery (SDC) | payer MEDICARE, MEDICAID ==
[2021-05-01 16:19] LABS: BASOPHILS % (AUTO) 0.6 % (0-1); EOSINOPHILS # (AUTO) 0.1 X10'3 (0-0.9); EOSINOPHILS % (AUTO) 0.7 % (0-6); LYMPHOCYTES % (AUTO) 26.7 % (21-51); MEAN CORPUSCULAR HEMOGLOBIN 29.1 PG (27.0-31.0); MEAN CORPUSCULAR HGB CONC 33.1 g/dL (33.0-36.5); MEAN PLATELET VOLUME 9.5 FL (7.4-10.4); MONOCYTES # (AUTO) 0.4 X10'3 (0-0.9); MONOCYTES % (AUTO) 5.6 % (2-12); NEUTROPHILS # (AUTO) 5.1 X10'3 (1.8-7.7); NEUTROPHILS % (AUTO) 66.4 % (42-75); PRE OP HEMATOCRIT 43.2 % (35.0-45.0); PRE OP HEMOGLOBIN 14.3 g/dL (12.0-16.0); PRE OP PLATELET COUNT 209 X10'3 (140-440); RED BLOOD COUNT 4.91 X10'6 (4.20-5.60); RED CELL DISTRIBUTION WIDTH 13.4 % (11.5-14.5)
[2021-05-01 16:47] LABS: ALBUMIN 3.1 G/DL (3.4-5.0); ALBUMIN/GLOBULIN RATIO 0.7 (1.1-1.5); ALKALINE PHOSPHATASE 92 IU/L (46-116); BLOOD UREA NITROGEN 9 MG/DL (7-18); BUN/CREATININE RATIO 11.5 (6.6-38.0); CALCIUM 8.4 MG/DL (8.5-10.1); CHLORIDE 105 MMOL/L (99-107); CREATININE 0.78 MG/DL (0.40-0.90); PRE OP ALT 13 U/L (30-65); PRE OP ANION GAP 9 (8-16); PRE OP AST 9 U/L (10-37); PRE OP BILIRUB, TOTAL 0.3 MG/DL (0.0-1.0); PRE OP GLUCOSE 100 MG/DL (70-104); PRE OP POTASSIUM 4.2 MMOL/L (3.4-5.1); PRE OP SODIUM 142 MMOL/L (135-145); TOTAL CARBON DIOXIDE 27.8 MMOL/L (24-32); TOTAL PROTEIN 7.5 G/DL (6.4-8.2); eGFR 78 ML/MIN
[2021-05-08] VITALS (18 sets, daily range): BP systolic 120–171; BP diastolic 64–95
[~2021-05-08] VITALS: Ht 167.6 cm; Wt 163.7 kg
[~2021-05-08 09:30] MED LIST changes: +CLON-369 PO; -CLON0.5T4 PO; +COLL30OI TOP; +DULO60CA45 PO; -DULO60CA65 PO; +KEP500T PO; -MIRT30TA8 PO; +NYSPWD TOP; +OMEP40CA21 PO; +TRAM50TA2 PO; +TRAZ-256 PO; +famotidine 20mg tablet PO ONE; +ringers solution, lacted 1,000 ML IV SCH
[2021-05-08] MEDS ORDERED: sevoflurane 250ml liquid IH ONE (12:22)
[2021-05-08] MEDS ORDERED: rocuronium 10mg/ml inj IV ONE (12:22)
[2021-05-08] MEDS ORDERED: fentaNYL/PF 50MCG/1 ML 2ML syringe ONE (12:27)
[2021-05-08] MEDS ORDERED: midazolam 1 mg/ML 2ml injection ONE (12:28)
[2021-05-08] MEDS ORDERED: propofol inj 20 ML IV ONE (12:29)
[2021-05-08] MEDS ORDERED: sugammadex 200mg/2ml injection IV ONE (12:58)
[2021-05-08] MEDS ORDERED: oxyCODONE/APAP 5-325mg tablet PO ONE ×2 (13:10)
--- NOTE | 2021-05-08 13:18 | NUR ---
Received from OR via SANDI , accompanied by Anesthesiologist SIRIA and report given by Anesthesiolgist. PATIENT WITH 20G PIV IN RIGHT HAND RUNNING LR AT 100. VSS AT THIS TIME. SCDS ON. PATIENT WITH 10L MASK ON WITH 100% SATURATIONS AT THIS TIME. STATES "A LITTLE PAIN." WILL CONTINUE TO ASSESS. MEDICATED FOR PAIN. PATIENT STATES 03/25 AND DESCRIBES HER PAIN A "LITTLE". WILL MEDICATE AND REASSESS. Addendum: 05/08/21 at 1331 by Foster Werner RN, RN Amended: Links added.
[2021-05-08] MEDS ORDERED: ondansetron/PF 4mg/2ml inj IV PRN ×2 (14:20→14:55)
[2021-05-08] MEDS ORDERED: meperidine/PF 25mg/ml syringe IV PRN ×3 (14:20)
[2021-05-08] MEDS ORDERED: proCHLORperazine 10 MG/2 ml inj IV PRN (14:20)
[2021-05-08] MEDS ORDERED: ringers solution, lacted 1,000 ML IV SCH (14:20)
[2021-05-08] MEDS ORDERED: morphine 4 MG/ML inj SYRINge IV PRN (14:20)
[2021-05-08] MEDS ORDERED: morphine 2 MG/ML inj. syringe IV PRN (14:20)
--- NOTE | 2021-05-08 14:24 | NUR ---
SEVERAL ATTEMPTS TO ROUSE PATIENT HAVE BEEN UNSUCCESSFUL. PATIENT WILL NOT CONSISTENTLY FOLLOW COMMANDS OR ANSWER QUESTIONS. MINIMAL PAIN MEDICATIONS HAVE BEEN GIVEN IN ATTEMPTS TO WAKE PATIENT. PATIENT AT THIS TIME IS UNSAFE TO GO HOME. HAS NO SUPPORT, WOULD REQUIRE TO BE ON CPAP AT HOME. PATIENT ONLY RIDE IS A TRANSPORT COMPANY AND PATIENT IS NON PARTICIPATORY IN HER CARE AT THIS TIME. WILL SPEAK TO MD HUNTER ABOUT POTENTIAL SAFETY HAZARDS AND IF PATIENT IS CAPABLE TO GO HOME. Addendum: 05/08/21 at 1428 by Foster Cat - KAILASH LINDER Amended: Links added.
[2021-05-08] MEDS ORDERED: oxyCODONE/APAP 5-325mg tablet PO PRN (14:55)
[2021-05-08] MEDS ORDERED: LORazepam 2 mg/ml vial IV PRN (14:55)
[2021-05-08] MEDS ORDERED: mag hydrox/Alum hydrox/simeth 30ml oral suspension PO PRN (14:55)
[2021-05-08] MEDS ORDERED: temazepam 15mg capsule PO PRN (14:55)
[2021-05-08] MEDS ORDERED: ketorolac trometh. 30mg/ml inj. IV PRN (14:55)
[2021-05-08] MEDS ORDERED: diphenhydrAMINE 50 mg/ml inj IV PRN (14:55)
[2021-05-08] MEDS ORDERED: traMADol 50MG tablet PO PRN (15:30)
[2021-05-08] MEDS ORDERED: clonazePAM 0.5mg tablet PO PRN (15:30)
--- NOTE | 2021-05-08 15:36 | NUR ---
Report called to receiving nurse. Transferred via [facility] WITH ONE BAG OF Belongings . Special Issues communicated to receiving nurse ARIELA. ALL DC CRITERIA HAS BEEN MET. VSS. 4 PERSON PASSIVE TRANSFER FROM [facility] TO BED. Addendum: 05/08/21 at 1623 by Foster Werner RN RN Amended: Links added.
--- NOTE | 2021-05-08 15:45 | NUR ---
Patient arrived to floor. no complaints. VSS. resting comfortably.
[2021-05-08] MEDS: ringers solution, lacted 1,000 ML IV SCH ×2 (16:22→21:37)
[2021-05-08] MEDS ORDERED: simethicone 80mg chew tab PO SCH (18:00)
--- NOTE | 2021-05-08 18:29 | NUR ---
Problems reprioritized. Patient report given, questions answered & plan of care reviewed with KAILASH Alcazar.
--- NOTE | 2021-05-08 18:32 | NUR ---
Patient in room [facility] 354. I have received report from NATHAN LINDER and had the opportunity to ask questions and assume patient care.
[2021-05-08] MEDS ORDERED: traZODone 50mg tablet PO SCH (21:00)
--- NOTE | 2021-05-08 21:00 | NUR ---
PATIENT BECAME AGITATED, WANTING TO GO AMA WHEN SANDWICH WAS GIVEN BECAUSE SHE WANTED A "REAL DINNER" NURSING SUP WENT TO DIETARY DEPT TO PREPARE DINNER FOR PATIENT. PATIENT REFUSED TO EAT WHEN DINNER CAME STILL AGITATED REFUSED SKIN CHECK AND REFUSED NASAL SWAB FOR NOW AND EVEN TRIED TO PULL HER IV OUT.
[2021-05-08] MEDS: levetiracetam 250mg tablet PO SCH (21:44)
[2021-05-08] MEDS: docusate sod 100mg capsule PO SCH (21:45)
[2021-05-08] MEDS: potassium chloride 10mEq ER tablet PO SCH (21:45)
[2021-05-08] MEDS: furosemide 40mg tablet PO SCH (21:45)
--- NOTE | 2021-05-08 23:00 | NUR ---
PATIENT CALMER AFTER GIVEN HER PAIN MEDICINE AND NAUSEA MEDICINE, AND WAS ABLE TO SLEEP.
[2021-05-09] VITALS: BP 111/57
--- NOTE | 2021-05-09 06:30 | NUR ---
Problems reprioritized. Patient report given, questions answered & plan of care reviewed with NEGRITA LINDER.
--- NOTE | 2021-05-09 06:45 | NUR ---
Patient in room SURG 354A. I have received report from BOBBY ROSALES RN and had the opportunity to ask questions and assume patient care.
[2021-05-09 07:00] VITALS: BP 149/81
[2021-05-09] MEDS ORDERED: pantoprazole 40mg Tablet.DR PO SCH (07:30)
[2021-05-09] MEDS ORDERED: nystatin 15 GM powder TP SCH (08:00)
[2021-05-09] MEDS ORDERED: non-formulary drug (Collagenase Oint* (Santyl Oint*) 1 APPLIC) TOP SCH (08:00)
[2021-05-09] MEDS ORDERED: duloxetine 30mg CAPSULE.DR PO SCH (08:00)
[2021-05-09] MEDS ORDERED: risperiDONE 0.5mg tablet PO SCH (08:00)
[2021-05-09] MEDS: docusate sod 100mg capsule PO SCH (09:48)
[2021-05-09] MEDS: furosemide 40mg tablet PO SCH (09:48)
[2021-05-09] MEDS: potassium chloride 10mEq ER tablet PO SCH (09:48)
[2021-05-09] MEDS: levetiracetam 250mg tablet PO SCH (09:49)
--- NOTE | 2021-05-09 10:00 | NUR ---
Patient is alert and oriented patient does not want to open her eyes but is capable when asked. Patient is able to answer questions does not use a walker at home and is able to transfer to chair and get around apartment. Adriana spoke with patients [facility] worker Georgina that states patient gets around ok at home and was in agreement to go and check on the patient today. Primary RN Keily borges. Adriana has arranged transportation home at 1300 today.
[2021-05-09 11:00] VITALS: BP 137/77
--- NOTE | 2021-05-09 15:20 | NUR ---
PATIENT STABLE AND APPROPRIATE FOR DISCHARGE, IV TAKEN OUT, EDUCATION GIVEN, ALL BELONGINGS INCLUDING A WALKER SENT WITH PATIENT, RIDE ARRANGED THROUGH [facility] PATIENT WAS TAKEN HOME BY [facility] STAFF, CAREGIVER TO MEET PATIENT AT HOME
== END 2021-05-09 15:35 | disposition home or self-care (01) ==
LOC: PRE-OP 09:30 → SUR 3N 15:58 → PRE-OP 05-09 15:35
PROVIDERS: ATTEND Obstetrics & Gynecology
DX: N95.0 Postmenopausal bleeding (principal); K21.9 Gastro-esophageal reflux disease without esophagitis; F41.9 Anxiety disorder, unspecified; F43.10 Post-traumatic stress disorder, unspecified; F31.9 Bipolar disorder, unspecified; G47.30 Sleep apnea, unspecified; E66.01 Morbid (severe) obesity due to excess calories; Z68.43 Body mass index [BMI] 50.0-59.9, adult; Z79.899 Other long term (current) drug therapy; Z98.890 Other specified postprocedural states; Z20.822 Contact with and (suspected) exposure to COVID-19
CPT/HCPCS: 36415; 58558; 80053; 82948; 85025; 86885; 86900; 86901; C9399; J1885; J2060; J2250; J2405; J2704; J3010; U0003; U0005; Z7506; Z7512; 88305; A4355; A4618; A6258; G0378; J7120

== ENCOUNTER 2021-08-22 18:16 | Emergency (ER) | payer MEDICARE ==
[~2021-08-22] VITALS: Ht 167.6 cm; Wt 170.0 kg
[~2021-08-22 18:16] MED LIST changes: -DULO60CA45 PO; +DULO60CA59 PO; -POTA10TA36 PO; +POTA10TA37 PO; -famotidine 20mg tablet PO ONE; -ringers solution, lacted 1,000 ML IV SCH
[2021-08-22] MEDS ORDERED: dextrose ORAL solution 15 GM/59 ML bottle ONE (18:53)
[2021-08-22] MEDS ORDERED: LORazepam 1 MG tablet PO ONE (19:30)
[2021-08-22] MEDS ORDERED: MEDR10TA10 PO (20:05)
[2021-08-22] MEDS ORDERED: CIPR500T5 PO (20:05)
[2021-08-22] MEDS ORDERED: DOXY-224 PO (20:05)
[2021-08-22] MEDS ORDERED: dextrose 5%-normal saline 1,000 ML IV ONE (20:10)
[2021-08-22 20:23] LABS: BASOPHILS % (AUTO) 0.4 % (0-1); EOSINOPHILS # (AUTO) 0.1 X10'3 (0-0.9); EOSINOPHILS % (AUTO) 0.9 % (0-6); HEMATOCRIT 41.3 % (35.0-45.0); HEMOGLOBIN 13.7 g/dl (12.0-16.0); LYMPHOCYTES # (AUTO) 2.1 X10'3 (1.1-4.8); LYMPHOCYTES % (AUTO) 25.3 % (21-51); MEAN CORPUSCULAR HEMOGLOBIN 29.3 PG (27.0-31.0); MEAN CORPUSCULAR HGB CONC 33.2 g/dL (33.0-36.5); MEAN CORPUSCULAR VOLUME 88.1 FL (78-98); MEAN PLATELET VOLUME 9.8 FL (7.4-10.4); MONOCYTES # (AUTO) 0.5 X10'3 (0-0.9); MONOCYTES % (AUTO) 5.9 % (2-12); NEUTROPHILS # (AUTO) 5.7 X10'3 (1.8-7.7); NEUTROPHILS % (AUTO) 67.5 % (42-75); PLATELET COUNT 207 X10'3 (140-440); RED BLOOD COUNT 4.69 X10'6 (4.20-5.60); RED CELL DISTRIBUTION WIDTH 13.8 % (11.5-14.5); WHITE BLOOD COUNT 8.5 X10'3 (4.5-11.0)
[2021-08-22 20:32] LABS: ALANINE AMINOTRANSFERASE 15 U/L (12-78); ALBUMIN 3.4 G/DL (3.4-5.0); ALBUMIN/GLOBULIN RATIO 0.9 (1.1-1.5); ALKALINE PHOSPHATASE 89 IU/L (46-116); ANION GAP 7 (8-16); ASPARTATE AMINO TRANSFERASE 9 U/L (10-37); BILIRUBIN,TOTAL 0.4 MG/DL (0.1-1.0); BLOOD UREA NITROGEN 12 MG/DL (7-18); BUN/CREATININE RATIO 16.2 (6.6-38.0); CALCIUM 9.1 MG/DL (8.5-10.1); CHLORIDE 102 MMOL/L (99-107); CREATININE 0.74 MG/DL (0.40-0.90); GLUCOSE 138 MG/DL (70-104); POTASSIUM 3.8 MMOL/L (3.5-5.1); SODIUM 138 MMOL/L (135-145); TOTAL CARBON DIOXIDE 29.2 MMOL/L (24-32); TOTAL PROTEIN 7.4 G/DL (6.4-8.2); eGFR 82 ML/MIN
[2021-08-22 20:39] LABS: ETHANOL < 0.010 GM/DL (0.0-0.010)
--- NOTE | 2021-08-22 21:16 | NUR ---
pt able to get up to bsc for urine sample with 1 person assist.
[2021-08-22 21:19] LABS: CLARITY,URINE SLIGHTLY CLOUDY (Clear); COLOR,URINE YELLOW (Yellow); GLUCOSE, URINE NEGATIVE (Neg); KETONES,URINE NEGATIVE (Neg); LEUKOCYTE ESTERASE ,URINE SMALL (Neg); NITRITES, URINE NEGATIVE (Neg); OCCULT BLOOD,URINE NEGATIVE (Neg); PROTEIN,URINE 30 mg/dl (Neg); UROBILINOGEN,URINE 0.2 E.U/dL (0.2-1.0)
[2021-08-22 21:31] LABS: URINE AMPHETAMINE SCREEN NEGATIVE (Neg); URINE BARBITUATE SCREEN NEGATIVE (Neg); URINE BENZODIAZEPINES SCREEN NEGATIVE (Neg); URINE CANNABINOID SCREEN NEGATIVE (Neg); URINE COCAINE SCREEN NEGATIVE (Neg); URINE METHADONE SCREEN NEGATIVE (Neg); URINE OPIATE SCREEN NEGATIVE (Neg); URINE PHENCYCLIDINE SCREEN NEGATIVE (Neg)
[2021-08-22 21:32] LABS: UA COLLECTION TYPE VOIDED
[2021-08-22 21:34] LABS: BACTERIA,URINE 2+ /HPF (Neg); MUCUS STRANDS MODERATE /LPF (Neg); RBC,URINE NONE SEEN /HPF (0-2); SQUAMOUS EPITHELIAL CELL,UR MODERATE /LPF (FEW); WBC,URINE 20-30 /HPF (0-4)
--- NOTE | 2021-08-22 21:59 | NUR ---
Received report from KAILASH Fitzgerald. Patient reported as a failure to thrive. Poor intake.
[2021-08-22] MEDS ORDERED: LORazepam 2 mg/ml vial IV ONE (22:25)
--- NOTE | 2021-08-22 22:25 | NUR ---
Patient moved to overflow hospital bed. Patient is well oriented, she is crying, states she is not suicidal. Patient expresses grief about her mother, brother, and sisters deaths, the familly home being sold. This patient is becoming more upset. Dr. Prescott contacted. Orders for Ativan 1mg IV.
[2021-08-22] MEDS ORDERED: traMADol 50MG tablet PO PRN ×2 (22:45→22:55)
--- NOTE | 2021-08-22 22:45 | NUR ---
This patient was given Ativan 1mg IV in the right External Jugular IV. A few minutes prior to this the patient attempted to pull out her IJ Saline lock, she also attempted to throw her 170 Kg frame out of bed onto the floor.
--- NOTE | 2021-08-22 22:47 | NUR ---
Following Ativan 1 mg IV this patient has fallen asleep. Her bed is in a mid fowlers position. She is in view from the nurses station. Frequent rounding and close observation are in place for patient safety.
--- NOTE | 2021-08-22 23:28 | NUR ---
Patient is sleeping quietly, low fowlers position in bed. Oceana, warm, dry, no distress noted.
--- NOTE | 2021-08-22 23:53 | NUR ---
Possible asymptomatic UTI, Dr. Andersen is stating no treatment at this time, we will await culture results.
--- NOTE | 2021-08-23 01:06 | NUR ---
Patient is sleeping, low fowlers position in bed. Patient moans in her sleep. In view from nurses station. Two rails up.
--- NOTE | 2021-08-23 02:01 | NUR ---
Patient is sleeping quietly, low fowlers position in bed. Browning, warm, cirilo, no distress noted.
[2021-08-23] MEDS ORDERED: OLANZapine 5mg rapidly disint. tablet PO ONE (03:35)
--- NOTE | 2021-08-23 03:45 | NUR ---
Patient awoke, moaning, irrational, attempting to crawl over the rails of bed. Patient given Zyprexa ODT.
[2021-08-23] MEDS ORDERED: LORazepam 2 mg/ml vial IV ONE (03:55)
--- NOTE | 2021-08-23 04:03 | NUR ---
Patient did not respond to Zyprexa, Dr. Andersen consulted. Order for Ativan 1 mg IV. Patient remaind combative, she stated "I have to get out of here to take care of my mother!" Patient attempts to climb over rail and pull out IV. Ativan given IV. Patient calms and returns to sleep. Patient will be closely observed for patient safety. SaO2 is 98 percent on room air. Pulse rate is 71, resp 14.
--- NOTE | 2021-08-23 05:42 | NUR ---
Patient is sleeping quietly in a mid fowlers position.
--- NOTE | 2021-08-23 05:50 | NUR ---
PATIENT'S PACKET WAS SENT TO [facility].
--- NOTE | 2021-08-23 07:17 | NUR ---
patient moved to bed 13,in a hospital bed.We will monitor.
--- NOTE | 2021-08-23 07:41 | NUR ---
patient needs to be medically cleared per [facility], Dr. Sahni made aware.
--- NOTE | 2021-08-23 09:42 | NUR ---
patient asleep, holding morning meds until patient ready to take meds.refused breakfast at this time.
--- NOTE | 2021-08-23 10:57 | NUR ---
patient still sleepy but arousable to name.v/s stable,we will monitor.
--- NOTE | 2021-08-23 12:18 | NUR ---
[facility] here but unable to speak to patient since still sleepy, pt is arousable to name.
[2021-08-23] MEDS: pantoprazole 40mg Tablet.DR PO SCH (13:44)
[2021-08-23] MEDS: medroxyprogesterone acet. 2.5mg tablet PO SCH (13:45)
[2021-08-23] MEDS: duloxetine 30mg CAPSULE.DR PO SCH (13:45)
[2021-08-23] MEDS: risperiDONE 2mg tablet PO SCH (13:45)
[2021-08-23] MEDS: ciprofloxacin 250mg tablet PO SCH ×2 (13:45→20:00)
[2021-08-23] MEDS: nystatin 15 GM powder TP SCH (13:46)
[2021-08-23] MEDS: levetiracetam 250mg tablet PO SCH ×2 (13:46→20:19)
[2021-08-23] MEDS: potassium chloride 10mEq ER tablet PO SCH (13:46)
[2021-08-23] MEDS: furosemide 40mg tablet PO SCH ×2 (13:46→20:19)
--- NOTE | 2021-08-23 14:45 | NUR ---
patient voided in bed,shorts soaked and wet.assisted to bsc so RN can change bed linen,patient changed into a gown,given a sponge bath, nystatin powder under breasts and abdominal folds.Due medications given.BG 84,tech assisted patient with meal.
--- NOTE | 2021-08-23 15:41 | NUR ---
sc[facility] at bedside,patient asleep.
--- NOTE | 2021-08-23 17:49 | NUR ---
patient asleep.respirations regular.
[2021-08-23] MEDS ORDERED: insulin Lispro (HumaLOG) vial - multi-dose SQ SCH (17:50)
[2021-08-23] MEDS ORDERED: glucagon, human recombinant 1mg kit SUBCUT PRN (17:50)
[2021-08-23] MEDS ORDERED: MESSAGE TO PHARMACY PO ONE (17:50)
[2021-08-23] MEDS ORDERED: dextrose ORAL solution 15 GM/59 ML bottle PO PRN ×2 (17:50)
[2021-08-23] MEDS ORDERED: dextrose 50%-water 50ml dispensing syringe IV PRN ×2 (17:50)
--- NOTE | 2021-08-23 19:00 | NUR ---
The patient moved to bed 20 in the ER. BS 71 and meal given. She denies that she is suicidal or hearing voices. Her affect is flat. Speach is soft and monotone. She reports racing thoughts.
[2021-08-23] MEDS: lactobacillus rhamnosus 10,000 MMU CELLS/CAPSULE PO SCH (20:19)
[2021-08-23] MEDS: insulin glargine (Lantus) pen - multi-dose SQ SCH (20:20)
[2021-08-23] MEDS ORDERED: DOXYCYCLINE 100MG CAPSULE PO SCH (21:00)
--- NOTE | 2021-08-23 21:00 | NUR ---
The patient appears to be sleeping. She did take her evening meds without difficulty
--- NOTE | 2021-08-23 22:45 | NUR ---
The patient was incontinent of urine. She was assisted up to the bedside commode and with linen change.
--- NOTE | 2021-08-24 00:07 | NUR ---
The patient appears to be sleeping
[2021-08-24] MEDS: clonazePAM 0.5mg tablet PO PRN ×2 (01:03→19:23)
--- NOTE | 2021-08-24 01:06 | NUR ---
The patient is making statements that she has to leave. Mumbling. She was made aware that she is on a 5150 hold.
--- NOTE | 2021-08-24 01:20 | NUR ---
The patient attempted to pull out IJ and then began to repeatedly hit herself. PO meds given but patient unable to be safe and her wrists were restrained for her safety. Discussed patient behavior with MD, Dr Andersen.
--- NOTE | 2021-08-24 02:21 | NUR ---
The patient appears to be sleeping and restraints removed
--- NOTE | 2021-08-24 04:27 | NUR ---
The patient appears to be sleeping
--- NOTE | 2021-08-24 07:00 | NUR ---
Received Pt in bed sleeping w/o distress.
--- NOTE | 2021-08-24 07:00 | NUR ---
Received Pt in bed sleeping w/o distress at this time.
[2021-08-24] MEDS: nystatin 15 GM powder TP SCH (08:00)
--- NOTE | 2021-08-24 08:13 | NUR ---
KAILASH OSMAN MADE AWARAE PATIENT TO BE ON CONTACT ISOLATION PER URINE CULTURE RESULTED +[facility]. DR GALINDO MADE AWARE.
--- NOTE | 2021-08-24 09:00 | NUR ---
Note undone in [facility] - 08/24/21 at 1029 by DSALVATO Pt woke to use bathroom and ate breakfast. Pt pleasant and cooperative. Pt took AM meds w/o issue. Pts Donepezil and Estradoil Ptch not available. MD kyree Romero to start tonite. Addendum: 08/24/21 at 1025 by DSALVATO Amendment tierraone in [facility] - 08/24/21 at 1029 by DSALVATO Correction to note: Pts Provera and cipro unavailable.
[2021-08-24] MEDS: potassium chloride 10mEq ER tablet PO SCH (09:22)
[2021-08-24] MEDS: furosemide 40mg tablet PO SCH ×2 (09:22→19:23)
[2021-08-24] MEDS: pantoprazole 40mg Tablet.DR PO SCH (09:22)
[2021-08-24] MEDS: risperiDONE 2mg tablet PO SCH (09:22)
[2021-08-24] MEDS: levetiracetam 250mg tablet PO SCH ×2 (09:22→19:23)
[2021-08-24] MEDS: lactobacillus rhamnosus 10,000 MMU CELLS/CAPSULE PO SCH ×2 (09:22→19:23)
[2021-08-24] MEDS: duloxetine 30mg CAPSULE.DR PO SCH (09:23)
--- NOTE | 2021-08-24 10:00 | NUR ---
Woke Pt and gave meds which she took w/o issue. Pt up to comode to urinate and gown and bed changed as Pt was incontinent of urine. Pt's breakfast was warmed and she ate. Pt wants to go home and has forgotted that she was on a 5150 hold.
[2021-08-24] MEDS: medroxyprogesterone acet. 2.5mg tablet PO SCH (12:06)
--- NOTE | 2021-08-24 13:00 | NUR ---
Pt's blood sugar was 120 before lunch. Pt irritable about having to stay in [facility] and wants to go home. Pt did not eat luch and complained about the food.
--- NOTE | 2021-08-24 15:00 | NUR ---
Pt sleeping w/o distress.
--- NOTE | 2021-08-24 18:48 | NUR ---
One to one with the patient who was depressed and tearful when talking about the loss of her family members. She denies that she feels suicidal and stated she did not remember saying that she was. She was updated on the plan of care.
--- NOTE | 2021-08-24 19:42 | NUR ---
The patient is laying on her bed with her eyes closed. She is not responding. Her color is pink. Her O2 sats are 100% and her BP and HR are WNL.
[2021-08-24] MEDS ORDERED: cephalexin 500mg capsule PO ONE (20:00)
--- NOTE | 2021-08-24 20:12 | NUR ---
THe patient is now awake and stated "I don't know what happened...I disassociate"
[2021-08-24] MEDS: insulin glargine (Lantus) pen - multi-dose SQ SCH (21:00)
--- NOTE | 2021-08-24 22:37 | NUR ---
The patient appears to be sleeping
--- NOTE | 2021-08-25 00:02 | NUR ---
The patient appears to be sleeping
--- NOTE | 2021-08-25 01:58 | NUR ---
The patient appears to be sleeping but she is talking in her sleep and occassionally snoring
--- NOTE | 2021-08-25 03:43 | NUR ---
The patient appears to be sleeping
--- NOTE | 2021-08-25 05:38 | NUR ---
The patient is resting on her bed
--- NOTE | 2021-08-25 06:41 | NUR ---
Pt awake and inquiring to make phone calls as pt concerned about her pets at home. Pt reminded of time and will arrange for her to make phone calls per hospital policy.
[2021-08-25] MEDS: pantoprazole 40mg Tablet.DR PO SCH (08:34)
[2021-08-25] MEDS: medroxyprogesterone acet. 2.5mg tablet PO SCH (08:34)
[2021-08-25] MEDS: lactobacillus rhamnosus 10,000 MMU CELLS/CAPSULE PO SCH ×2 (08:34→20:11)
[2021-08-25] MEDS: risperiDONE 2mg tablet PO SCH (08:34)
[2021-08-25] MEDS: duloxetine 30mg CAPSULE.DR PO SCH (08:35)
[2021-08-25] MEDS: potassium chloride 10mEq ER tablet PO SCH (08:35)
[2021-08-25] MEDS: levetiracetam 250mg tablet PO SCH ×2 (08:35→20:11)
[2021-08-25] MEDS: nystatin 15 GM powder TP SCH (08:35)
[2021-08-25] MEDS: furosemide 40mg tablet PO SCH ×2 (08:35→20:11)
--- NOTE | 2021-08-25 12:47 | NUR ---
CLERK TELEVISION PRODUCTION FROM [facility] MELISSA KASSIE HERE TO VISIT PT [phone]. MELISSA WILL NEED TO BE CONTACTED BEFORE DISCHARGE SINCE SHE HAS THE PT'S KEYS TO HER HOME.
--- NOTE | 2021-08-25 18:01 | NUR ---
PT'S CLOSE CONTACTS: GREGORIA (SS WORKER): [phone] LUISA (FRIEND): [phone] JOSUE (FRIEND): [phone]
--- NOTE | 2021-08-25 18:47 | NUR ---
One to one with the patient. She was pleasant but sad. She denies that she feels suicidal and she wants to go home to be her animals. She stated that she has a care provider and mental health clincians through [facility].
[2021-08-25] MEDS: clonazePAM 0.5mg tablet PO PRN (20:11)
[2021-08-25] MEDS: insulin glargine (Lantus) pen - multi-dose SQ SCH (20:12)
--- NOTE | 2021-08-25 20:40 | NUR ---
The patient reports she is feeling better. She is medication compliant.
--- NOTE | 2021-08-25 22:21 | NUR ---
The patient appears to be sleeping
--- NOTE | 2021-08-26 00:36 | NUR ---
The patient appears to be sleeping and is softly snoring
--- NOTE | 2021-08-26 02:36 | NUR ---
The patient is resting on her bed
--- NOTE | 2021-08-26 04:19 | NUR ---
The patient appears to be sleeping
--- NOTE | 2021-08-26 05:05 | NUR ---
Client resting on back. Resp even and unlabored.
[2021-08-26 05:29] VITALS: BP 130/81
--- NOTE | 2021-08-26 06:36 | NUR ---
Patient sleeping supine. No distress observed. Continue to monitor.
--- NOTE | 2021-08-26 07:50 | NUR ---
RN with patient. Patient denies suicidal feelings at this time. Patient states she wants to go home. Continue to monitor.
--- NOTE | 2021-08-26 08:20 | NUR ---
Patient eating breakfast. No distress observed. Continue to monitor.
--- NOTE | 2021-08-26 08:40 | NUR ---
Reza [facility], evaluating patient. Continue to monitor.
[2021-08-26] MEDS: pantoprazole 40mg Tablet.DR PO SCH (08:42)
[2021-08-26] MEDS: lactobacillus rhamnosus 10,000 MMU CELLS/CAPSULE PO SCH (08:42)
[2021-08-26] MEDS: duloxetine 30mg CAPSULE.DR PO SCH (08:42)
[2021-08-26] MEDS: nystatin 15 GM powder TP SCH (08:43)
[2021-08-26] MEDS: furosemide 40mg tablet PO SCH (08:43)
[2021-08-26] MEDS: potassium chloride 10mEq ER tablet PO SCH (08:43)
[2021-08-26] MEDS: levetiracetam 250mg tablet PO SCH (08:43)
[2021-08-26] MEDS: risperiDONE 2mg tablet PO SCH (08:43)
--- NOTE | 2021-08-26 09:30 | NUR ---
Patient talking back and forth with her Rn Wellness and her IHSS worker. IHSS worker, Georgina to tack picker patient around 1015. Patient is aware. Continue to monitor.
== END 2021-08-26 10:20 | disposition home or self-care (01) ==
LOC: ER 18:17
DX: R45.851 Suicidal ideations (principal); Z20.822 Contact with and (suspected) exposure to COVID-19; F32.9 Major depressive disorder, single episode, unspecified; Z98.890 Other specified postprocedural states; Z79.2 Long term (current) use of antibiotics; Z79.899 Other long term (current) drug therapy
CPT/HCPCS: 36415; 80053; 80305; 80320; 81001; 82948; 83036; 84443; 85025; 87077; 87088; 87186; 87635; 96361; 96374; 96376; 99285; C9803; J2060; J7042; 96360; J1815

== ENCOUNTER 2021-10-21 13:43 | Emergency (ER) | payer MEDICARE, MEDICAID ==
[~2021-10-21] VITALS: Ht 165.1 cm; Wt 175.0 kg
[~2021-10-21 13:43] MED LIST changes: +CIPR500T5 PO; -COLL30OI TOP; +DOXY-224 PO; +MEDR10TA10 PO; -TRAZ-256 PO
[2021-10-21] MEDS ORDERED: levetiracetam-NS 1000mg/100ml 100 ML IV STA (13:57)
[2021-10-21] MEDS ORDERED: LORazepam 2 mg/ml vial IV ONE (14:00)
[2021-10-21] MEDS ORDERED: normal saline 1000ML IV soln IV ONE (14:00)
[2021-10-21] MEDS ORDERED: magnesium 2GM in 50ml NS 50 ML IV ONE (14:00)
[2021-10-21] MEDS ORDERED: acetaminophen 325mg tablet PO ONE (15:05)
[2021-10-21 15:31] LABS: BASOPHILS % (AUTO) 0.4 % (0-1); EOSINOPHILS # (AUTO) 0.1 X10'3 (0-0.9); EOSINOPHILS % (AUTO) 0.9 % (0-6); HEMATOCRIT 39.6 % (35.0-45.0); HEMOGLOBIN 13.2 g/dl (12.0-16.0); LYMPHOCYTES # (AUTO) 1.9 X10'3 (1.1-4.8); LYMPHOCYTES % (AUTO) 23.2 % (21-51); MEAN CORPUSCULAR HEMOGLOBIN 29.3 PG (27.0-31.0); MEAN CORPUSCULAR HGB CONC 33.5 g/dL (33.0-36.5); MEAN CORPUSCULAR VOLUME 87.6 FL (78-98); MONOCYTES # (AUTO) 0.5 X10'3 (0-0.9); MONOCYTES % (AUTO) 5.8 % (2-12); NEUTROPHILS # (AUTO) 5.8 X10'3 (1.8-7.7); NEUTROPHILS % (AUTO) 69.7 % (42-75); PLATELET COUNT 218 X10'3 (140-440); RED BLOOD COUNT 4.52 X10'6 (4.20-5.60); RED CELL DISTRIBUTION WIDTH 13.9 % (11.5-14.5); WHITE BLOOD COUNT 8.3 X10'3 (4.5-11.0)
[2021-10-21 15:43] LABS: ALANINE AMINOTRANSFERASE 18 U/L (12-78); ALBUMIN 3.2 G/DL (3.4-5.0); ALBUMIN/GLOBULIN RATIO 0.8 (1.1-1.5); ALKALINE PHOSPHATASE 76 IU/L (46-116); ANION GAP 10 (8-16); ASPARTATE AMINO TRANSFERASE 9 U/L (10-37); BILIRUBIN,TOTAL 0.4 MG/DL (0.1-1.0); BLOOD UREA NITROGEN 15 MG/DL (7-18); BUN/CREATININE RATIO 23.1 (6.6-38.0); CALCIUM 8.4 MG/DL (8.5-10.1); CHLORIDE 104 MMOL/L (99-107); CREATININE 0.65 MG/DL (0.40-0.90); GLUCOSE 97 MG/DL (70-104); POTASSIUM 3.8 MMOL/L (3.5-5.1); SODIUM 142 MMOL/L (135-145); TOTAL CARBON DIOXIDE 28.2 MMOL/L (24-32); TOTAL PROTEIN 7.3 G/DL (6.4-8.2); eGFR > 90 ML/MIN
[2021-10-21 15:44] LABS: CREATINE KINASE 53 U/L (26-192); MAGNESIUM 1.9 MG/DL (1.5-2.4)
[2021-10-21 16:27] LABS: CLARITY,URINE SLIGHTLY CLOUDY (Clear); COLOR,URINE YELLOW (Yellow); GLUCOSE, URINE NEGATIVE (Neg); KETONES,URINE NEGATIVE (Neg); LEUKOCYTE ESTERASE ,URINE TRACE (Neg); NITRITES, URINE NEGATIVE (Neg); OCCULT BLOOD,URINE NEGATIVE (Neg); PH,URINE 7.5 (4.8-8.0); PROTEIN,URINE NEGATIVE (Neg); UROBILINOGEN,URINE 0.2 E.U/dL (0.2-1.0)
[2021-10-21 16:37] LABS: UA COLLECTION TYPE NON-SPECIFIED
[2021-10-21 16:38] LABS: BACTERIA,URINE 2+ /HPF (Neg); RBC,URINE NONE SEEN /HPF (0-2); SQUAMOUS EPITHELIAL CELL,UR NONE SEEN /LPF (FEW); WBC,URINE 0-4 /HPF (0-4)
[2021-10-21 18:47] VITALS: BP 119/69
== END 2021-10-21 19:42 | disposition home or self-care (01) ==
LOC: ER 13:43
DX: G40.909 Epilepsy, unspecified, not intractable, without status epilepticus (principal); R51.9 Headache, unspecified; F32.A Depression, unspecified; Z86.69 Personal history of other diseases of the nervous system and sense organs; Z98.890 Other specified postprocedural states; Z79.2 Long term (current) use of antibiotics; Z79.899 Other long term (current) drug therapy
CPT/HCPCS: 36415; 70450; 71045; 80053; 81001; 82550; 83605; 83735; 84145; 85025; 87040; 87077; 87088; 87186; 93005; 96365; 96366; 96368; 96375; 99285; J1953; J2060; J3475; J7030

== ENCOUNTER 2021-11-05 13:37 | Emergency (ER) | payer MEDICARE, MEDICAID ==
[~2021-11-05] VITALS: Ht 165.1 cm; Wt 163.2 kg
[2021-11-05] MEDS ORDERED: normal saline 1000ML IV soln IVB ONE (14:10)
[2021-11-05 14:33] LABS: BASOPHILS % (AUTO) 0.5 % (0-1); EOSINOPHILS # (AUTO) 0.1 X10'3 (0-0.9); EOSINOPHILS % (AUTO) 0.9 % (0-6); HEMOGLOBIN 13.5 g/dl (12.0-16.0); LYMPHOCYTES # (AUTO) 1.7 X10'3 (1.1-4.8); MEAN CORPUSCULAR HEMOGLOBIN 28.9 PG (27.0-31.0); MEAN CORPUSCULAR HGB CONC 32.9 g/dL (33.0-36.5); MONOCYTES # (AUTO) 0.4 X10'3 (0-0.9); MONOCYTES % (AUTO) 5.4 % (2-12); NEUTROPHILS # (AUTO) 5.6 X10'3 (1.8-7.7); NEUTROPHILS % (AUTO) 71.2 % (42-75); PLATELET COUNT 193 X10'3 (140-440); RED BLOOD COUNT 4.66 X10'6 (4.20-5.60); RED CELL DISTRIBUTION WIDTH 13.7 % (11.5-14.5); WHITE BLOOD COUNT 7.8 X10'3 (4.5-11.0)
[2021-11-05 14:46] LABS: ALANINE AMINOTRANSFERASE 14 U/L (12-78); ALBUMIN 3.3 G/DL (3.4-5.0); ALBUMIN/GLOBULIN RATIO 0.8 (1.1-1.5); ALKALINE PHOSPHATASE 82 IU/L (46-116); ANION GAP 13 (8-16); ASPARTATE AMINO TRANSFERASE 8 U/L (10-37); BILIRUBIN,TOTAL 0.4 MG/DL (0.1-1.0); BLOOD UREA NITROGEN 9 MG/DL (7-18); CALCIUM 8.8 MG/DL (8.5-10.1); CHLORIDE 105 MMOL/L (99-107); CREATININE 0.69 MG/DL (0.40-0.90); GLUCOSE 104 MG/DL (70-104); POTASSIUM 3.8 MMOL/L (3.5-5.1); SODIUM 145 MMOL/L (135-145); TOTAL PROTEIN 7.4 G/DL (6.4-8.2); eGFR 89 ML/MIN
[2021-11-05 14:52] LABS: ETHANOL < 0.010 GM/DL (0.0-0.010)
[2021-11-05 15:01] LABS: CLARITY,URINE CLEAR (Clear); COLOR,URINE YELLOW (Yellow); GLUCOSE, URINE NEGATIVE (Neg); KETONES,URINE NEGATIVE (Neg); LEUKOCYTE ESTERASE ,URINE MODERATE (Neg); NITRITES, URINE NEGATIVE (Neg); OCCULT BLOOD,URINE TRACE-INTACT (Neg); PH,URINE 5.5 (4.8-8.0); PROTEIN,URINE NEGATIVE (Neg); UA COLLECTION TYPE NON-SPECIFIED; UROBILINOGEN,URINE 0.2 E.U/dL (0.2-1.0)
[2021-11-05 15:08] LABS: URINE AMPHETAMINE SCREEN NEGATIVE (Neg); URINE BARBITUATE SCREEN NEGATIVE (Neg); URINE BENZODIAZEPINES SCREEN POSITIVE (Neg); URINE CANNABINOID SCREEN NEGATIVE (Neg); URINE COCAINE SCREEN NEGATIVE (Neg); URINE METHADONE SCREEN NEGATIVE (Neg); URINE OPIATE SCREEN NEGATIVE (Neg); URINE PHENCYCLIDINE SCREEN NEGATIVE (Neg)
[2021-11-05 15:14] LABS: BACTERIA,URINE 1+ /HPF (Neg); RBC,URINE 0-2 /HPF (0-2); SQUAMOUS EPITHELIAL CELL,UR FEW /LPF (FEW); WBC,URINE 0-4 /HPF (0-4)
[2021-11-05 16:29] VITALS: BP 156/88
--- NOTE | 2021-11-05 16:29 | NUR ---
Patient scheduled to be picked up from [facility] at 1700.
== END 2021-11-05 16:52 | disposition home or self-care (01) ==
LOC: ER 13:38
DX: R56.9 Unspecified convulsions (principal); R19.7 Diarrhea, unspecified; F32.A Depression, unspecified; Z86.69 Personal history of other diseases of the nervous system and sense organs; Z98.890 Other specified postprocedural states; Z79.2 Long term (current) use of antibiotics; Z79.899 Other long term (current) drug therapy
CPT/HCPCS: 36415; 70450; 71045; 80053; 80305; 80320; 81001; 85025; 87088; 93005; 99285; J7030; 87186

== ENCOUNTER 2021-12-26 16:06 | Emergency (ER) | payer MEDICARE, MEDICAID ==
[~2021-12-26] VITALS: Ht 165.1 cm; Wt 170.4 kg
[2021-12-26] MEDS ORDERED: levetiracetam inj 1,000 MG in normal saline 100ml IV soln 90 ML IV STA (16:28)
[2021-12-26] MEDS ORDERED: ondansetron/PF 4mg/2ml inj IV ONE (16:30)
[2021-12-26] MEDS ORDERED: normal saline 1000ML IV soln IVB ONE (16:30)
[2021-12-26] MEDS ORDERED: magnesium 2GM in 50ml NS 50 ML IV ONE (16:30)
[2021-12-26] MEDS ORDERED: LORazepam 2 mg/ml vial IV ONE (16:30)
[2021-12-26 16:46] LABS: BASOPHILS # (AUTO) 0.1 X10'3 (0-0.2); BASOPHILS % (AUTO) 0.6 % (0-1); EOSINOPHILS # (AUTO) 0.1 X10'3 (0-0.9); EOSINOPHILS % (AUTO) 0.6 % (0-6); HEMOGLOBIN 13.8 g/dl (12.0-16.0); LYMPHOCYTES % (AUTO) 22.1 % (21-51); MEAN CORPUSCULAR HGB CONC 32.8 g/dL (33.0-36.5); MEAN CORPUSCULAR VOLUME 85.2 FL (78-98); MEAN PLATELET VOLUME 9.5 FL (7.4-10.4); MONOCYTES # (AUTO) 0.5 X10'3 (0-0.9); MONOCYTES % (AUTO) 5.6 % (2-12); NEUTROPHILS # (AUTO) 6.4 X10'3 (1.8-7.7); NEUTROPHILS % (AUTO) 71.1 % (42-75); PLATELET COUNT 216 X10'3 (140-440); RED BLOOD COUNT 4.92 X10'6 (4.20-5.60); RED CELL DISTRIBUTION WIDTH 13.4 % (11.5-14.5)
[2021-12-26 17:06] LABS: ALANINE AMINOTRANSFERASE 18 U/L (12-78); ALBUMIN 3.5 G/DL (3.4-5.0); ALBUMIN/GLOBULIN RATIO 0.8 (1.1-1.5); ALKALINE PHOSPHATASE 77 IU/L (46-116); ANION GAP 9 (8-16); ASPARTATE AMINO TRANSFERASE 10 U/L (10-37); BILIRUBIN,TOTAL 0.4 MG/DL (0.1-1.0); BLOOD UREA NITROGEN 14 MG/DL (7-18); BUN/CREATININE RATIO 23.7 (6.6-38.0); CALCIUM 8.9 MG/DL (8.5-10.1); CHLORIDE 104 MMOL/L (99-107); CREATINE KINASE 60 U/L (26-192); CREATININE 0.59 MG/DL (0.40-0.90); GLUCOSE 97 MG/DL (70-104); MAGNESIUM 1.7 MG/DL (1.5-2.4); POTASSIUM 4.1 MMOL/L (3.5-5.1); SODIUM 140 MMOL/L (135-145); TOTAL CARBON DIOXIDE 27.5 MMOL/L (24-32); TOTAL PROTEIN 7.9 G/DL (6.4-8.2); eGFR > 90 ML/MIN
[2021-12-26 19:58] VITALS: BP 172/76
== END 2021-12-26 20:00 | disposition home or self-care (01) ==
LOC: ER 16:07
DX: G43.909 Migraine, unspecified, not intractable, without status migrainosus (principal); R25.1 Tremor, unspecified; G47.30 Sleep apnea, unspecified; Z79.2 Long term (current) use of antibiotics; Z79.899 Other long term (current) drug therapy
CPT/HCPCS: 36415; 71045; 80053; 82550; 83735; 85025; 93005; 96365; 96366; 96368; 96375; 99285; J1953; J2060; J2405; J3475; J3490; J7030

== ENCOUNTER 2022-02-26 13:27 | Emergency (ER) | payer MEDICARE, MEDICAID ==
[~2022-02-26] VITALS: Ht 170.2 cm; Wt 170.4 kg
[2022-02-26] MEDS ORDERED: LORazepam 2 mg/ml vial IV ONE (15:05)
--- NOTE | 2022-02-26 15:12 | NUR ---
NOT GIVEN ATIVIAN AT THIS TIME PATIENT IS SLEEPING .RECEVIED VERSED ANITRA.
--- NOTE | 2022-02-26 15:25 | NUR ---
GIVEN 1 MG IV ATIVAN PER LUCINA REYNA WHO IS WORKING WITH DR SMITH . PT IS EMOTIONAL BUT NO SEIZURE EPISODE, PER MD GIVE NAOTHER 1MG IF CONDITION CHANGED.
--- NOTE | 2022-02-26 17:18 | NUR ---
PT HAS EPISODE OF SEIZURE ,GIVEN 1 MG ATIVAN IV FOR SEIZURE,PT WAS GIVEN 1 MG IV EARLIER BEFORE CT SCAN PT WAS CRYING AND EMOTIONAL ,GIVEN PER MD ORDERS IN DIVIDED DOSE.
[2022-02-26 19:06] LABS: BASOPHILS % (AUTO) 0.4 % (0-1); EOSINOPHILS # (AUTO) 0.1 X10'3 (0-0.9); EOSINOPHILS % (AUTO) 0.7 % (0-6); HEMATOCRIT 38.3 % (35.0-45.0); HEMOGLOBIN 12.7 g/dl (12.0-16.0); LYMPHOCYTES # (AUTO) 2.1 X10'3 (1.1-4.8); LYMPHOCYTES % (AUTO) 25.9 % (21-51); MEAN CORPUSCULAR HEMOGLOBIN 28.2 PG (27.0-31.0); MEAN CORPUSCULAR HGB CONC 33.3 g/dL (33.0-36.5); MEAN CORPUSCULAR VOLUME 84.9 FL (78-98); MEAN PLATELET VOLUME 8.7 FL (7.4-10.4); MONOCYTES # (AUTO) 0.5 X10'3 (0-0.9); MONOCYTES % (AUTO) 6.5 % (2-12); NEUTROPHILS # (AUTO) 5.3 X10'3 (1.8-7.7); NEUTROPHILS % (AUTO) 66.5 % (42-75); PLATELET COUNT 216 X10'3 (140-440); RED BLOOD COUNT 4.51 X10'6 (4.20-5.60); RED CELL DISTRIBUTION WIDTH 14.4 % (11.5-14.5)
[2022-02-26 19:30] LABS: ALANINE AMINOTRANSFERASE 16 U/L (12-78); ALBUMIN/GLOBULIN RATIO 0.8 (1.1-1.5); ALKALINE PHOSPHATASE 70 IU/L (46-116); ANION GAP 6 (8-16); ASPARTATE AMINO TRANSFERASE 6 U/L (10-37); BILIRUBIN,TOTAL 0.4 MG/DL (0.1-1.0); BLOOD UREA NITROGEN 9 MG/DL (7-18); BUN/CREATININE RATIO 15.8 (6.6-38.0); CALCIUM 8.5 MG/DL (8.5-10.1); CHLORIDE 104 MMOL/L (99-107); CREATININE 0.57 MG/DL (0.40-0.90); GLUCOSE 94 MG/DL (70-104); POTASSIUM 3.7 MMOL/L (3.5-5.1); SODIUM 141 MMOL/L (135-145); TOTAL PROTEIN 6.7 G/DL (6.4-8.2); eGFR > 90 ML/MIN
--- NOTE | 2022-02-26 19:42 | NUR ---
RN WALKED BY WITNESSED PT ATTEMPTING TO GET OUT OF BED. PT ATTEMPTED TO RIP AND BITE OFF IV. AT BEDSIDE. TOLD RN TO DC IV. IV IS DCED. PT CONTINUING TO ATTEMPT TO GET OUT OF BED. IS UNRESPONSIVE TO QUESTIONS. BUT IS ABLE TO RESPOND WHEN SHE WANTS TO. VERBAL ORDER FOR 2 MG IM ATIVAN
[2022-02-26] MEDS ORDERED: LORazepam 2 mg/ml vial IM ONE ×2 (19:45)
--- NOTE | 2022-02-26 22:17 | NUR ---
PT BEHAVIOR CONTINUING TO ESCALATE. LAWSON MENENDEZ IS AWARE. RESTRAINTS APPLIED AT 2200. PT HAS ALREADY REMOVED THEM ONCE. THEY HAVE BEEN REAPPLIED
[2022-02-26] MEDS ORDERED: diphenhydrAMINE 50 mg/ml inj IM ONE (22:20)
--- NOTE | 2022-02-26 22:44 | NUR ---
PT REMOVED RESTRAINTS BUT IS SLEEPING IN HER ROOM. EQUAL RISE AND FALL OF CHEST NOTED. STILL AWAITING TRANSPORT
== END 2022-02-26 23:43 ==
LOC: ER 13:28
DX: R56.9 Unspecified convulsions (principal); F32.A Depression, unspecified; Z98.890 Other specified postprocedural states; Z79.899 Other long term (current) drug therapy
CPT/HCPCS: 36415; 70450; 80053; 85025; 96372; 96374; 99285; J2060

== ENCOUNTER 2023-06-28 07:38 | Inpatient (IN) | payer MEDICARE, MEDICAID ==
[~2023-06-28] VITALS: Ht 167.6 cm; Wt 187.9 kg
[~2023-06-28 07:38] MED LIST changes: +POTA-206 PO; -POTA10TA37 PO
[2023-06-28] MEDS ORDERED: normal saline 1000ML IV soln IV ONE (08:10)
[2023-06-28] MEDS ORDERED: ondansetron/PF 4mg/2ml inj IV ONE (08:10)
[2023-06-28] MEDS ORDERED: morphine 4 MG/ML inj SYRINge IV ONE (08:10)
--- NOTE | 2023-06-28 08:29 | NUR ---
X RAY JUST LEFT THE ROOM. IV FLUIDS STARTED. LAB AT BEDSIDE. VASCULAR AT BEDSIDE.
[2023-06-28 08:42] LABS: BASOPHILS % (AUTO) 0.2 % (0-1); EOSINOPHILS % (AUTO) 0 % (0-6); HEMATOCRIT 38.2 % (35.0-45.0); HEMOGLOBIN 12.5 g/dl (12.0-16.0); LYMPHOCYTES # (AUTO) 1.1 X10'3 (1.1-4.8); LYMPHOCYTES % (AUTO) 6.6 % (21-51); MEAN CORPUSCULAR HEMOGLOBIN 28.3 PG (27.0-31.0); MEAN CORPUSCULAR HGB CONC 32.7 g/dL (33.0-36.5); MEAN CORPUSCULAR VOLUME 86.5 FL (78-98); MEAN PLATELET VOLUME 9.9 FL (7.4-10.4); MONOCYTES # (AUTO) 0.7 X10'3 (0-0.9); MONOCYTES % (AUTO) 4.2 % (2-12); NEUTROPHILS # (AUTO) 14.2 X10'3 (1.8-7.7); PLATELET COUNT 168 X10'3 (140-440); RED BLOOD COUNT 4.41 X10'6 (4.20-5.60); RED CELL DISTRIBUTION WIDTH 13.9 % (11.5-14.5); WHITE BLOOD COUNT 15.9 X10'3 (4.5-11.0)
[2023-06-28 08:54] LABS: ALANINE AMINOTRANSFERASE 14 U/L (12-78); ALBUMIN 2.4 G/DL (3.4-5.0); ALBUMIN/GLOBULIN RATIO 0.5 (1.1-1.5); ALKALINE PHOSPHATASE 84 IU/L (46-116); ANION GAP 12 (8-16); ASPARTATE AMINO TRANSFERASE 19 U/L (10-37); BILIRUBIN,TOTAL 1.4 MG/DL (0.1-1.0); BLOOD UREA NITROGEN 11 MG/DL (7-18); BUN/CREATININE RATIO 12.6 (10.0-20.0); CALCIUM 9.1 MG/DL (8.5-10.1); CHLORIDE 96 MMOL/L (99-107); CREATININE 0.87 MG/DL (0.40-0.90); GLUCOSE 114 MG/DL (70-104); POTASSIUM 3.2 MMOL/L (3.5-5.1); SODIUM 133 MMOL/L (135-145); TOTAL CARBON DIOXIDE 25.5 MMOL/L (24-32); TOTAL PROTEIN 6.8 G/DL (6.4-8.2); eCRCL 68 ML/MIN; eGFR 68 ML/MIN
[2023-06-28] MEDS ORDERED: vancomycin/NS 1 GM ADD-VANTAGE 250 ML X 1 DOSE IV ONE (09:30)
--- NOTE | 2023-06-28 09:30 | NUR ---
float nurse [phone] iv started 20 g right hand
[2023-06-28] MEDS ORDERED: potassium Cl 20 mEq SR tablet PO STA (10:20)
[2023-06-28 10:28] LABS: BILIRUBIN,URINE NEGATIVE (Neg); CLARITY,URINE CLOUDY (Clear); COLOR,URINE YELLOW (Yellow); GLUCOSE, URINE NEGATIVE (Neg); KETONES,URINE >=80 mg/dl (Neg); LEUKOCYTE ESTERASE ,URINE LARGE (Neg); NITRITES, URINE POSITIVE (Neg); OCCULT BLOOD,URINE MODERATE (Neg); PH,URINE 5.5 (4.8-8.0); PROTEIN,URINE 100 mg/dl (Neg); UROBILINOGEN,URINE 0.2 E.U/dL (0.2-1.0)
[2023-06-28 10:34] LABS: UA COLLECTION TYPE VOIDED
[2023-06-28 10:35] LABS: BACTERIA,URINE 4+ /HPF (Neg); SQUAMOUS EPITHELIAL CELL,UR MODERATE /LPF (FEW)
[2023-06-28] MEDS ORDERED: diphenhydrAMINE 50 mg/ml inj IV ONE ×2 (10:35→21:35)
[2023-06-28] MEDS ORDERED: methylPREDNISolone sod succ 125mg/2ml vial IV ONE (10:35)
[2023-06-28 10:36] LABS: TRANSITIONAL EPI CELLS,URINE FEW /HPF; WBC,URINE TNTC /HPF (0-4)
[2023-06-28 10:37] LABS: RBC,URINE 0-2 /HPF (0-2)
[2023-06-28] MEDS ORDERED: ondansetron/PF 4mg/2ml inj IV PRN (11:20)
[2023-06-28] MEDS ORDERED: magnesium 4gm in 100ml NS 100 ML IV PRN (11:20)
[2023-06-28] MEDS ORDERED: magnesium Cl slow-release 64mg tablet PO PRN (11:20)
[2023-06-28] MEDS ORDERED: acetaminophen 325mg tablet PO PRN (11:20)
[2023-06-28] MEDS ORDERED: HYDROcodone/acetaminophen 5mg/325mg tablet PO PRN (11:20)
[2023-06-28] MEDS ORDERED: potassium Cl 20 mEq SR tablet PO PRN ×2 (11:20)
[2023-06-28] MEDS ORDERED: potassium Cl 40MEQ/1/2NS 520ml 520 ML IV PRN (11:20)
[2023-06-28] MEDS ORDERED: magnesium 2GM in 50ml NS 50 ML IV PRN (11:20)
--- NOTE | 2023-06-28 12:06 | NUR ---
Mary at [facility] [phone].
[2023-06-28] MEDS ORDERED: CELE100C99 PO (12:51)
[2023-06-28] MEDS ORDERED: ARIP10TA57 PO (12:51)
[2023-06-28] MEDS ORDERED: DOXE3TAB4 PO (12:51)
[2023-06-28] MEDS ORDERED: KETO15CR2 TOP (12:51)
[2023-06-28] MEDS ORDERED: PRAZ2CAP2 PO (12:51)
[2023-06-28] MEDS ORDERED: ACET-75 PO (12:51)
[2023-06-28] MEDS ORDERED: FURO40TA4 PO (12:51)
--- NOTE | 2023-06-28 14:29 | NUR ---
REPOSITIONED PT AND CHANGED LINEN
[2023-06-28] MEDS: normal saline 1000ml 1,000 ML IV SCH ×2 (14:43→19:37)
[2023-06-28] MEDS ORDERED: FLU VACC QS2023-24(6MOS UP)/PF 60 MCG/0.5 ML SYRINGE IM ONE (15:00)
--- NOTE | 2023-06-28 15:48 | NUR ---
PT REPOSITIONED. RT PAGED FOR CONSULT
[2023-06-28] MEDS: K and/or MAG REPLACEMENT MC SCH (19:04)
[2023-06-28] MEDS: docusate sod 100mg capsule PO SCH (19:36)
[2023-06-28] MEDS ORDERED: piperacillin/tazo 4.5gm/100ml 100 ML IV ONE (20:00)
[2023-06-28] MEDS ORDERED: morphine 4 MG/ML inj SYRINge IV PRN (20:35)
[2023-06-28] MEDS ORDERED: morphine 2 MG/ML inj. syringe IV PRN (20:35)
[2023-06-28] MEDS ORDERED: VANCOMYCIN 1,500MG in NS 300ml IVPB IV SCH (21:04)
[2023-06-29] VITALS (7 sets, daily range): BP systolic 101–125; BP diastolic 57–75; PULSE 76–94; RESP 16–22; TEMP 97.8–100.1; O2SAT 95–99
--- NOTE | 2023-06-29 00:12 | NUR ---
pt placed in hospital bed
[2023-06-29] MEDS: cefepime 1GM/NS ADD-VANTAGE 100 ML IV SCH ×3 (06:13→21:42)
[2023-06-29] MEDS: HYDROcodone/acetaminophen 10/325mg tab PO PRN ×2 (06:53→16:26)
[2023-06-29 07:06] LABS: BASOPHILS % (AUTO) 0.1 % (0-1); EOSINOPHILS % (AUTO) 0 % (0-6); HEMATOCRIT 35.2 % (35.0-45.0); HEMOGLOBIN 11.5 g/dl (12.0-16.0); LYMPHOCYTES # (AUTO) 0.9 X10'3 (1.1-4.8); LYMPHOCYTES % (AUTO) 5.2 % (21-51); MEAN CORPUSCULAR HEMOGLOBIN 28.4 PG (27.0-31.0); MEAN CORPUSCULAR HGB CONC 32.7 g/dL (33.0-36.5); MEAN CORPUSCULAR VOLUME 86.7 FL (78-98); MEAN PLATELET VOLUME 10.2 FL (7.4-10.4); MONOCYTES # (AUTO) 0.8 X10'3 (0-0.9); MONOCYTES % (AUTO) 4.8 % (2-12); NEUTROPHILS % (AUTO) 89.9 % (42-75); PLATELET COUNT 161 X10'3 (140-440); RED BLOOD COUNT 4.07 X10'6 (4.20-5.60); RED CELL DISTRIBUTION WIDTH 14.5 % (11.5-14.5); WHITE BLOOD COUNT 17.7 X10'3 (4.5-11.0)
--- NOTE | 2023-06-29 07:07 | NUR ---
PICTURES OF WOUNDS TO Miesha RYAN TAKEN AND PLACED IN CHART.
[2023-06-29 07:38] LABS: ALBUMIN 1.9 G/DL (3.4-5.0); ANION GAP 9 (8-16); BLOOD UREA NITROGEN 12 MG/DL (7-18); BUN/CREATININE RATIO 18.5 (10.0-20.0); CALCIUM 8.4 MG/DL (8.5-10.1); CHLORIDE 104 MMOL/L (99-107); CREATININE 0.65 MG/DL (0.40-0.90); GLUCOSE 140 MG/DL (70-104); POTASSIUM 3.6 MMOL/L (3.5-5.1); SODIUM 138 MMOL/L (135-145); eCRCL 92 ML/MIN; eGFR > 90 ML/MIN
[2023-06-29] MEDS: normal saline 1000ml 1,000 ML IV SCH ×2 (07:43→17:20)
[2023-06-29] MEDS: K and/or MAG REPLACEMENT MC SCH ×2 (08:00→20:00)
[2023-06-29] MEDS: docusate sod 100mg capsule PO SCH ×2 (08:00→20:57)
--- NOTE | 2023-06-29 08:21 | NUR ---
Received patient to room 3009. Patient alert and oriented in no apparent acute distress. Patient x1 belongings bag placed in closet. Patient oriented to room and call light. Call light placed within patient's reach.
--- NOTE | 2023-06-29 08:28 | NUR ---
PAGER ID: [phone] MESSAGE: [phone]-Kevan Angeline- has allergy to Vanco. states ER was giving her bendaryl prior to administering vanco. has 0800 vanco due. hold or give?- Kirstin [phone]
--- NOTE | 2023-06-29 09:26 | NUR ---
PAGER ID: [phone] MESSAGE: [phone]-Megha Drummond- pt has allergy to Vanco. Has Vanco IV and maxipime IV ordered. Do you want DC Vanco?- Kirstin [phone]
--- NOTE | 2023-06-29 09:27 | NUR ---
Received call back from Dr. Mauricio stated to continue vanco and give benadryl each time patient to receive vanco.
[2023-06-29] MEDS: diphenhydrAMINE 50 mg/ml inj IV PRN ×2 (09:48→17:33)
[2023-06-29] MEDS: vancomycin/NS 1 GM ADD-VANTAGE 250 ML IV SCH ×2 (09:48→17:33)
--- NOTE | 2023-06-29 13:38 | NUR ---
PRESSURE ULCER EDUCATION: DEFINITION: A pressure ulcer is an area of skin that breaks down when you stay in one position too long. The constant pressure against the skin reduces the blood flow to that area and the affected tissue dies. CAUSES: "Being bedridden or in a wheelchair "Fragile skin "Having a chronic condition, such as diabetes or vascular disease "Inability to move certain parts of your body without assistance "Older age "Incontinence of urine or stool SYMPTOMS: "A reddened area that DOES NOT turn white when pressed on - this can be the beginning of a pressure ulcer "A blister, deep sore or a crater - these can be advanced pressure ulcers FIRST AID: "Relieve the pressure on this area "Keep the area clean and dry "Call your primary doctor if you see any of the above symptoms "DO NOT massage the area "DO NOT use a donut shaped or ring shaped pillow- these actually interfere with the blood flow and cause complications PREVENTION: "Check for pressure ulcers everyday "Change position at least every two hours to relieve pressure "Use items that help relieve pressure- pillows, sheepskin, foam padding, and powders. "Keep skin clean and dry "Eat healthy well balanced meals "Exercise daily IF YOU SEE ANY OF THESE SYMPTOMS WHILE IN THE HOSPITAL - TELL YOUR NURSE IMMEDIATELY. IF YOU SEE ANY OF THESE SYMPTOMS WHILE AT HOME OR HAVE ANY QUESTIONS OR CONCERNS ABOUT PRESSURE ULCERS - CALL YOUR PRIMARY DOCTOR IMMEDIATELY. Addendum: 06/29/23 at 1338 by Anette Self LVN Amended: Links added.
[2023-06-29] MEDS ORDERED: SEMA0.258 SQ (14:57)
--- NOTE | 2023-06-29 15:40 | NUR ---
Patient trying to climb out of bed. Refusing to have vitals done.
--- NOTE | 2023-06-29 15:48 | NUR ---
PAGER ID: [phone] MESSAGE: [phone]-Megha Mathur- pt wanting to go home. climbing out of bed. confused. home meds include ariprazole, doxepin, cymbalta which has not gotten. pt states no longer on respiradol. any new orders?- Kirstin 308
[2023-06-29] MEDS ORDERED: LORazepam 2 mg/ml vial IV ONE (15:55)
[2023-06-29] MEDS: furosemide 40mg tablet PO SCH (16:19)
[2023-06-29] MEDS: ARIPIPRAZOLE 10 MG TABLET PO SCH (16:20)
--- NOTE | 2023-06-29 18:21 | NUR ---
Problems reprioritized. Patient report given, questions answered & plan of care reviewed with KAILASH DURHAM.
--- NOTE | 2023-06-29 18:30 | NUR ---
Patient in room PCU 3009. I have received report from KAILASH Fulton and had the opportunity to ask questions and assume patient care.
[2023-06-29] MEDS: prazosin 1mg capsule PO SCH (20:57)
[2023-06-29] MEDS: potassium chloride 10mEq ER tablet PO SCH (20:57)
[2023-06-29] MEDS: DOXEPIN HCL 3 MG PO SCH (21:00)
[2023-06-30] VITALS (8 sets, daily range): BP systolic 95–111; BP diastolic 53–72; PULSE 68–90; RESP 12–21; TEMP 97.9–98.8; O2SAT 94–98
[2023-06-30] MEDS: vancomycin/NS 1 GM ADD-VANTAGE 250 ML IV SCH ×3 (00:38→16:06)
[2023-06-30] MEDS: diphenhydrAMINE 50 mg/ml inj IV PRN ×3 (00:47→16:05)
[2023-06-30] MEDS: normal saline 1000ml 1,000 ML IV SCH ×3 (02:55→22:01)
[2023-06-30] MEDS: cefepime 1GM/NS ADD-VANTAGE 100 ML IV SCH ×3 (05:46→22:01)
--- NOTE | 2023-06-30 06:15 | NUR ---
Problems reprioritized. Patient report given, questions answered & plan of care reviewed with KAILASH Fulton.
--- NOTE | 2023-06-30 06:20 | NUR ---
Patient in room PCU 3009. I have received report from Benigno Pizarro and had the opportunity to ask questions and assume patient care.
[2023-06-30] MEDS ORDERED: VANCOMYCIN LEVEL IV ONE ×2 (07:30→15:30)
[2023-06-30] MEDS: duloxetine 30mg CAPSULE.DR PO SCH (07:55)
[2023-06-30] MEDS: furosemide 40mg tablet PO SCH (07:55)
[2023-06-30] MEDS: potassium chloride 10mEq ER tablet PO SCH ×2 (07:55→20:07)
[2023-06-30] MEDS: ARIPIPRAZOLE 10 MG TABLET PO SCH (07:55)
[2023-06-30] MEDS: nystatin 15 GM powder TP SCH (07:57)
[2023-06-30] MEDS: docusate sod 100mg capsule PO SCH ×2 (08:00→20:00)
[2023-06-30] MEDS: K and/or MAG REPLACEMENT MC SCH ×2 (08:00→20:00)
[2023-06-30] MEDS: HYDROcodone/acetaminophen 10/325mg tab PO PRN (08:01)
--- NOTE | 2023-06-30 10:52 | NUR ---
Dr. Mauricio in to see patient. Dr Mauricio notified wound care recommends diflucan for patient yeast. Dr. Mauricio stated not nneeded.
--- NOTE | 2023-06-30 14:53 | NUR ---
Patient's belongings ( a bag and clothing) were placed in large clear trash bag with patient's label on placed by door to be taken down to ER per infectious disease RN's however EVS mistaken bag for trash and placed in trash bin. EVS director notified and are searching fo belongings. Addendum: 06/30/23 at 1620 by Kirstin Acosta RN Per EVS director belongings "it's gone." unable to retrieve. Nursing labor crew supervisor Christine borges as well.
[2023-06-30 15:49] LABS: BASOPHILS % (AUTO) 0.1 % (0-1); EOSINOPHILS % (AUTO) 0.3 % (0-6); HEMATOCRIT 36.5 % (35.0-45.0); HEMOGLOBIN 11.8 g/dl (12.0-16.0); LYMPHOCYTES # (AUTO) 1.7 X10'3 (1.1-4.8); LYMPHOCYTES % (AUTO) 14.1 % (21-51); MEAN CORPUSCULAR HEMOGLOBIN 28.2 PG (27.0-31.0); MEAN CORPUSCULAR HGB CONC 32.4 g/dL (33.0-36.5); MEAN CORPUSCULAR VOLUME 87.2 FL (78-98); MEAN PLATELET VOLUME 9.5 FL (7.4-10.4); MONOCYTES # (AUTO) 0.9 X10'3 (0-0.9); MONOCYTES % (AUTO) 7.3 % (2-12); NEUTROPHILS # (AUTO) 9.3 X10'3 (1.8-7.7); NEUTROPHILS % (AUTO) 78.2 % (42-75); PLATELET COUNT 192 X10'3 (140-440); RED BLOOD COUNT 4.18 X10'6 (4.20-5.60); RED CELL DISTRIBUTION WIDTH 14.7 % (11.5-14.5); WHITE BLOOD COUNT 11.9 X10'3 (4.5-11.0)
[2023-06-30 15:58] LABS: ALBUMIN 1.8 G/DL (3.4-5.0); ANION GAP 5 (8-16); BLOOD UREA NITROGEN 13 MG/DL (7-18); BUN/CREATININE RATIO 17.8 (10.0-20.0); CALCIUM 8.6 MG/DL (8.5-10.1); CHLORIDE 105 MMOL/L (99-107); CREATININE 0.73 MG/DL (0.40-0.90); GLUCOSE 106 MG/DL (70-104); POTASSIUM 3.6 MMOL/L (3.5-5.1); SODIUM 142 MMOL/L (135-145); eCRCL 82 ML/MIN; eGFR 83 ML/MIN
[2023-06-30 16:10] LABS: VANCOMYCIN,TROUGH 20.2 ug/mL (10.0-20.0)
--- NOTE | 2023-06-30 16:20 | NUR ---
PAGER ID: [phone] MESSAGE: [phone]- Megha Mathur- pt rash upper arms. has been getting the benadryl 25mg when getting the vanco. do you want to dc vanco or increase benadryl?- Kirstin 245
[2023-06-30] MEDS: prazosin 1mg capsule PO SCH (20:07)
[2023-06-30] MEDS: DOXEPIN HCL 3 MG PO SCH (21:00)
[2023-07-01] MEDS: VANCOMYCIN 750MG IV in NS 250 ML IV SCH ×3 (00:21→16:53)
[2023-07-01] MEDS: diphenhydrAMINE 50 mg/ml inj IV PRN ×3 (00:21→16:57)
[2023-07-01] MEDS: HYDROcodone/acetaminophen 10/325mg tab PO PRN (00:28)
[2023-07-01 03:23] VITALS: BP 107/57; PULSE 95; RESP 24; TEMP 98.5; O2SAT 96
[2023-07-01] MEDS: cefepime 1GM/NS ADD-VANTAGE 100 ML IV SCH ×3 (05:07→22:54)
--- NOTE | 2023-07-01 06:20 | NUR ---
Problems reprioritized. Patient report given, questions answered & plan of care reviewed with KAILASH Mccarty.
--- NOTE | 2023-07-01 06:32 | NUR ---
Patient in room PCU 3009. I have received report from seth monteiro and had the opportunity to ask questions and assume patient care.
[2023-07-01 06:59] LABS: BASOPHILS % (AUTO) 0.1 % (0-1); EOSINOPHILS # (AUTO) 0.1 X10'3 (0-0.9); HEMATOCRIT 31.5 % (35.0-45.0); HEMOGLOBIN 10.4 g/dl (12.0-16.0); LYMPHOCYTES # (AUTO) 1.6 X10'3 (1.1-4.8); LYMPHOCYTES % (AUTO) 17.3 % (21-51); MEAN CORPUSCULAR HEMOGLOBIN 28.6 PG (27.0-31.0); MEAN CORPUSCULAR HGB CONC 32.9 g/dL (33.0-36.5); MEAN PLATELET VOLUME 9.5 FL (7.4-10.4); MONOCYTES # (AUTO) 0.7 X10'3 (0-0.9); MONOCYTES % (AUTO) 7.5 % (2-12); NEUTROPHILS % (AUTO) 74.1 % (42-75); PLATELET COUNT 204 X10'3 (140-440); RED BLOOD COUNT 3.63 X10'6 (4.20-5.60); RED CELL DISTRIBUTION WIDTH 14.8 % (11.5-14.5); WHITE BLOOD COUNT 9.5 X10'3 (4.5-11.0)
[2023-07-01 07:23] LABS: ALBUMIN 1.5 G/DL (3.4-5.0); ANION GAP 3 (8-16); BLOOD UREA NITROGEN 13 MG/DL (7-18); BUN/CREATININE RATIO 20.6 (10.0-20.0); CALCIUM 8.3 MG/DL (8.5-10.1); CHLORIDE 105 MMOL/L (99-107); CREATININE 0.63 MG/DL (0.40-0.90); GLUCOSE 109 MG/DL (70-104); MAGNESIUM 1.8 MG/DL (1.5-2.4); POTASSIUM 3.5 MMOL/L (3.5-5.1); SODIUM 139 MMOL/L (135-145); TOTAL CARBON DIOXIDE 31.3 MMOL/L (24-32); eCRCL 94 ML/MIN; eGFR > 90 ML/MIN
[2023-07-01 07:38] VITALS: BP 108/52; PULSE 78; RESP 18; TEMP 97.3; O2SAT 94
[2023-07-01] MEDS: K and/or MAG REPLACEMENT MC SCH ×2 (07:54→18:46)
[2023-07-01] MEDS: docusate sod 100mg capsule PO SCH ×2 (08:00→20:00)
[2023-07-01] MEDS: furosemide 40mg tablet PO SCH (08:18)
[2023-07-01] MEDS: duloxetine 30mg CAPSULE.DR PO SCH (08:18)
[2023-07-01] MEDS: potassium chloride 10mEq ER tablet PO SCH ×2 (08:18→21:19)
[2023-07-01] MEDS: ARIPIPRAZOLE 10 MG TABLET PO SCH (08:18)
[2023-07-01] MEDS: nystatin 15 GM powder TP SCH (08:21)
[2023-07-01 09:11] LABS: LARGE PLATELETS FEW; PLATELET ESTIMATE NORMAL; SMUDGE CELLS FEW; TOTAL CELLS COUNTED 100
[2023-07-01] MEDS: normal saline 1000ml 1,000 ML IV SCH ×2 (09:20→19:20)
[2023-07-01 10:58] VITALS: BP 111/66; PULSE 88; RESP 17; TEMP 97.3; O2SAT 94
[2023-07-01] MEDS ORDERED: iohexol 300mg/ml 100ml inj. ONE (13:56)
[2023-07-01 15:00] VITALS: BP 110/60; PULSE 76; RESP 16; TEMP 98.4; O2SAT 96
[2023-07-01 18:00] VITALS: BP 110/80; PULSE 70; RESP 20; TEMP 98; O2SAT 99
[2023-07-01] MEDS: DOXEPIN HCL 3 MG PO SCH (21:00)
[2023-07-01] MEDS: prazosin 1mg capsule PO SCH (21:19)
[2023-07-01 23:23] VITALS: BP 110/63; PULSE 88; RESP 16; TEMP 97.9; O2SAT 95
[2023-07-01] MEDS ORDERED: VANCOMYCIN LEVEL IV ONE (23:30)
[2023-07-02] MEDS: VANCOMYCIN 750MG IV in NS 250 ML IV SCH ×3 (00:31→16:45)
[2023-07-02] MEDS: diphenhydrAMINE 50 mg/ml inj IV PRN (00:31)
[2023-07-02 03:00] VITALS: BP 120/78; PULSE 88; RESP 16; TEMP 98.8; O2SAT 94
--- NOTE | 2023-07-02 03:20 | NUR ---
Problems reprioritized. Patient report given, questions answered & plan of care reviewed with esperanza renae.
[2023-07-02] MEDS: normal saline 1000ml 1,000 ML IV SCH ×2 (05:20→15:20)
[2023-07-02] MEDS: cefepime 1GM/NS ADD-VANTAGE 100 ML IV SCH ×2 (06:35→14:37)
[2023-07-02 06:55] VITALS: BP 116/61; PULSE 85; RESP 16; TEMP 98.7; O2SAT 95
[2023-07-02 07:23] LABS: BASOPHILS % (AUTO) 0.3 % (0-1); EOSINOPHILS # (AUTO) 0.1 X10'3 (0-0.9); EOSINOPHILS % (AUTO) 0.9 % (0-6); HEMATOCRIT 31.7 % (35.0-45.0); HEMOGLOBIN 10.6 g/dl (12.0-16.0); LYMPHOCYTES # (AUTO) 1.8 X10'3 (1.1-4.8); LYMPHOCYTES % (AUTO) 16.5 % (21-51); MEAN CORPUSCULAR HGB CONC 33.3 g/dL (33.0-36.5); MEAN CORPUSCULAR VOLUME 87.1 FL (78-98); MEAN PLATELET VOLUME 9.1 FL (7.4-10.4); MONOCYTES # (AUTO) 0.8 X10'3 (0-0.9); MONOCYTES % (AUTO) 7.2 % (2-12); NEUTROPHILS # (AUTO) 8.2 X10'3 (1.8-7.7); NEUTROPHILS % (AUTO) 75.1 % (42-75); PLATELET COUNT 250 X10'3 (140-440); RED BLOOD COUNT 3.64 X10'6 (4.20-5.60); RED CELL DISTRIBUTION WIDTH 14.6 % (11.5-14.5); WHITE BLOOD COUNT 10.9 X10'3 (4.5-11.0)
[2023-07-02 07:31] LABS: ALBUMIN 1.6 G/DL (3.4-5.0); ANION GAP 4 (8-16); BLOOD UREA NITROGEN 8 MG/DL (7-18); BUN/CREATININE RATIO 12.9 (10.0-20.0); CALCIUM 8.4 MG/DL (8.5-10.1); CHLORIDE 103 MMOL/L (99-107); CREATININE 0.62 MG/DL (0.40-0.90); GLUCOSE 104 MG/DL (70-104); MAGNESIUM 1.8 MG/DL (1.5-2.4); POTASSIUM 3.3 MMOL/L (3.5-5.1); SODIUM 138 MMOL/L (135-145); eCRCL 96 ML/MIN; eGFR > 90 ML/MIN
[2023-07-02] MEDS: K and/or MAG REPLACEMENT MC SCH (08:00)
[2023-07-02] MEDS: nystatin 15 GM powder TP SCH (08:00)
[2023-07-02] MEDS: furosemide 40mg tablet PO SCH (08:23)
[2023-07-02] MEDS: duloxetine 30mg CAPSULE.DR PO SCH (08:23)
[2023-07-02] MEDS: ARIPIPRAZOLE 10 MG TABLET PO SCH (08:23)
[2023-07-02] MEDS: docusate sod 100mg capsule PO SCH (08:23)
[2023-07-02 08:24] LABS: NUCLEATED RED BLOOD CELLS 1 /100WBC (0-0); TOTAL CELLS COUNTED 100
[2023-07-02] MEDS: potassium chloride 10mEq ER tablet PO SCH (08:24)
[2023-07-02 08:25] LABS: PLATELET ESTIMATE NORMAL
[2023-07-02 10:00] VITALS: BP 125/69; PULSE 70; RESP 16; TEMP 97.2; O2SAT 98
[2023-07-02] MEDS ORDERED: HYDR-3972 PO (11:18)
[2023-07-02] MEDS ORDERED: AMOX-580 PO (11:19)
[2023-07-02 14:45] VITALS: BP 128/76; PULSE 16; RESP 16; TEMP 97.3; O2SAT 96
--- NOTE | 2023-07-02 15:52 | NUR ---
Patient discharged to [facility]. Report given to Belkis CAMEJO. Patient IV removed from right hand. Incontinent of uring and bowel at this time due to not wanting to get up out of bed. tolerated all IV medications and has no c/o pain. WOUND CARE COMPLETED BEFORE DISCHARGE. patient had large bm. loose. continues on RA. All patient belongings left with patient.
--- NOTE | 2023-07-02 16:54 | NUR ---
[employer] documentation: I have reviewed and agree with all interventions, assessments performed and documented by NELL Hernandez.
== END 2023-07-02 17:06 | DRG 872 ==
LOC: ER 07:38 → ED HOLD 11:23 → EDBEDREQ 06-29 05:17 → PCU 3S 06-29 07:30 → SUR 3N 07-02 12:21 → PCU 3S 07-02 12:22
PROVIDERS: ADMIT Internal Medicine; ATTEND Internal Medicine
DX: A41.9 Sepsis, unspecified organism (principal); L03.115 Cellulitis of right lower limb; N39.0 Urinary tract infection, site not specified; E87.6 Hypokalemia; G40.909 Epilepsy, unspecified, not intractable, without status epilepticus; M19.90 Unspecified osteoarthritis, unspecified site; F32.A Depression, unspecified; F41.9 Anxiety disorder, unspecified; K21.9 Gastro-esophageal reflux disease without esophagitis; D64.9 Anemia, unspecified
CPT/HCPCS: 36415; 71045; 73590; 73701; 80048; 80053; 80202; 81001; 83605; 83735; 84145; 84484; 85007; 85025; 87040; 87077; 87088; 87186; 90686; 93971; 96365; 96367; 96375; 97161; 97530; 99285; A4649; A6250; A6258; A6449; G0378; J0692; J1200; J2270; J2405; J2543; J2930; J3370; J3490; J7030; J7040; J7050; Q9967

== ENCOUNTER 2023-07-05 10:56 | Observation (INO) | payer MEDICARE, MEDICAID ==
[~2023-07-05] VITALS: Ht 172.7 cm; Wt 184.4 kg
[~2023-07-05 10:56] MED LIST changes: +ACET-75 PO; +AMOX-580 PO; +ARIP10TA57 PO; +CELE100C99 PO; -CIPR500T5 PO; -CLON-369 PO; +DOXE3TAB4 PO; -DOXY-224 PO; +HYDR-3972 PO; -KEP500T PO; +KETO15CR2 TOP; -MEDR10TA10 PO; -OMEP40CA21 PO; +PRAZ2CAP2 PO; -RISP1TAB13 PO; +SEMA0.258 SQ; -TRAM50TA2 PO
--- NOTE | 2023-07-05 11:04 | NUR ---
dr martinez at bedside.
[2023-07-05 11:23] LABS: BASOPHILS % (AUTO) 0.4 % (0-1); EOSINOPHILS # (AUTO) 0.2 X10'3 (0-0.9); EOSINOPHILS % (AUTO) 1.7 % (0-6); HEMATOCRIT 34.6 % (35.0-45.0); HEMOGLOBIN 11.5 g/dl (12.0-16.0); LYMPHOCYTES # (AUTO) 2.9 X10'3 (1.1-4.8); LYMPHOCYTES % (AUTO) 23.5 % (21-51); MEAN CORPUSCULAR HEMOGLOBIN 28.9 PG (27.0-31.0); MEAN CORPUSCULAR HGB CONC 33.1 g/dL (33.0-36.5); MEAN CORPUSCULAR VOLUME 87.2 FL (78-98); MONOCYTES # (AUTO) 0.7 X10'3 (0-0.9); MONOCYTES % (AUTO) 5.6 % (2-12); NEUTROPHILS # (AUTO) 8.6 X10'3 (1.8-7.7); NEUTROPHILS % (AUTO) 68.8 % (42-75); PLATELET COUNT 397 X10'3 (140-440); RED BLOOD COUNT 3.97 X10'6 (4.20-5.60); RED CELL DISTRIBUTION WIDTH 14.5 % (11.5-14.5); WHITE BLOOD COUNT 12.4 X10'3 (4.5-11.0)
[2023-07-05 11:31] LABS: APTT 32 SECONDS (22-32); INR 1.1 INR; PROTHROMBIN TIME 11.7 SECONDS (9.0-12.0)
[2023-07-05 11:34] LABS: ALANINE AMINOTRANSFERASE 22 U/L (12-78); ALBUMIN 1.9 G/DL (3.4-5.0); ALBUMIN/GLOBULIN RATIO 0.4 (1.1-1.5); ALKALINE PHOSPHATASE 69 IU/L (46-116); ANION GAP 4 (8-16); ASPARTATE AMINO TRANSFERASE 11 U/L (10-37); BILIRUBIN,TOTAL 0.4 MG/DL (0.1-1.0); BLOOD UREA NITROGEN 8 MG/DL (7-18); BUN/CREATININE RATIO 12.9 (10.0-20.0); CALCIUM 8.5 MG/DL (8.5-10.1); CHLORIDE 102 MMOL/L (99-107); CREATININE 0.62 MG/DL (0.40-0.90); GLUCOSE 115 MG/DL (70-104); POTASSIUM 3.9 MMOL/L (3.5-5.1); SODIUM 138 MMOL/L (135-145); TOTAL CARBON DIOXIDE 32.4 MMOL/L (24-32); TOTAL PROTEIN 6.3 G/DL (6.4-8.2); eCRCL 103 ML/MIN; eGFR > 90 ML/MIN
[2023-07-05] MEDS ORDERED: iohexol 350MG/ML 100ml bottle IV ONE (12:07)
[2023-07-05 12:25] LABS: PLATELET ESTIMATE NORMAL; TOTAL CELLS COUNTED 100
--- NOTE | 2023-07-05 13:57 | NUR ---
PT. TURNED, REPOSITIONED AND BED CHANGED. PT PLACED IN POSITION OF COMFORT. FC PLACED. WOUND TO COCCYX DRESSED WITH OPTIFOAM. PHOTOS TAKEN OF BUTTOCKS AND R. HIP.
[2023-07-05 14:55] LABS: BILIRUBIN,URINE NEGATIVE (Neg); CLARITY,URINE CLEAR (Clear); COLOR,URINE STRAW (Yellow); GLUCOSE, URINE NEGATIVE (Neg); KETONES,URINE NEGATIVE (Neg); LEUKOCYTE ESTERASE ,URINE NEGATIVE (Neg); NITRITES, URINE NEGATIVE (Neg); OCCULT BLOOD,URINE TRACE-INTACT (Neg); PH,URINE 7.5 (4.8-8.0); PROTEIN,URINE NEGATIVE (Neg); UROBILINOGEN,URINE 0.2 E.U/dL (0.2-1.0)
[2023-07-05 15:10] LABS: SQUAMOUS EPITHELIAL CELL,UR FEW /LPF (FEW); UA COLLECTION TYPE FOLEY CATH
[2023-07-05 15:11] LABS: BACTERIA,URINE NONE SEEN /HPF (Neg); WBC,URINE 0-4 /HPF (0-4)
[2023-07-05 15:27] LABS: URINE AMPHETAMINE SCREEN NEGATIVE (Neg); URINE BARBITUATE SCREEN NEGATIVE (Neg); URINE BENZODIAZEPINES SCREEN NEGATIVE (Neg); URINE CANNABINOID SCREEN NEGATIVE (Neg); URINE COCAINE SCREEN NEGATIVE (Neg); URINE METHADONE SCREEN NEGATIVE (Neg); URINE OPIATE SCREEN NEGATIVE (Neg); URINE PHENCYCLIDINE SCREEN NEGATIVE (Neg)
[2023-07-05] MEDS ORDERED: acetaminophen 325mg tablet PO PRN ×2 (15:45→15:55)
[2023-07-05] MEDS ORDERED: ondansetron/PF 4mg/2ml inj IV PRN (15:45)
[2023-07-05] MEDS ORDERED: HYDROcodone/acetaminophen 10/325mg tab PO PRN (15:55)
[2023-07-05] MEDS: amox tr/potassium clavulanate 875/125mg TAB PO SCH (17:08)
[2023-07-05] MEDS: potassium chloride 10mEq ER tablet PO SCH (20:00)
[2023-07-05] MEDS: celeCOXIB 100mg capsule PO SCH (20:21)
[2023-07-05] MEDS: heparin, porcine 5000 units/ml vial SQ SCH (20:22)
[2023-07-05] MEDS ORDERED: prazosin 1mg capsule PO SCH (21:00)
[2023-07-05] MEDS ORDERED: DOXEPIN HCL 3 MG PO SCH (21:00)
[2023-07-05] MEDS ORDERED: temazepam 15mg capsule PO PRN (21:00)
--- NOTE | 2023-07-05 21:50 | NUR ---
Santos output 400mL
[2023-07-05 22:50] VITALS: BP 101/44; PULSE 83; RESP 16; O2SAT 97
[2023-07-06 02:00] VITALS: BP 100/50; PULSE 72; RESP 15; TEMP 98.9; O2SAT 93
[2023-07-06 06:00] VITALS: BP 111/51; PULSE 71; RESP 20; TEMP 99.2; O2SAT 97
--- NOTE | 2023-07-06 06:46 | NUR ---
Patient in room PCU 3011. I have received report from Ana LINDER and had the opportunity to ask questions and assume patient care.
--- NOTE | 2023-07-06 07:11 | NUR ---
Problems reprioritized. Patient report given, questions answered & plan of care reviewed with KAILASH JOVEL.
[2023-07-06 07:19] LABS: BASOPHILS % (AUTO) 0.3 % (0-1); EOSINOPHILS # (AUTO) 0.1 X10'3 (0-0.9); EOSINOPHILS % (AUTO) 1.3 % (0-6); HEMATOCRIT 34.1 % (35.0-45.0); HEMOGLOBIN 11.2 g/dl (12.0-16.0); LYMPHOCYTES % (AUTO) 21.2 % (21-51); MEAN CORPUSCULAR HEMOGLOBIN 28.4 PG (27.0-31.0); MEAN CORPUSCULAR HGB CONC 32.8 g/dL (33.0-36.5); MEAN CORPUSCULAR VOLUME 86.4 FL (78-98); MEAN PLATELET VOLUME 7.7 FL (7.4-10.4); MONOCYTES # (AUTO) 0.7 X10'3 (0-0.9); MONOCYTES % (AUTO) 7.1 % (2-12); NEUTROPHILS # (AUTO) 6.7 X10'3 (1.8-7.7); NEUTROPHILS % (AUTO) 70.1 % (42-75); PLATELET COUNT 363 X10'3 (140-440); RED BLOOD COUNT 3.94 X10'6 (4.20-5.60); RED CELL DISTRIBUTION WIDTH 14.2 % (11.5-14.5); WHITE BLOOD COUNT 9.6 X10'3 (4.5-11.0)
[2023-07-06 07:31] LABS: ALBUMIN 1.7 G/DL (3.4-5.0); ANION GAP 2 (8-16); BLOOD UREA NITROGEN 6 MG/DL (7-18); BUN/CREATININE RATIO 11.3 (10.0-20.0); CALCIUM 8.4 MG/DL (8.5-10.1); CHLORIDE 100 MMOL/L (99-107); CREATININE 0.53 MG/DL (0.40-0.90); GLUCOSE 92 MG/DL (70-104); SODIUM 136 MMOL/L (135-145); eCRCL 121 ML/MIN; eGFR > 90 ML/MIN
[2023-07-06] MEDS: celeCOXIB 100mg capsule PO SCH (07:51)
[2023-07-06] MEDS: potassium chloride 10mEq ER tablet PO SCH (07:51)
[2023-07-06] MEDS: amox tr/potassium clavulanate 875/125mg TAB PO SCH (07:51)
[2023-07-06] MEDS: heparin, porcine 5000 units/ml vial SQ SCH (07:53)
[2023-07-06] MEDS ORDERED: ARIPIPRAZOLE 10 MG TABLET PO SCH (08:00)
[2023-07-06] MEDS ORDERED: duloxetine 30mg CAPSULE.DR PO SCH (08:00)
[2023-07-06] MEDS ORDERED: nystatin 15 GM powder TP SCH (08:00)
[2023-07-06] MEDS ORDERED: furosemide 40mg tablet PO SCH (08:00)
[2023-07-06 11:34] VITALS: BP 83/56; PULSE 82; RESP 10; TEMP 98.3; O2SAT 97
--- NOTE | 2023-07-06 12:07 | NUR ---
Low arabella consult: Pt presents with a low arabella score of 11 per EMR. Per RN physical assessment pt has cellulitis to leg and a reddened area to sacrum thus resulting in a wound care consult; pending [facility] note. Pt is currently on carbohydrate controlled diet which is not warranted given A1c of 5.8% this admit which is down from 5.9% on 08/23/21 per EMR. Discussed diet recommendation with RN. Addendum: 07/06/23 at [address] Amended: Links added.
--- NOTE | 2023-07-06 13:16 | NUR ---
PRESSURE ULCER EDUCATION: DEFINITION: A pressure ulcer is an area of skin that breaks down when you stay in one position too long. The constant pressure against the skin reduces the blood flow to that area and the affected tissue dies. CAUSES: "Being bedridden or in a wheelchair "Fragile skin "Having a chronic condition, such as diabetes or vascular disease "Inability to move certain parts of your body without assistance "Older age "Incontinence of urine or stool SYMPTOMS: "A reddened area that DOES NOT turn white when pressed on - this can be the beginning of a pressure ulcer "A blister, deep sore or a crater - these can be advanced pressure ulcers FIRST AID: "Relieve the pressure on this area "Keep the area clean and dry "Call your primary doctor if you see any of the above symptoms "DO NOT massage the area "DO NOT use a donut shaped or ring shaped pillow- these actually interfere with the blood flow and cause complications PREVENTION: "Check for pressure ulcers everyday "Change position at least every two hours to relieve pressure "Use items that help relieve pressure- pillows, sheepskin, foam padding, and powders. "Keep skin clean and dry "Eat healthy well balanced meals "Exercise daily IF YOU SEE ANY OF THESE SYMPTOMS WHILE IN THE HOSPITAL - TELL YOUR NURSE IMMEDIATELY. IF YOU SEE ANY OF THESE SYMPTOMS WHILE AT HOME OR HAVE ANY QUESTIONS OR CONCERNS ABOUT PRESSURE ULCERS - CALL YOUR PRIMARY DOCTOR IMMEDIATELY. Addendum: 07/06/23 at 1316 by Anette Self LVN Amended: Links added.
[2023-07-06 15:00] VITALS: BP 93/53; PULSE 86; RESP 12; TEMP 98.4; O2SAT 97
--- NOTE | 2023-07-06 17:56 | NUR ---
patient seen by Dr Burns, is for DC to [facility]. report called to Stephanie CAMEJO. [facility] condition
[2023-07-09] MEDS ORDERED: Semaglutide (Ozempic) 0.5 MG SQ SCH (10:00)
== END 2023-07-06 17:55 ==
LOC: ER 10:56 → ED HOLD 15:51 → INTOOBSV 15:51 → PCU 3S 22:25
PROVIDERS: ADMIT Student in an Organized Health Care Education/Training Program; ATTEND Student in an Organized Health Care Education/Training Program
DX: R55 Syncope and collapse (principal); R41.82 Altered mental status, unspecified; F32.A Depression, unspecified; I89.0 Lymphedema, not elsewhere classified; G47.33 Obstructive sleep apnea (adult) (pediatric); G89.4 Chronic pain syndrome; L03.90 Cellulitis, unspecified; E66.01 Morbid (severe) obesity due to excess calories; Z86.73 Personal history of transient ischemic attack (TIA), and cerebral infarction without residual deficits; Z79.899 Other long term (current) drug therapy
CPT/HCPCS: 36415; 70450; 70496; 70498; 71045; 80048; 80053; 80305; 81001; 82948; 83036; 85007; 85025; 85610; 85730; 87081; 96372; 99285; A6222; G0378; J1644; J3490; Q9967; A4314; A4615; A6212; A6213

== ENCOUNTER 2023-09-06 12:22 | Emergency (ER) | payer MEDICARE, MEDICAID ==
[~2023-09-06] VITALS: Ht 162.6 cm; Wt 131.8 kg
[~2023-09-06 12:22] MED LIST changes: -AMOX-580 PO; +CELE-148 PO; -CELE100C99 PO; -KETO15CR2 TOP
[2023-09-06] MEDS ORDERED: dexamethasone sod phosphate 10mg/ml inj IV STA (13:55)
[2023-09-06 15:18] LABS: BASOPHILS % (AUTO) 0.4 % (0-1); EOSINOPHILS % (AUTO) 0.1 % (0-6); HEMATOCRIT 41.9 % (35.0-45.0); HEMOGLOBIN 13.8 g/dl (12.0-16.0); LYMPHOCYTES # (AUTO) 0.6 X10'3 (1.1-4.8); LYMPHOCYTES % (AUTO) 9.8 % (21-51); MEAN CORPUSCULAR HEMOGLOBIN 28.4 PG (27.0-31.0); MEAN CORPUSCULAR VOLUME 86.1 FL (78-98); MONOCYTES # (AUTO) 0.4 X10'3 (0-0.9); MONOCYTES % (AUTO) 5.6 % (2-12); NEUTROPHILS # (AUTO) 5.6 X10'3 (1.8-7.7); NEUTROPHILS % (AUTO) 84.1 % (42-75); PLATELET COUNT 196 X10'3 (140-440); RED BLOOD COUNT 4.86 X10'6 (4.20-5.60); RED CELL DISTRIBUTION WIDTH 14.5 % (11.5-14.5); WHITE BLOOD COUNT 6.6 X10'3 (4.5-11.0)
[2023-09-06 15:32] LABS: ALANINE AMINOTRANSFERASE 14 U/L (12-78); ALBUMIN/GLOBULIN RATIO 0.7 (1.1-1.5); ALKALINE PHOSPHATASE 80 IU/L (46-116); ANION GAP 7 (8-16); ASPARTATE AMINO TRANSFERASE 10 U/L (10-37); BILIRUBIN,TOTAL 0.6 MG/DL (0.1-1.0); BLOOD UREA NITROGEN 8 MG/DL (7-18); BUN/CREATININE RATIO 13.3 (10.0-20.0); CHLORIDE 102 MMOL/L (99-107); GLUCOSE 111 MG/DL (70-104); POTASSIUM 3.9 MMOL/L (3.5-5.1); SODIUM 138 MMOL/L (135-145); TOTAL CARBON DIOXIDE 28.9 MMOL/L (24-32); TOTAL PROTEIN 7.6 G/DL (6.4-8.2); eCRCL 91 ML/MIN; eGFR > 90 ML/MIN
[2023-09-06 15:39] LABS: PRO BRAIN NATRIURETIC PEPTIDE 35 PG/ML (0-125)
[2023-09-06 16:21] LABS: BILIRUBIN,URINE NEGATIVE (Neg); CLARITY,URINE SLIGHTLY CLOUDY (Clear); COLOR,URINE YELLOW (Yellow); GLUCOSE, URINE NEGATIVE (Neg); KETONES,URINE TRACE mg/dl (Neg); LEUKOCYTE ESTERASE ,URINE NEGATIVE (Neg); NITRITES, URINE NEGATIVE (Neg); OCCULT BLOOD,URINE NEGATIVE (Neg); PROTEIN,URINE NEGATIVE (Neg); UROBILINOGEN,URINE 0.2 E.U/dL (0.2-1.0)
[2023-09-06 16:37] LABS: UA COLLECTION TYPE STRAIGHT CATH
[2023-09-06 16:38] LABS: MUCUS STRANDS FEW /LPF (Neg); SQUAMOUS EPITHELIAL CELL,UR FEW /LPF (FEW)
[2023-09-06 16:39] LABS: BACTERIA,URINE NONE SEEN /HPF (Neg); COARSE GRANULAR CAST 0-3 /LPF (NEGATIVE); RBC,URINE 0-2 /HPF (0-2); WBC,URINE 0-4 /HPF (0-4); YEAST FEW /HPF (NEGATIVE)
[2023-09-06] MEDS ORDERED: CELE-193 PO (18:02)
[2023-09-06] MEDS ORDERED: DOXE3TAB4 PO (18:02)
[2023-09-06] MEDS ORDERED: NYST30CR35 TOP (18:02)
[2023-09-06] MEDS ORDERED: ANAS1TAB10 PO (18:02)
[2023-09-06] MEDS ORDERED: PRED1TAB PO (18:02)
[2023-09-06] MEDS ORDERED: ENOX100S3 SQ (18:02)
[2023-09-06] MEDS ORDERED: LEVO175T2 PO (18:02)
[2023-09-06] MEDS ORDERED: GUAI100L97 PO (18:02)
[2023-09-06] MEDS ORDERED: LEVE500T99 PO (18:02)
[2023-09-06] MEDS ORDERED: FURO-150 PO (18:02)
[2023-09-06] MEDS ORDERED: DOCU-148 PO (18:02)
[2023-09-06] MEDS ORDERED: NIRM1TAB9 PO (18:02)
[2023-09-06] MEDS ORDERED: ARIP5TAB14 PO (18:02)
[2023-09-06 19:21] VITALS: BP 157/99; PULSE 67; RESP 15; TEMP 97.9; O2SAT 95
== END 2023-09-06 19:25 | disposition home or self-care (01) ==
LOC: ER 12:22
DX: U07.1 COVID-19 (principal); R55 Syncope and collapse; R53.83 Other fatigue; Z88.1 Allergy status to other antibiotic agents; Z79.899 Other long term (current) drug therapy; Z79.2 Long term (current) use of antibiotics
CPT/HCPCS: 36415; 70450; 71045; 80053; 81001; 83605; 83880; 84484; 85025; 87040; 87502; 87503; 87811; 93005; 96374; 99285; J1100; C1758